=== PATIENT | female | born 1965 | race Caucasian/White ===

== ENCOUNTER → 2017-03-07 | Outpatient (CLI) | payer BC ==
[2017-03-07 12:24] LABS: CHOLESTEROL/HDL RATIO 2.7
== END | disposition home or self-care (01) ==
LOC: C.LABBFT 07:43
PROVIDERS: ATTEND Psychiatry & Neurology Psychiatry
DX: Z51.81 Encounter for therapeutic drug level monitoring (principal); Z79.899 Other long term (current) drug therapy

== ENCOUNTER → 2017-03-08 | Outpatient (CLI) | payer BC ==
[2017-03-08 12:49] LABS: ALT/SGPT 20 U/L (12-78); AST/SGOT 17 U/L (15-37); BLOOD UREA NITROGEN 11 mg/dl (7-18); BUN/CREATININE RATIO 13.9 (10-20); CALCIUM 8.8 mg/dl (8.5-10.1); CARBON DIOXIDE 28 mmol/L (21-32); CHLORIDE 107 mmol/L (98-107); CREATININE 0.77 mg/dl (0.60-1.20); GLUCOSE 83 mg/dl (70-99); POTASSIUM 4.2 mmol/L (3.5-5.1); SODIUM 139 mmol/L (136-145)
[2017-03-08 12:59] LABS: ALB/GLOB RATIO 1.1 (0.9-2); ALKALINE PHOSPHATASE 59 U/L (45-117)
== END | disposition home or self-care (01) ==
LOC: C.LAB1850 11:25
PROVIDERS: ATTEND Internal Medicine Endocrinology, Diabetes & Metabolism
DX: E03.9 Hypothyroidism, unspecified (principal); M79.1 Myalgia

== ENCOUNTER → 2017-06-16 | Outpatient (CLI) | payer BC | END | disposition home or self-care (01) | LOC: C.LABBFT 09:57 | PROVIDERS: ATTEND Internal Medicine Endocrinology, Diabetes & Metabolism | DX: E03.9 Hypothyroidism, unspecified (principal); E55.9 Vitamin D deficiency, unspecified; R20.2 Paresthesia of skin ==

== ENCOUNTER → 2017-08-23 | Outpatient (CLI) | payer BC | END | disposition home or self-care (01) | LOC: C.LABBFT 10:55 | PROVIDERS: ATTEND Internal Medicine Endocrinology, Diabetes & Metabolism | DX: E55.9 Vitamin D deficiency, unspecified (principal); E03.9 Hypothyroidism, unspecified ==

== ENCOUNTER → 2017-10-19 | Outpatient (CLI) | payer BC | END | disposition home or self-care (01) | LOC: C.LABBFT 09:26 | PROVIDERS: ATTEND Internal Medicine Endocrinology, Diabetes & Metabolism | DX: E03.9 Hypothyroidism, unspecified (principal) ==

== ENCOUNTER 2018-09-14 08:58 | Observation (INO) ==
--- NOTE | 2018-08-28 09:01 | PAT Medication Instructions ---
Medication Instructions Date of Service August 28, 2018 Home Medications L. acidophilus [Probiotic] 1 cap PO QDD calcium carbonate [Calcium 600] 1,200 mg PO DAILY cholecalciferol (vitamin D3) 2,000 unit PO QDL clonazepam 0.25 mg PO HS PRN desvenlafaxine succinate 100 mg PO QAM fluticasone [Flonase Allergy] 2 spray INTRANASAL QAM olwdshkggav-gosirupff-tin C-Mn 1 tab PO BIDM levothyroxine 75 mcg PO QAM liothyronine [Cytomel] 5 mcg PO DAILY liothyronine [Cytomel] 10 mcg PO QAM magnesium oxide 400 mg PO BIDM omega 2-xea-gdu-fish oil [Fish Oil] 2 cap PO BID trazodone 50 mg PO HS vortioxetine [Trintellix] 5 mg PO QAM zinc 25 mg PO QDD STOP taking 2 weeks before surgery skvdzkybzxx-qtfmjwafg-jqd C-Mn 1 tab PO BIDM omega 9-bsa-fmx-fish oil [Fish Oil] 2 cap PO BID DO NOT take the morning of surgery calcium carbonate [Calcium 600] 1,200 mg PO DAILY magnesium oxide 400 mg PO BIDM Take morning of surgery With a small sip of water, OTHERWISE NOTHING TO EAT OR DRINK AFTER MIDNIGHT: desvenlafaxine succinate 100 mg PO QAM fluticasone [Flonase Allergy] 2 spray INTRANASAL QAM levothyroxine 75 mcg PO QAM liothyronine [Cytomel] 10 mcg PO QAM vortioxetine [Trintellix] 5 mg PO QAM Take evening before surgery L. acidophilus [Probiotic] 1 cap PO QDD clonazepam 0.25 mg PO HS PRN (if needed) liothyronine [Cytomel] 5 mcg PO DAILY magnesium oxide 400 mg PO BIDM trazodone 50 mg PO HS zinc 25 mg PO QDD Other Notes If you have any questions please call us at [phone] or [phone] or [phone] or [phone]
--- NOTE | 2018-08-28 12:07 | Anesthesiology Consultation ---
Date of Service August 28, 2018 Assessment & Plan (1) Encounter for pre-operative examination: Check test a.m. day of surgery Chart Review Chart Review: Acceptable Risk for Surgery and Patient seen in Pre Admission Testing Teaching & Discussion Instructed NPO after midnight before surgery, except medications with 15 cc of water. Medication instructions provided according to the PAT guidelines. History Surgery Operation Date: 09/14/18 09:20 Proposed Procedures p Robotic Total Laparoscopic Hysterectomy - Cheryle Vickers MD Height/Weight Height: 56 ft Weight: 64.9 kg Allergies Allergy/AdvReac Type Severity Reaction Status Date / Time Penicillins Allergy Mild Hives Verified 08/21/18 12:03 codeine Allergy Hives Verified 08/21/18 12:03 guaifenesin Allergy Hives Verified 08/21/18 12:03 morphine Allergy Hives Verified 08/21/18 12:03 pseudoephedrine Allergy Hives Verified 08/21/18 12:03 Sulfa (Sulfonamide Allergy Hives Verified 08/21/18 12:03 Antibiotics) thimerosal Allergy ulceratiions Verified 08/21/18 12:03 in eye Medications Home Medications Medication Instructions Recorded Confirmed Last Taken L. acidophilus-L. rhamnosus 1 cap PO QDD 08/21/18 08/21/18 Unknown [Probiotic] calcium carbonate [Calcium 600] 1,200 mg PO DAILY 08/21/18 08/21/18 Unknown cholecalciferol (vitamin D3) 2,000 unit PO QDL 08/21/18 08/21/18 Unknown [Vitamin D3] clonazepam 0.25 mg PO HS PRN 08/21/18 08/21/18 Unknown desvenlafaxine succinate 100 mg PO QAM 08/21/18 08/21/18 Unknown fluticasone [Flonase Allergy 2 spray INTRANASAL QAM 08/21/18 08/21/18 Unknown Relief] dxrzmzfkbpo-tevejcwxq-foj C-Mn 1 tab PO BIDM 08/21/18 08/21/18 Unknown [Glucosamine Chondroitin MaxStr] levothyroxine 75 mcg PO QAM 08/21/18 08/21/18 Unknown liothyronine [Cytomel] 5 mcg PO DAILY 08/21/18 08/21/18 Unknown liothyronine [Cytomel] 10 mcg PO QAM 08/21/18 08/21/18 Unknown magnesium oxide 400 mg PO BIDM 08/21/18 08/21/18 Unknown omega 6-cnz-yqh-fish oil [Fish Oil] 2 cap PO BID 08/21/18 08/21/18 Unknown trazodone 50 mg PO HS 08/21/18 08/21/18 Unknown vortioxetine [Trintellix] 5 mg PO QAM 08/21/18 08/21/18 Unknown zinc 25 mg PO QDD 08/21/18 08/21/18 Unknown Past Medical History Medical History Abnormal uterine bleeding Anxiety Depression Fibromyalgia Hearing deficit left ear Hypothyroidism Post traumatic stress disorder Sciatica LLE Past Family History Family History Father Family history of diabetes mellitus Family/Other Family history of diabetes mellitus Past Surgical History Surgical History History of tonsillectomy and adenoidectomy Hx of appendectomy Hx of carpal tunnel repair right Hx of cholecystectomy 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 Physical Exam Vital Signs BP: 112/73 P: 71bpm SPO2: 96% RA T: 98.0 F R: 12 ENMT Mouth: + dental bridge (2 teeth upper L and lower R) and + dental restorations (few caps); no chipped teeth and no loose teeth Thyromental Distance: < 3.5 Finger Breadths (3) Mallampati Class: II Neck normal visual inspection; neck extension not limited Respiratory normal respiratory effort Auscultation: lungs clear to auscultation bilaterally Cardiovascular Rate/Rhythm: regular rate and regular rhythm Heart Sounds: no murmur Vessels: no carotid bruit Testing Electrocardiogram Date: 08/28/18 Sinus rhythm at 60 bpm with first-degree AV block. Laboratory Results 08/28/18 11:58 08/28/18 11:58 Blood Type A Positive 08/28/18 11:58 Antibody Screen NEGATIVE 08/28/18 11:58
[2018-08-28 13:28] LABS: Basophils # (auto) 0.02 K/uL (0-0.2); Basophils % (auto) 0.3 %; Eosinophils # (auto) 0.09 K/uL (0-0.5); Eosinophils % (auto) 1.3 %; Hematocrit (blood only) 41.4 % (37-47); Hemoglobin 13.6 g/dL (12.0-16.0); Immature Granulocytes # (auto) 0.02 K/uL (0.00-0.02); Immature Granulocytes % (auto) 0.3 %; Lymphocytes # (auto) 2.63 K/uL (1.2-3.4); Mean Corpuscular Hgb Conc 32.9 g/dL (32-36); Mean Corpuscular Volume 88.7 fL (80-100); Mean Platelet Volume 11.3 fL (7.4-10.4); Monocytes # (auto) 0.44 K/uL (0.11-0.59); Monocytes % (auto) 6.2 %; Neutrophils # (auto) 3.91 K/uL (1.4-6.5); Neutrophils % (auto) 54.9 %; Platelet Count 190 K/uL (130-400); RDW Coefficient of Variation 13.6 % (11.5-14.5); RDW Standard Deviation 43.8 fL (36.4-46.3); Red Blood Count 4.67 M/uL (4.2-5.4); White Blood Count 7.11 K/uL (4.8-10.8)
[2018-08-28 13:49] LABS: Calcium 8.8 mg/dl (8.5-10.1); Creatinine Clr Calc Pharmacy 97.4 ml/min; Est GFR (African American) 116.3; Est GFR (Non-African American) 100.3; Potassium 4.2 mmol/L (3.5-5.1)
[~2018-09-14 08:58] MED LIST: CEFAZOLIN 2000MG 2,000 MG/15 ML SYR IV SCH; LR 15ML/HR IV SCH; [UNRECOGNIZED DRUG - REMARK] SCH
[2018-09-14] MEDS ORDERED: SCOPOLAMINE 1.5 MG TDSY ONE (09:13)
--- NOTE | 2018-09-14 10:07 | History & Physical Bridge Note ---
Date of Service September 14, 2018 History & Physical Bridge Note I have examined the patient, reviewed the History & Physical and in the interval since the performance of the History & Physical I have noted the following changes of clinical significance: no changes noted
[2018-09-14 10:19] LABS: Pregnancy Test, Serum Negative (Negative)
[2018-09-14] MEDS ORDERED: SIMETHICONE 80 MG CHEW PO PRN (10:21)
[2018-09-14] MEDS ORDERED: ACETAMINOPHEN 325 MG TAB PO PRN (10:21)
[2018-09-14] MEDS ORDERED: MAGNESIUM HYDROXIDE SUSP 30 ML UDC PO PRN (10:21)
[2018-09-14] MEDS ORDERED: MEPERIDINE HCL 50 MG/ML CARP IV PRN ×2 (10:21)
[2018-09-14] MEDS ORDERED: OXYCODONE/ACETAMINOPHEN 5mg/325mg TAB PO PRN (10:21)
[2018-09-14] MEDS ORDERED: KETOROLAC 30 MG/ML VIAL IV PRN (10:21)
[2018-09-14] MEDS ORDERED: MIDAZOLAM HCL 1 MG/ML 2ML VIAL ONE (10:27)
[2018-09-14] MEDS ORDERED: LIDOCAINE HCL 2% 2 ML VIAL/AMP(20MG/ML) INFIL ONE (10:27)
[2018-09-14] MEDS ORDERED: PROPOFOL IV EMULSION 10 MG/ML 20 ML VIAL IV ONE (10:27)
[2018-09-14] MEDS ORDERED: DEXAMETHASONE SOD INJ 4 MG/ML VIAL ONE (10:27)
[2018-09-14] MEDS ORDERED: ONDANSETRON INJ 2 MG/ML 2 ML VIAL ONE ×2 (10:27→12:20)
[2018-09-14] MEDS ORDERED: fentaNYL citrate 100 MCG/2 ML VIAL ONE ×2 (10:27)
[2018-09-14] MEDS ORDERED: ROCURONIUM BROMIDE 10 MG/ML 5 ML VIAL ONE ×2 (10:27→12:20)
[2018-09-14] MEDS ORDERED: ePHEDrine sulfate 50 MG/ML AMP IV PRN (10:31)
[2018-09-14] MEDS ORDERED: ATROPINE SULFATE 0.1 MG/ML 10ML SYR IV PRN (10:31)
[2018-09-14] MEDS ORDERED: ACETAMINOPHEN 1000 MG/100 ML IV IV ONE (10:41)
[2018-09-14] MEDS ORDERED: HYDROmorphone INJ 2 MG/ML SYR/VIAL ONE (11:21)
[2018-09-14] MEDS ORDERED: NEOSTIGMINE METHYLSULFATE 5 MG/5 ML SYR ONE (12:20)
[2018-09-14] MEDS ORDERED: GLYCOPYRROLATE 0.2 MG/ML VIAL ONE (12:20)
[2018-09-14] MEDS ORDERED: METHYLENE BLUE 0.5% 10 ML VIAL ONE (12:20)
[2018-09-14] MEDS ORDERED: KETOROLAC 30 MG/ML VIAL ONE (12:20)
--- NOTE | 2018-09-14 12:38 | Operative Report ---
Post Operative Report Pre & Post Diagnosis Operation Date: 09/14/18 10:30 Pre-Op Diagnosis: Perimenopausal Menorrhagia Post-Op Diagnosis: Perimenopausal Menorrhagia Procedure Operation Date: 09/14/18 10:30 Actual Procedures p Robotic Assisted Total Laparoscopic Hysterectomy Bilateral Salpingectomy, Lysis of Adhesion - Cheryle Vickers MD Surgeon Cheryle Vickers MD Community Educator Octavia Estimated Blood Loss 20 Findings Consistent with Post-Op Diagnosis Significant abdominal adhesive disease Specimens Uterus, Fallopian Tubes, Cervix Anesthesia Type General Complications none Disposition Accompanied Patient To Recovery: Yes Disposition: Recovery Room Description of Procedure The patient was brought to the operating room and placed on the table in dorsal lithotomy position with yellofin stirrups, prepped and draped in standard sterile fashion, and a hard time out was taken prior to proceeding. The bladder was emptied via placement of lynn catheter. A [employer] uterine manipulator was placed in the usual manner. Attention was then turned to the abdomen where optical entry was made at the umbilicus without complication. The abdomen was insufflated and the patient was placed in steep Trendelenburg. Under direct visualization, right and left lower quadrant ports were placed without complication. Survey of the abdomen revealed normal liver edge and LUQ, but significant omental adhesions to midline and RLQ. Straight stick laparoscopy was used with cold sharp and blunt dissection to take down these adhesions carefully, restoring normal visibility. The robot was then docked and surgery proceeded with the surgeon at the console. The ureter was identified on each side and traced along its course into the pelvis. Each fallopian tube in turn was elevated, dissected off the mesosalpinx and left attached to the uterine cornu. Each utero-ovarian ligament was ligated and then divided. Each round ligament was ligated and then divided. The anterior leaflets of the broad ligament were dissected to create a bladder flap which was gently mobilized downward below the colpotomy cup ridge. Each uterine artery was skeletonized, ligated, and then divided. Circumferential colpotomy was then completed following the colpotomy cup guide. The cervix, uterus and bilateral tubes were then retrieved en bloc via the vagina. The vaginal cuff was then closed using V-Milana suture in the typical running non-locked fashion. The needle was retrieved through a trocar, and suction/irrigation was then used to remove any debris and ensure good hemostasis at all working sites. After administration of IV Methylene Blue dye, cystoscopy was then utilized to examine the bladder dome which was free of suture or injury. The ureteral orifices were observed until a good strong jet of blue stained urine was seen from each. The bladder was then drained. The robot was then undocked, and abdominal trocar sites were closed using a UR6 at the umbilical fascia and 4-0 monocryl at each of the skin incisions. A dermabond dressing was applied to each site. A final vaginal exam ensured no materials were present in the vagina and the cuff was intact. The patient was then transferred in stable condition to the recovery room. I attest to the content of the Intraoperative Record and any orders documented therein. Any exceptions are noted below.
[2018-09-14] MEDS: HYDROmorphone INJ 1 MG/ML SYRINGE IV PRN ×9 (13:00→21:40)
--- NOTE | 2018-09-14 13:17 | Anesthesiology Progress Note ---
Date of Service September 14, 2018 Anesthesia Post Procedure Vital Signs Vital Signs: Temp Pulse Pulse Resp BP Pulse Ox 09/14/18 13:10 80 14 114/76 97 09/14/18 13:00 90 17 119/78 98 09/14/18 12:50 92 H 12 123/67 97 09/14/18 12:47 36.9 C 96 H 14 121/79 99 09/14/18 09:23 36.6 C 77 16 123/77 98 Pain Intensity Medial Abdomen: Pain Intensity: 7 Notes Mental Status: alert / awake / arousable Patient Amnestic to Procedure: Yes Nausea / Vomiting: adequately controlled Pain: adequately controlled Airway Patency, RR, SpO2: stable & adequate BP & HR: stable & adequate Hydration State: stable & adequate Anesthetic Complications: no major complications apparent and Pt Satisfied with anesthetic care
[2018-09-14] MEDS: ONDANSETRON INJ 2 MG/ML 2 ML VIAL IV PRN ×2 (14:45→19:53)
[2018-09-14 15:20] LABS: Hematocrit (blood only) 38.7 % (37-47); Hemoglobin 13.1 g/dL (12.0-16.0)
[2018-09-14] MEDS ORDERED: clonazePAM 0.5 MG TAB PO STA (17:39)
[2018-09-14] MEDS: PROMETHAZINE HCL 25 MG in SODIUM CHLORIDE 0.9% 50 ML IV PRN (17:54)
[2018-09-14] MEDS: LACTATED RINGER'S 1,000 ML IV SCH ×2 (17:58→19:41)
--- NOTE | 2018-09-14 18:05 | Gynecologic Progress Note ---
Date of Service September 14, 2018 Assessment & Plan (1) Encounter for postoperative care: Patient is POD#0 from Robotic TLH/Salpingectomy/Cystoscopy including significant lysis of abdominal adhesions. She has a postop course complicated by nausea, abdominal pain, and what appears to be anxiety as well. Vitals are currently normal and her post op Hgb was reassuring. Plan: Decrease diet to clears as patient feels able, and do not force solids until appetite is there. Changed pain medication orders to dilaudid 1-2mg IV Q2h prn which is stocked on this unit and more familiar to nursing staff here. Will give first dose now, as well as patient's home dose of klonopin right now. At 9pm, to allow some time between several sedating meds, can then give patient's home dose of trazodone. Antinausea meds available prn. Patient to stay overnight for observation and will send additional labs including WBC and CMP now, with home meds ordered for AM since she will be here. If abdominal pain worsens from here, given significant work around the bowel, would have low threshold to obtain flat plate for ileus vs perforation. Plan reviewed with GLEN Hobbs who is in agreement and knows she can contact me at any time via [employer] regarding Ms. Aguilar. Dr. Dudley, medical front desk coordinator for my practice, will also be brought up to date. Subjective Patient visited on post surgery floor. She is currently in tears, complaining specifically of nausea, and of abdominal pain. GLEN Hobbs arrived in room as well shortly after my arrival. She confirms that patient has struggled with nausea, and therefore she was given IV antiemetic, but pain medicine was not recently given on the theory it would worsen her nausea - and could ultimately cause emesis, which would not of course improve the pain. MAR reviewed with Faby at pt bedside and I see the last dose of any narcotic was 1:55pm in PACU, and patient has had no further narcotic now at 5:30pm. She did receive toradol but it is not relieving her pain. The patient says she did tolerate a cracker PO and has not vomited at all. However, once RN leaves the room, patient cries harder and admits she has been afraid to admit she is still nauseated or to avoid eating, as she believes if she c/o nausea the pain meds will be withheld even longer. She feels she has been encouraged to eat solid foods even though she would prefer not to eat anything at all with her current belly pain and nausea. The patient did ambulate to BR and was able to void, but felt quite lightheaded. She did not pass out. She has not had percocet yet. Empathy offered for what has surely been a fearful and painful afternoon. This brings the patient to admit she feels very anxious and that she is struggling not to panic. I gather from the RN that Estefani was acting agitated in PACU and expressing a fear of the patient in the next bed over. I note that she usually takes klonopin at home and tramadol at bedtime. She was asked if she would be interested in an anxiolytic to help her relax while recovery proceeds and she is eager for that. I also note that this patient is on an unusual floor for our robotic hysterectomy patients, as the 4N rooms were full. RN notes that the demerol Ms. Aguilar was ordered is not stocked here and has to be sent to this floor one dose at at time, and that she (the RN) is more comfortable with dilaudid which they *do* stock here. Physical Exam Vital Signs (Past 24 Hours): Last Vital Signs Temp 36.7 C 09/14/18 14:20 Pulse 80 09/14/18 16:19 Resp 17 09/14/18 16:19 BP 120/78 09/14/18 16:19 Pulse Ox 95 09/14/18 16:19 Constitutional: + ill appearing and + in distress Crying, moving very little in bed, speaking at low volume just above a mumble. Respiratory: normal respiratory effort and able to speak in complete s entences; no respiratory distress Cardiovascular: Rate/Rhythm: regular rate Gastrointestinal (Abdomen): Inspection/Auscultation: abdomen normal to inspection, + abdominal surgical scar and + abdominal surgical incision; abdomen not distended Percussion/Palpation: abdomen soft; abdomen nontender, no guarding, not tympanic to percussion and no fluid wave Skin: no rashes, warm and dry Psychiatric: Orientation: alert and oriented x 3 Eye Contact: good eye contact Affect: + anxious affect and + tearful affect Genitourinary: Mckayla pad without blood Results & Data Laboratory Results Laboratory Results - last 24 hr 09/14/18 09/14/18 09:26 15:06 Hgb 13.1 Hct 38.7 HCG, Qual Negative
[2018-09-14 18:41] LABS: Basophils # (auto) 0.01 K/uL (0-0.2); Basophils % (auto) 0.1 %; Hematocrit (blood only) 38.4 % (37-47); Hemoglobin 13.1 g/dL (12.0-16.0); Immature Granulocytes # (auto) 0.02 K/uL (0.00-0.02); Immature Granulocytes % (auto) 0.2 %; Lymphocytes # (auto) 0.92 K/uL (1.2-3.4); Lymphocytes % (auto) 7.4 %; Mean Corpuscular Hgb Conc 34.1 g/dL (32-36); Mean Corpuscular Volume 87.7 fL (80-100); Monocytes # (auto) 0.38 K/uL (0.11-0.59); Neutrophils # (auto) 11.18 K/uL (1.4-6.5); Neutrophils % (auto) 89.3 %; Platelet Count 176 K/uL (130-400); RDW Coefficient of Variation 13.4 % (11.5-14.5); RDW Standard Deviation 42.7 fL (36.4-46.3); Red Blood Count 4.38 M/uL (4.2-5.4); White Blood Count 12.51 K/uL (4.8-10.8)
[2018-09-14 18:56] LABS: Albumin Level 3.2 gm/dl (3.4-5.0); BUN Creatinine Ratio 16.4 (10-20); Calcium 8.2 mg/dl (8.5-10.1); Creatinine Clr Calc Pharmacy 71.6 ml/min; Est GFR (African American) 89.4; Est GFR (Non-African American) 77.1; Potassium 3.8 mmol/L (3.5-5.1)
[2018-09-14 18:59] LABS: Albumin Globulin Ratio 0.9 (0.9-2); Bilirubin,Total 0.4 mg/dl (0.2-1); Globulin 3.5 gm/dl (2.5-4.0); Total Protein 6.7 gm/dl (6.4-8.2)
[2018-09-14] MEDS ORDERED: TRAZODONE HCL 50 MG TAB PO SCH (21:00)
[2018-09-14] MEDS: DOCUSATE SODIUM 100 MG CAP PO SCH (21:40)
[2018-09-15] MEDS: HYDROmorphone INJ 1 MG/ML SYRINGE IV PRN (00:18)
[2018-09-15] MEDS: ONDANSETRON INJ 2 MG/ML 2 ML VIAL IV PRN (01:52)
[2018-09-15] MEDS: LACTATED RINGER'S 1,000 ML IV SCH ×2 (01:52→10:29)
[2018-09-15] MEDS: PROMETHAZINE HCL 25 MG in SODIUM CHLORIDE 0.9% 50 ML IV PRN ×2 (03:06→10:28)
[2018-09-15] MEDS: OXYCODONE/ACETAMINOPHEN 5mg/325mg TAB PO PRN ×4 (03:06→14:53)
[2018-09-15] MEDS ORDERED: LEVOTHYROXINE SODIUM 75 MCG TABLET PO SCH (06:30)
[2018-09-15] MEDS ORDERED: LORazepam 0.5 MG TAB PO PRN (08:52)
--- NOTE | 2018-09-15 08:52 | Gynecologic Progress Note ---
Date of Service September 15, 2018 Assessment & Plan (1) Encounter for postoperative care: Patient is POD#1 from TLH/Salpingectomy/Cysto/DAISY. 1) Ongoing pain that is possibly exacerbated by anxiety for which she takes several home medications. These will be given this AM as they are due; home meds being used as they are mostly non-formulary. Will also offer ativan prn. Some RUQ pain that is likely laparoscopic gas related. Abdominal discomfort likely post surgical with dissection of omental adhesions making it more severe that with average hyster. Bowel sounds normal, passing flatus, and at this point my suspicion of bowel injury remains low. 2) Mild LFT elevations noted on CMP yesterday. Could be due to anesthesia or acute events, or possibly pre-existing; will recheck at noon today before discharge to make sure not continuing to elevate. Could also follow after discharge if they have not normalized. 3) Nausea will continue to be managed with phenergan which patient states works better than zofran. Can offer Rx for home as well. 4) Discharge planning: Patient states being in hospital creates a lot of anxiety as she has h/o C-diff obtained in hospital setting, but she is anxious about knowing when it's safe to leave. Advised she should make active effort to ambulate halls today, void without assistance, use PO pain medicine, and try to tolerate solid food, so that I can be sure she is stable for discharge home. Goal is to have patient out of hospital by afternoon if she meets these milestones. Subjective Patient chart reviewed over night. Visited patient in room with at 8:15am. She is lying in bed semi-chung's. C/O some residual nausea, and pain that is now located in RUQ specifically. She reports she has been able to void, to sleep much of the night, and to ambulate to . She states she has not tried to drink anything but did try crackers this morning with success. She has passed gas several times. She has not vomited at all since surgery. Physical Exam Vital Signs (Past 24 Hours): Last Vital Signs Temp 36.7 C 09/15/18 07:18 Pulse 73 09/15/18 07:18 Resp 16 09/15/18 07:18 BP 103/67 09/15/18 07:18 Pulse Ox 97 09/15/18 07:18 Physical Exam: Her voice in the beginning of our visit is soft and mumbly. Her movements are initially limited with occasional wincing during speech. As conversation progresses, however, I note that she is able to speak with more volume and fluidity. Further the wincing stops, and she begins to move more normally in bed, reaching for things and adjusting her covers without difficulty. Respiratory: normal respiratory effort, lungs clear to auscultation Cardiovascular: RRR, no murmur, no edema Gastrointestinal (Abdomen): normal bowel sounds, soft, nontender, no hepatosplenomegaly Inspection/Auscultation: normal bowel sounds and + abdominal surgical incision (C/D/I x4 sites.); abdomen not distended Skin: no rashes, warm and dry Psychiatric: Orientation: alert and oriented x 3 Eye Contact: good eye contact By the end of my visit, patient beginning to show some sense of humor, smiles when I ask if she is looking forward to the coffee that just arrived on her breakfast tray and states "I've been waiting since yesterday - that's a part of my morning routine and I'm really ready for it." Results & Data Laboratory Results Laboratory Results - last 24 hr 09/14/18 09/14/18 09/14/18 09:26 15:06 18:26 WBC 12.51 H RBC 4.38 Hgb 13.1 13.1 Hct 38.7 38.4 MCV 87.7 MCH 29.9 MCHC 34.1 RDW Std Deviation 42.7 RDW Coeff of Lorri 13.4 Plt Count 176 MPV 10.0 Immature Gran % (Auto) 0.2 Neut % (Auto) 89.3 Lymph % (Auto) 7.4 Pershing % (Auto) 3.0 Eos % (Auto) 0.0 Baso % (Auto) 0.1 Immature Gran # (Auto) 0.02 Neut # (Auto) 11.18 H Lymph # (Auto) 0.92 L Pershing # (Auto) 0.38 Eos # (Auto) 0.00 Baso # (Auto) 0.01 Sodium Potassium Chloride Carbon Dioxide Anion Gap BUN Creatinine Est Cr Clr Drug Dosing Est GFR ( Amer) Est GFR (Non-Af Amer) BUN/Creatinine Ratio Glucose Calcium Total Bilirubin AST ALT Alkaline Phosphatase Total Protein Albumin Globulin Albumin/Globulin Ratio HCG, Qual Negative 09/14/18 18:26 WBC RBC Hgb Hct MCV MCH MCHC RDW Std Deviation RDW Coeff of Lorri Plt Count MPV Immature Gran % (Auto) Neut % (Auto) Lymph % (Auto) Pershing % (Auto) Eos % (Auto) Baso % (Auto) Immature Gran # (Auto) Neut # (Auto) Lymph # (Auto) Pershing # (Auto) Eos # (Auto) Baso # (Auto) Sodium 137 Potassium 3.8 Chloride 107 Carbon Dioxide 23 Anion Gap 7.0 BUN 14 Creatinine 0.87 Est Cr Clr Drug Dosing 71.6 Est GFR ( Amer) 89.4 Est GFR (Non-Af Amer) 77.1 BUN/Creatinine Ratio 16.4 Glucose 174 H Calcium 8.2 L Total Bilirubin 0.4 AST 120 H ALT 116 H Alkaline Phosphatase 57 Total Protein 6.7 Albumin 3.2 L Globulin 3.5 Albumin/Globulin Ratio 0.9 HCG, Qual
[2018-09-15] MEDS ORDERED: LIOTHYRONINE SODIUM 5 MCG TAB PO SCH ×2 (09:00→14:00)
[2018-09-15] MEDS: DOCUSATE SODIUM 100 MG CAP PO SCH (09:23)
[2018-09-15] MEDS: IBUPROFEN 600 MG TAB PO PRN ×2 (09:23→13:40)
[2018-09-15] MEDS ORDERED: VORTIOXETINE HYDROBROMIDE 5 MG PO SCH (10:00)
[2018-09-15] MEDS ORDERED: DESVENLAFAXINE SUCCINATE 100 MG PO SCH (10:00)
[2018-09-15 12:31] LABS: Bilirubin Direct 0.2 mg/dl (0-0.2); Bilirubin,Total 0.5 mg/dl (0.2-1); Total Protein 5.9 gm/dl (6.4-8.2)
--- NOTE | 2018-09-20 08:44 | Discharge Summary ---
Date of Service September 20, 2018 Discharge Data Procedures Performed Operation Date: 09/14/18 10:30 Actual Procedures p Robotic Assisted Total Laparoscopic Hysterectomy Bilateral Salpingectomy, Lysis of Adhesion - Cheryle Vickers MD Hospital Course (1) Encounter for postoperative care: Patient underwent uncomplicated TLH/Salpingectomy/cystoscopy. She had a postop course complicated by nausea and insufficient pain management, which was eventually improved with alterations in her pain regimen and antiemetic medication. A transient increase in LFT's was noted but improved prior to discharge. Patient was discharged in good condition on POD#1 with plan for follow up in office on 2 and 6 week postop.
== END 2018-09-15 15:05 | disposition home or self-care (01) ==
LOC: 3W 08:58 → ASU 08:58

== ENCOUNTER 2018-10-12 10:59 | Inpatient (IN) ==
[2018-10-12] MEDS ORDERED: PROMETHAZINE 12.5 MG/50.5 ML BAG IV STA (12:20)
[2018-10-12] MEDS ORDERED: fentaNYL citrate 100 MCG/2 ML VIAL IV STA (12:20)
[2018-10-12] MEDS ORDERED: SODIUM CHLORIDE 0.9% 1000ML 1,000 ML IV SCH (12:30)
[2018-10-12 12:47] LABS: Basophils # (auto) 0.02 K/uL (0-0.2); Basophils % (auto) 0.2 %; Eosinophils # (auto) 0.22 K/uL (0-0.5); Eosinophils % (auto) 2.4 %; Hematocrit (blood only) 40.7 % (37-47); Immature Granulocytes # (auto) 0.02 K/uL (0.00-0.02); Immature Granulocytes % (auto) 0.2 %; Lymphocytes # (auto) 3.11 K/uL (1.2-3.4); Mean Corpuscular Hgb Conc 34.4 g/dL (32-36); Mean Corpuscular Volume 86.4 fL (80-100); Mean Platelet Volume 9.8 fL (7.4-10.4); Monocytes # (auto) 0.57 K/uL (0.11-0.59); Monocytes % (auto) 6.2 %; Neutrophils # (auto) 5.22 K/uL (1.4-6.5); Platelet Count 179 K/uL (130-400); RDW Coefficient of Variation 13.4 % (11.5-14.5); RDW Standard Deviation 42.6 fL (36.4-46.3); Red Blood Count 4.71 M/uL (4.2-5.4); White Blood Count 9.16 K/uL (4.8-10.8)
[2018-10-12 12:52] LABS: Appearance Urine Clear (Clear); Bilirubin Urine Negative (Negative); Blood Urine Negative (Negative); Color Urine Yellow; Glucose Urine UA Negative (Negative); Ketones Urine Negative (Negative); Leukocyte Esterase Urine Negative (Negative); Nitrite Urine Negative (Negative); Protein Urine Negative (Negative); Specific Gravity Urine 1.013 (1.000-1.030); Urobilinogen Urine Negative (Negative)
--- NOTE | 2018-10-12 12:53 | Emergency Department Note ---
History of Present Illness General Chief complaint: Abdominal Pain Stated complaint: LOWER ABD PAIN,CHEST PAIN, SENT BY DR Hansen Seen by Provider: 10/12/18 11:50 History of Present Illness Maximum Pain Intensity: 6 Patient is a 53-year-old female who is 4 weeks status post laparoscopic robotic assisted supracervical hysterectomy who returns to the emergency department for ongoing left-sided abdominal pain, nausea, chest pressure and dizziness times roughly 4 weeks. Patient underwent surgery performed by Dr. Vickers at the end of August. She states that since then she has had symptoms. She was seen and evaluated here thoroughly on 10/06, with an acute abdominal series, abdominal CT, EKG and labs. There is nothing acute on her ED work-up, and she was prescribed Nexium. She had follow-up with her primary care provider Dr. Pickens on 10/08. Zofran was prescribed. Stool studies were obtained and were resulted yesterday and were negative. The patient had follow-up with Dr. Pickens today on 10/12 and was referred back to the emergency department for her ongoing symptoms. The patient reports that she has been eating and drinking, but after a certain point of intake, she gets pressure in her chest and has to stop eating. She notes a lot of belching and gas and regurgitation. She has not been vomiting. She has been taking the Nexium. Zofran has been ineffective. She reports primarily midsternal chest pressure. She denies any shortness of breath. No cough, hemoptysis or sputum production. She has not run any fevers. She continues to note left-sided abdominal pain, upper quadrant under her ribs and down to the left lower quadrant. She has been taking MiraLAX to stave off constipation in case that is related. She is having bowel movements daily. Pain is independent of her bowel movements. She has had follow-up with her surgeon, Dr. Vickers twice. She is still having some scant bloody discharge, no foul-smelling discharge. She continues to feel dizzy, both at rest and with activity. She is using Tylenol sparingly for her discomfort. Dr. Pickens referred her to the emergency department, expressing concerns for both the chest and abdominal symptoms. Home Medications Home Medications Medication Instructions Recorded Confirmed Type Probiotic 1 cap PO QDD 08/21/18 10/12/18 History Trintellix 5 mg PO QAM 08/21/18 10/12/18 History cholecalciferol (vitamin D3) 1,000 units PO DAILY 08/21/18 10/12/18 History [Vitamin D3] clonazepam 0.25 mg PO DIRECTED PRN 08/21/18 10/12/18 History desvenlafaxine succinate 100 mg PO QAM 08/21/18 10/12/18 History fluticasone propionate [Flonase 2 spray INTRANASAL QAM 08/21/18 10/12/18 History Allergy Relief] levothyroxine 75 mcg PO QAM 08/21/18 10/12/18 History liothyronine [Cytomel] 5 mcg PO BID 08/21/18 10/12/18 History acetaminophen [Tylenol Extra 1,000 mg PO Q6H PRN 09/14/18 10/12/18 History Strength] ibuprofen [Motrin IB] 200 mg PO BID PRN 09/25/18 10/12/18 History promethazine [Phenergan] 25 mg NV Q6H PRN MDD 2 09/25/18 10/12/18 History esomeprazole magnesium [Nexium] 20 mg PO DAILY 10/12/18 10/12/18 History ondansetron 4 mg PO UD PRN 10/12/18 10/12/18 History polyethylene glycol 3350 [Miralax] 17 g PO DAILY 10/12/18 10/12/18 History trazodone 50 mg PO HS 10/12/18 10/12/18 History Allergies Allergy/AdvReac Type Severity Reaction Status Date / Time Penicillins Allergy Mild Hives Verified 10/12/18 11:20 codeine Allergy Hives Verified 10/12/18 11:20 guaifenesin Allergy Hives Verified 10/12/18 11:20 morphine Allergy Hives Verified 10/12/18 11:20 pseudoephedrine Allergy Hives Verified 10/12/18 11:20 Sulfa (Sulfonamide Allergy Hives Verified 10/12/18 11:20 Antibiotics) thimerosal Allergy ulceratiions Verified 10/12/18 11:20 in eye Past Med/Surg History Medical History GERD (gastroesophageal reflux disease) (Resolved) Fibromyalgia (Chronic) Anxiety (Chronic) Depression (Chronic) Post traumatic stress disorder (Chronic) Hearing deficit (Chronic) left ear Hypothyroidism (Chronic) Sciatica (Chronic) LLE Abnormal uterine bleeding (Resolved) Surgical History History of hysterectomy (Resolved) History of tonsillectomy and adenoidectomy (Resolved) Nausea and vomiting after administration of anesthetic agent (Chronic) Hx of appendectomy (Resolved) Hx of cholecystectomy (Resolved) Hx of carpal tunnel repair (Resolved) right 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19, [employer] related Family History Father Family history of diabetes mellitus Family/Other Family history of diabetes mellitus Social History Preferred Language: Czech Communication Ability: Effective Slunk Skinner Required: No Beliefs That Will Affect Care: None Current Living Situation: Spouse Other Information That Helps Us Care for You: No Feels Safe at Home: Yes Safety Concerns: Feels Safe At This Time Smoking Status: Never smoker Do You Dip or Chew Tobacco: No Second Hand Exposure: No Tobacco Cessation Education Requested by Patient: No Hx Alcohol Use: No Hx Substance Use: No Review of Systems A total of 10 systems reviewed and were otherwise negative Physical Exam Vital Signs Vital Signs - 24 hr 10/12/18 11:01 10/12/18 11:49 10/12/18 12:40 Temperature 36.4 C L Temperature Source Oral Sepsis Recent Fever Within 48 Hours No Sepsis Action Taken by Nursing No Action Required Pulse Rate - Lying 73 Pulse Rate - Sitting 74 Pulse Rate 78 Pulse Rate [Left Finger] 66 Pulse Rhythm [Left Finger] Pulse Strength [Left Finger] Respiratory Rate 18 16 Respiratory Effort / Characteristics Non-Labored Respiratory Depth Normal Respiratory Pattern Regular Blood Pressure - Lying 123/83 Blood Pressure - Sitting 129/79 Blood Pressure 117/79 Blood Pressure [Right Arm] 139/88 Blood Pressure Mean 91 Blood Pressure Mean [Right Arm] 105 Blood Pressure Position Sitting Blood Pressure Position [Right Arm] Pulse Oximetry 99 99 Oxygen Delivery Method Room Air Room Air 10/12/18 13:00 10/12/18 14:00 10/12/18 15:44 Temperature Temperature Source Sepsis Recent Fever Within 48 Hours Sepsis Action Taken by Nursing Pulse Rate - Lying Pulse Rate - Sitting Pulse Rate Pulse Rate [Left Finger] 668 H 73 82 Pulse Rhythm [Left Finger] Regular Pulse Strength [Left Finger] Respiratory Rate 23 15 20 Respiratory Effort / Characteristics Non-Labored Non-Labored Non-Labored Respiratory Depth Normal Normal Normal Respiratory Pattern Regular Regular Regular Blood Pressure - Lying Blood Pressure - Sitting Blood Pressure Blood Pressure [Right Arm] 141/90 H 122/79 101/70 Blood Pressure Mean Blood Pressure Mean [Right Arm] 107 93 80 Blood Pressure Position Blood Pressure Position [Right Arm] Pulse Oximetry 98 99 98 Oxygen Delivery Method Room Air Room Air Room Air 10/12/18 16:32 10/12/18 17:14 Temperature 37.4 C Temperature Source Oral Sepsis Recent Fever Within 48 Hours Sepsis Action Taken by Nursing Pulse Rate - Lying Pulse Rate - Sitting Pulse Rate 73 Pulse Rate [Left Finger] 75 Pulse Rhythm [Left Finger] Regular Pulse Strength [Left Finger] Normal Respiratory Rate 20 18 Respiratory Effort / Characteristics Non-Labored Respiratory Depth Normal Respiratory Pattern Regular Blood Pressure - Lying Blood Pressure - Sitting Blood Pressure 118/80 Blood Pressure [Right Arm] 111/74 Blood Pressure Mean Blood Pressure Mean [Right Arm] 86 Blood Pressure Position Blood Pressure Position [Right Arm] Lying Pulse Oximetry 97 98 Oxygen Delivery Method Room Air Room Air CONSTITUTIONAL: Patient is an ill although nontoxic appearing 53-year-old female who is awake and alert and laying supine on the gurney in mild distress due to her stated complaints. Vital signs are stable and she is afebrile. EYES: Pupils equal, round, reactive to light and accommodation. EOMs intact without nystagmus. Sclera are anicteric. ENT: Tympanic membranes intact, with normal landmarks. External canals are c lear. Oral and nasopharynx are clear. Mucous membranes are dry, no lesions, tongue and gums appear normal. CARDIOVASCULAR: Regular rate and rhythm, with normal S1 and S2, no murmur or gallop or rub is heard. No JVD. Peripheral pulses easy to palpable. RESPIRATORY: Breath sounds equal and clear to auscultation without wheezes, rales, or rhonchi heard. Full and equal chest expansion without accessory muscle use or retractions. Patient has reproducible discomfort to palpation over the sternum and the costochondral region bilaterally, left worse than right. GI: Bowel sounds are present. Multiple well-healed surgical scars are noted without signs of infection. Abdomen is soft, nondistended, tender to percussion and palpation in the left upper and left lower quadrants, with voluntary guarding in the left lower quadrant. No guarding, rebound or rigidity. MUSCULOSKELETAL: Full range of motion of extremities x 4 with good strength. No cyanosis, edema, joint tenderness or swelling. No deformity. Calves are soft and nontender bilaterally. No edema. No palpable cords. INTEGUMENTARY: No lesions or rash, normal skin turgor. NEUROLOGICAL: Alert, oriented, and cooperative. Cranial nerves, sensation and strength grossly intact. Pupils round, equal, and react to light, EOMs are full. LYMPH: No lymphadenopathy. Course Patient was seen and assessed as above. She presents to the emergency department for multiple symptoms that she has had ongoing for the last 4 weeks since her hysterectomy. IV lock was initiated. She was hydrated with normal saline solution. She was medicated with Phenergan 12.5 mg IV for nausea and fentanyl 50 mcg IV for pain. Laboratory studies were collected including CBC with differential, CMP, lipase, troponin and urinalysis. EKG was performed and was as noted below. The patient was observed on the manager monitoring. Orthostatic vitals were ordered, but were fully completed. Given her persistent symptoms, chest CT to rule out PE, and abdominal and pelvic CT with IV contrast to explore the abdominal pain were ordered. Laboratory studies noted a normal white count at 9100. No left shift or bandemia. H&H is 14 and 40. Coags are within normal limits. Bilateral lites are without significant abnormality. Sodium 139, potassium 4.1, chloride 108, carbon accent 25, BUN 9 and creatinine 0.69. Liver functions are within normal limits. Lipase is normal. Troponin is negative x1. Urine microscopy is completely clear without signs of infection. Abdominal and pelvic CT noted postsurgical changes and chronic changes without evidence for acute pathology. Chest CT was positive for bilateral pulmonary emboli, 2 on the left and one small filling defect on the right. All laboratory and diagnostic imaging studies were reviewed with attending physician Dr. Jaramillo, who agreed with the ED work-up. Given the chest CT findings, consultation was placed with the [facility] Hospitalist Service for further care and management. Patient was discussed with Dr. Plunkett. Hypercoag panel was drawn, then heparin was initiated. I did also speak with the patient's surgeon, Dr. Vickers, to notify her of the chest CT findings. She was in agreement with any type of anticoagulation as felt necessary per the admitting service. All laboratory diagnostic imaging studies were discussed with the patient and her spouse. She was made aware that she would be brought into the hospital for further care and management. They expressed understanding of this. Administered Medications Acetaminophen (Tylenol) 1,000 mg PO Q6H PRN PRN Reason: Pain Stop: 11/11/18 17:13 Last Admin: 10/12/18 19:06 Dose: 1,000 mg Documented by: [id number] Ioversol (Optiray 320 125ml) 94 ml IV ONCE PRN PRN Reason: Interaction Checking Stop: 10/16/18 13:39 Last Admin: 10/12/18 13:41 Dose: 94 ml Documented by: [id number] Ketorolac Tromethamine (Toradol) 30 mg IV Q6H PRN PRN Reason: Pain Stop: 10/17/18 17:13 Last Admin: 10/12/18 19:07 Dose: 30 mg Documented by: [id number] Lactobacillus Acidophilus (Floranex) 1 tab PO QDD [facility] Stop: 11/11/18 17:13 Last Admin: 10/12/18 18:25 Dose: Not Given Documented by: [id number] Warfarin Sodium (Coumadin) 10 mg PO DAILY@1600 [facility] Stop: 11/11/18 17:13 Last Admin: 10/12/18 18:24 Dose: 10 mg Documented by: [id number] Discontinued Medications Fentanyl Citrate (Fentanyl Citrate) 50 mcg IV NOW STA Stop: 10/12/18 12:21 Last Admin: 10/12/18 12:51 Dose: 50 mcg Documented by: [id number] Heparin Sodium (Porcine) (Heparin Sodium (Porcine)) Confirm Administered Dose 5,000 units .ROUTE .STK-MED ONE Stop: 10/12/18 14:53 Last Admin: 10/12/18 15:40 Dose: 5,000 units Documented by: [id number] Cosigned by: [id number] Heparin Sodium/Dextrose () 1 ea IV NOW STA; Protocol Stop: 10/12/18 14:35 Last Admin: 10/12/18 15:40 Dose: 1 ea Documented by: [id number] Heparin Sodium/Dextrose (Heparin Sodium/Dextrose) Confirm Administered Dose 25,000 units IV .STK-MED ONE Stop: 10/12/18 14:53 Last Admin: 10/12/18 15:40 Dose: 1,100 units Documented by: [id number] Cosigned by: [id number] Promethazine HCl (Phenergan) 12.5 mg in 50.5 mls @ 202 mls/hr IV NOW STA Stop: 10/12/18 12:34 Last Infusion: 10/12/18 13:23 Dose: 0 mls/hr Documented by: [id number] Admin: 10/12/18 13:06 Dose: 202 mls/hr Documented by: [id number] Sodium Chloride (Nss 1000ml) 1,000 mls @ 999 mls/hr IV .[id number] BRENDA Stop: 10/12/18 13:30 Last Infusion: 10/12/18 13:23 Dose: 0 mls/hr Documented by: [id number] Admin: 10/12/18 12:51 Dose: 999 mls/hr Documented by: [id number] Sodium Chloride (Nss 1000ml) 1,000 mls @ 250 mls/hr IV .Q4H BRENDA Stop: 11/11/18 12:29 Last Admin: 10/12/18 18:50 Dose: Not Given Documented by: [id number] Infusion: 10/12/18 18:24 Dose: 0 mls/hr Documented by: [id number] Admin: 10/12/18 13:23 Dose: 250 mls/hr Documented by: [id number] Sodium Chloride (1/2 Nss) 1,000 mls @ 80 mls/hr IV .[id number] BRENDA Stop: 11/11/18 17:13 Last Infusion: 10/12/18 19:25 Dose: 0 mls/hr Documented by: [id number] Admin: 10/12/18 18:24 Dose: 80 mls/hr Documented by: [id number] Medical Decision Making Differential Diagnosis Differential diagnosis includes acute myocardial infarction, acute coronary syndrome, myocarditis, pericarditis, pulmonary embolism, pneumonia, anemia , GERD, gastritis, esophagitis, PUD, bowel obstruction, perforation, abscess, musculoskeletal, anxiety, costochondritis, among others. Medical Records Attestation: I reviewed the patient's medical records. Home Medications Current Medication List: was personally reviewed by me Laboratory Data Attestation: I reviewed the patient's lab results. Result diagrams: 10/12/18 12:28 10/12/18 12:28 Lab Results 10/12/18 10/12/18 10/12/18 Range/Units 12:28 12:28 12:39 WBC 9.16 (4.8-10.8) K/uL RBC 4.71 (4.2-5.4) M/uL Hgb 14.0 (12.0-16.0) g/dL Hct 40.7 (37-47) % MCV 86.4 (80-100) fL MCH 29.7 (25-34) pg MCHC 34.4 (32-36) g/dL RDW Std Deviation 42.6 (36.4-46.3) fL RDW Coeff of Lorri 13.4 (11.5-14.5) % Plt Count 179 (130-400) K/uL MPV 9.8 (7.4-10.4) fL Immature Gran % (Auto) 0.2 % Neut % (Auto) 57.0 % Lymph % (Auto) 34.0 % [place] % (Auto) 6.2 % Eos % (Auto) 2.4 % Baso % (Auto) 0.2 % Immature Gran # (Auto) 0.02 (0.00-0.02) K/uL Neut # (Auto) 5.22 (1.4-6.5) K/uL Lymph # (Auto) 3.11 (1.2-3.4) K/uL [place] # (Auto) 0.57 (0.11-0.59) K/uL Eos # (Auto) 0.22 (0-0.5) K/uL Baso # (Auto) 0.02 (0-0.2) K/uL PT (9.0-12.0) Seconds INR (0.9-1.1) APTT (21.0-31.0) Seconds PTT Ratio Sodium 139 (136-145) mmol/L Potassium 4.1 (3.5-5.1) mmol/L Chloride 108 H (98-107) mmol/L Carbon Dioxide 25 (21-32) mmol/L Anion Gap 7.0 (3-11) BUN 9 (7-18) mg/dl Creatinine 0.69 (0.6-1.2) mg/dl Est Cr Clr Drug Dosing 90.3 ml/min Est GFR ( Amer) 116.8 Est GFR (Non-Af Amer) 100.8 BUN/Creatinine Ratio 12.4 (10-20) Glucose 83 (70-99) mg/dl Calcium 9.3 (8.5-10.1) mg/dl Total Bilirubin 0.4 (0.2-1) mg/dl AST 21 (15-37) U/L ALT 31 (12-78) U/L Alkaline Phosphatase 60 (45-117) U/L Troponin I < 0.015 (0-0.045) ng/ml Total Protein 7.3 (6.4-8.2) gm/dl Albumin 3.8 (3.4-5.0) gm/dl Globulin 3.5 (2.5-4.0) gm/dl Albumin/Globulin Ratio 1.1 (0.9-2) Lipase 147 (73-393) U/L Urine Color Yellow Urine Appearance Clear (Clear) Urine pH 8.0 H (4.5-7.5) Ur Specific [place] 1.013 (1.000-1.030) Urine Protein Negative (Negative) Urine Glucose (UA) Negative (Negative) Urine Ketones Negative (Negative) Urine Blood Negative (Negative) Urine Nitrite Negative (Negative) Urine Bilirubin Negative (Negative) Urine Urobilinogen Negative (Negative) Ur Leukocyte Esterase Negative (Negative) 10/12/18 Range/Units 14:40 WBC (4.8-10.8) K/uL RBC (4.2-5.4) M/uL Hgb (12.0-16.0) g/dL Hct (37-47) % MCV (80-100) fL MCH (25-34) pg MCHC (32-36) g/dL RDW Std Deviation (36.4-46.3) fL RDW Coeff of Lorri (11.5-14.5) % Plt Count (130-400) K/uL MPV (7.4-10.4) fL Immature Gran % (Auto) % Neut % (Auto) % Lymph % (Auto) % [place] % (Auto) % Eos % (Auto) % Baso % (Auto) % Immature Gran # (Auto) (0.00-0.02) K/uL Neut # (Auto) (1.4-6.5) K/uL Lymph # (Auto) (1.2-3.4) K/uL [place] # (Auto) (0.11-0.59) K/uL Eos # (Auto) (0-0.5) K/uL Baso # (Auto) (0-0.2) K/uL PT 10.7 (9.0-12.0) Seconds INR 1.0 (0.9-1.1) APTT 24.2 (21.0-31.0) Seconds PTT Ratio 0.9 Sodium (136-145) mmol/L Potassium (3.5-5.1) mmol/L Chloride (98-107) mmol/L Carbon Dioxide (21-32) mmol/L Anion Gap (3-11) BUN (7-18) mg/dl Creatinine (0.6-1.2) mg/dl Est Cr Clr Drug Dosing ml/min Est GFR ( Amer) Est GFR (Non-Af Amer) BUN/Creatinine Ratio (10-20) Glucose (70-99) mg/dl Calcium (8.5-10.1) mg/dl Total Bilirubin (0.2-1) mg/dl AST (15-37) U/L ALT (12-78) U/L Alkaline Phosphatase (45-117) U/L Troponin I (0-0.045) ng/ml Total Protein (6.4-8.2) gm/dl Albumin (3.4-5.0) gm/dl Globulin (2.5-4.0) gm/dl Albumin/Globulin Ratio (0.9-2) Lipase (73-393) U/L Urine Color Urine Appearance (Clear) Urine pH (4.5-7.5) Ur Specific [place] (1.000-1.030) Urine Protein (Negative) Urine Glucose (UA) (Negative) Urine Ketones (Negative) Urine Blood (Negative) Urine Nitrite (Negative) Urine Bilirubin (Negative) Urine Urobilinogen (Negative) Ur Leukocyte Esterase (Negative) Imaging Data Attestation: I personally reviewed and interpreted this imaging study as follows: Radiologist's Impression: CT angio chest PE protocol CT DOSE: 536.90 mGy.cm HISTORY: Dyspnea. Chest pain. CHEST PAIN, INDIGESTION, DIZZINESS TECHNIQUE: Multiaxial CT images of the chest were performed following the intravenous administration of contrast to evaluate the pulmonary arteries. Maximal intensity projection images were also obtained. A dose lowering technique was utilized adhering to the principles of ALARA. COMPARISON STUDY: None. FINDINGS: Study is positive for pulmonary emboli involving the left lower and left upper pulmonary arterial vasculature. There is a small filling defect involving the right lower lobe pulmonary arterial vasculature. Lungs are considered grossly clear. No significant mediastinal or hilar adenopathy. No evidence pneumothorax. IMPRESSION: 1. Study is positive for bilateral acute pulmonary emboli. 2. No evidence for pulmonary arterial hypertension or right heart strain on the current study CT abd pelvis IV con only CLINICAL HISTORY: 53 years-old Female presenting with LEFT SIDED ABD PAIN X 4 WEEKS, S/P HYSTERECTOMY. TECHNIQUE: Multidetector CT of the abdomen and pelvis was performed after the administration of intravenous contrast. IV contrast: 94 mL of Optiray 320. One or more dose lowering techniques were used consistent with the principles of ALARA (as low as reasonably achievable), including automatic exposure control, mA or kV adjustment to individual patient size, and/or use of iterative reconstruction. COMPARISON: 10/06/2018. CT DOSE (mGy.cm): The estimated cumulative dose is 536.90. FINDINGS: Needle Loom Setter topogram: Cholecystectomy clips noted. Lung bases: Normal heart size. No pericardial or pleural effusion. Minimal dependent changes likely atelectasis. Liver: Normal morphology. No liver lesion. Patent hepatic vasculature. Biliary: Mild biliary ductal prominence likely a reservoir effect in the post cholecystectomy state. Gallbladder surgically absent. Pancreas: Normal. Spleen: Stable hypodense lesion in the spleen with subtle peripheral nodular enhancement suggestive of a hemangioma or is likely a lymphangioma. Adrenal glands: Normal. Kidneys and ureters: Well-defined subcentimeter hypodense lesion in the right kidney likely simple cyst. No nephrolithiasis allowing for the excretion of contrast. No hydronephrosis. Ureters nondistended. Bladder: Normal. Pelvic organs: Uterus surgically absent. Dominant follicle in the left ovary. Right ovary also normal. Bowel: Limited diverticulosis of the proximal sigmoid colon without associated wall thickening or inflammatory change. The appendix is not visualized. No bowel obstruction. Peritoneal cavity: No free fluid or intraperitoneal gas. Lymph nodes: No enlarged lymph nodes in the abdomen or pelvis. Vasculature: Aorta and IVC patent and normal in caliber. Abdominal wall: Normal. Musculoskeletal: Bone island noted in the left 12th rib. Osseous structures oth erwise normal. IMPRESSION: 1. Post surgical changes of hysterectomy. No evidence of complication. No acute intra-abdominal pathology. 2. Chronic findings as above. ECG Data Attestation: I personally reviewed and interpreted this ECG as follows: Indication: chest pain Rate (beats per minute): 69 Rhythm: normal sinus Findings: no acute ischemic change and no ectopy Comparison ECG Date: from (10/06/2018) Change: no significant change Blood Pressure Blood Pressure Findings: Elevated blood pressure Blood Pressure Disposition: further management by hospitalist MDM Narrative See ED Course. Impression & Plan Bilateral pulmonary embolism Discharge Plan Visit Data *Final* Discharge Date/Time: 10/12/18 16:32 Chief Complaint: Abdominal Pain Stated Complaint: LOWER ABD PAIN,CHEST PAIN, SENT BY DR ED Provider: Fede Jaramillo ED Midlevel Provider: Devin Sharma Discharge Problem: Bilateral pulmonary embolism Patient Disposition: Admitted As Inpatient Discharge Instructions Interventions: ED Discharge Assessment Last Done: 10/12/18 16:32
[2018-10-12 13:04] LABS: Alanine Aminotransferase 31 U/L (12-78); Albumin Level 3.8 gm/dl (3.4-5.0); Aspartate Aminotransferase 21 U/L (15-37); BUN Creatinine Ratio 12.4 (10-20); Blood Urea Nitrogen 9 mg/dl (7-18); Calcium 9.3 mg/dl (8.5-10.1); Carbon Dioxide 25 mmol/L (21-32); Chloride 108 mmol/L (98-107); Creatinine Clr Calc Pharmacy 90.3 ml/min; Est GFR (African American) 116.8; Est GFR (Non-African American) 100.8; Glucose 83 mg/dl (70-99); Potassium 4.1 mmol/L (3.5-5.1); Sodium 139 mmol/L (136-145)
[2018-10-12 13:09] LABS: Albumin Globulin Ratio 1.1 (0.9-2); Alkaline Phosphatase 60 U/L (45-117); Bilirubin,Total 0.4 mg/dl (0.2-1); Globulin 3.5 gm/dl (2.5-4.0); Total Protein 7.3 gm/dl (6.4-8.2); Troponin I < 0.015 ng/ml (0-0.045)
[2018-10-12] MEDS: SODIUM CHLORIDE 0.9% 1000ML 1,000 ML IV SCH ×3 (13:23→20:12)
[2018-10-12] MEDS ORDERED: OPTIRAY 320 125ml IV PRN (13:40)
--- NOTE | 2018-10-12 13:51 | CT Scan Report ---
CT angio chest PE protocol CT DOSE: 536.90 mGy.cm HISTORY: Dyspnea. Chest pain. CHEST PAIN, INDIGESTION, DIZZINESS TECHNIQUE: Multiaxial CT images of the chest were performed following the intravenous administration of contrast to evaluate the pulmonary arteries. Maximal intensity projection images were also obtaine d. A dose lowering technique was utilized adhering to the principles of ALARA. COMPARISON STUDY: None. FINDINGS: Study is positive for pulmonary emboli involving the left lower and left upper pulmonary ar terial vasculature. There is a small filling defect involving the right lower lobe pulmonary arterial vasculature. Lungs are considered grossly clear. No significant mediastinal or hilar adenopathy. No evidence pneumothorax. IMPRESSION: 1. Study is positive for bilateral acute pulmonary emboli. 2. No evidence for pulmonary arterial hypertension or right heart strain on the current study The above report was generated using voice recognition software. It may contain grammatical, syntax or spelling errors. Electronically signed by: Reinaldo Aragon M.D. 10/12/2018 1:50 PM
--- NOTE | 2018-10-12 13:56 | CT Scan Report ---
CT abd pelvis IV con only CLINICAL HISTORY: 53 years-old Female presenting with LEFT SIDED ABD PAIN X 4 WEEKS, S/P HYSTERECTOMY . TECHNIQUE: Multidetector CT of the abdomen and pelvis was performed after the administration of intra venous contrast. IV contrast: 94 mL of Optiray 320. One or more dose lowering techniques were used co nsistent with the principles of ALARA (as low as reasonably achievable), including automatic exposure control, mA or kV adjustment to individual patient size, and/or use of iterative reconstruction. COMPARISON: 10/06/2018. CT DOSE (mGy.cm): The estimated cumulative dose is 536.90. FINDINGS: Commercial Diver topogram: Cholecystectomy clips noted. Lung bases: Normal heart size. No pericardial or pleural effusion. Minimal dependent changes likely a telectasis. Liver: Normal morphology. No liver lesion. Patent hepatic vasculature. Biliary: Mild biliary ductal prominence likely a reservoir effect in the post cholecystectomy state. Gallbladder surgically absent. Pancreas: Normal. Spleen: Stable hypodense lesion in the spleen with subtle peripheral nodular enhancement suggestive o f a hemangioma or is likely a lymphangioma. Adrenal glands: Normal. Kidneys and ureters: Well-defined subcentimeter hypodense lesion in the right kidney likely simple cy st. No nephrolithiasis allowing for the excretion of contrast. No hydronephrosis. Ureters nondistende d. Bladder: Normal. Pelvic organs: Uterus surgically absent. Dominant follicle in the left ovary. Right ovary also normal . Bowel: Limited diverticulosis of the proximal sigmoid colon without associated wall thickening or inf lammatory change. The appendix is not visualized. No bowel obstruction. Peritoneal cavity: No free fluid or intraperitoneal gas. Lymph nodes: No enlarged lymph nodes in the abdomen or pelvis. Vasculature: Aorta and IVC patent and normal in caliber. Abdominal wall: Normal. Musculoskeletal: Bone island noted in the left 12th rib. Osseous structures otherwise normal. IMPRESSION: 1. Post surgical changes of hysterectomy. No evidence of complication. No acute intra-abdominal path ology. 2. Chronic findings as above. Electronically signed by: Irineo Moise M.D. 10/12/2018 1:54 PM
[2018-10-12] MEDS ORDERED: HEPARIN SOD 5,000 UNIT/0.5 ML VIAL ONE (14:52)
[2018-10-12] MEDS ORDERED: HEPARIN 25000 UNIT/500 ML D5W IV ONE (14:52)
[2018-10-12 15:23] LABS: Partial Thromboplastin Ratio 0.9; Partial Thromboplastin Time 24.2 Seconds (21.0-31.0); Prothrombin Time 10.7 Seconds (9.0-12.0)
--- NOTE | 2018-10-12 15:50 | History & Physical Report ---
Date of Service October 12, 2018 Assessment & Plan (1) Bilateral pulmonary embolism: Likely the cause of chest pain, lightheadedness, fatigue Noted on CTA Started on heparin, will continue Hypercoag panel pending It is uncertain if there is FH of clotting issues as noted above Will start coumadin given possibility that this is a genetic issue If later it appears no genetic issue and this was a post-op complication, pt could like transition to eliquis (2) Abdominal pain: Uncertain etiology CTAP neg Recent lap procedure as above Gyne c/s pending CBC WNL UA neg PRP WNL (3) Anxiety: continue home meds (4) Depression: continue home meds (5) Fibromyalgia: continue home meds (6) Post traumatic stress disorder: continue home meds (7) Hypothyroidism: continue home meds (8) DVT prophylaxis: Heparin for DVT proph History of Present Illness Primary Care Provider: Stephanie Pickens, DO 53 y/o F with multiple complaints. Pt is 4 weeks post-op from a Robotic Assisted Total Laparoscopic Hysterectomy Bilateral Salpingectomy with DAISY. She has not felt well since that time. She has had ongoing issues with abd pain and nausea. She has been weak and fatigues easily. She was having chest pains and saw her PCP. It was thought that it was possibly GERD, so she was started on nexium without any improvement. There was concern that her Trintellix was causing nausea, so that was changed to Pristiq recently, but no improvement. Over the last few days her chest pain has gotten worse. She started to get lightheaded at times. She was able to walk on the treadmill very slowly yesterday for about 30 minutes, but felt unwell after. No SOB. She last saw her OB 2 weeks ago. She states it was thought that her sx were related to her surgery and would improve with time. She feels that she has gotten worse. She was given miralax to help with her GI issues, but also no help. She has never felt like this in the past. She states she had been getting R calf pain recently as well. Pt has no personal hx of clotting. She was on OCP for several years when she was younger and no issues. She is uncertain if her parents had hx of clotting. She states that her father had some sort of issue with his LE arteries, which is described as c/w PAD. She thought he may have had clotting with this. She states her mother was on coumadin, but she does not know why. Pt denies fever, v/c/d, LE swelling. Allergies Allergy/AdvReac Type Severity Reaction Status Date / Time Penicillins Allergy Mild Hives Verified 10/12/18 11:20 codeine Allergy Hives Verified 10/12/18 11:20 guaifenesin Allergy Hives Verified 10/12/18 11:20 morphine Allergy Hives Verified 10/12/18 11:20 pseudoephedrine Allergy Hives Verified 10/12/18 11:20 Sulfa (Sulfonamide Allergy Hives Verified 10/12/18 11:20 Antibiotics) thimerosal Allergy ulceratiions Verified 10/12/18 11:20 in eye Home Medications Home Medications Medication Instructions Recorded Confirmed Type Probiotic 1 cap PO QDD 08/21/18 10/12/18 History Trintellix 5 mg PO QAM 08/21/18 10/12/18 History cholecalciferol (vitamin D3) 1,000 units PO DAILY 08/21/18 10/12/18 History [Vitamin D3] clonazepam 0.25 mg PO DIRECTED PRN 08/21/18 10/12/18 History desvenlafaxine succinate 100 mg PO QAM 08/21/18 10/12/18 History fluticasone propionate [Flonase 2 spray INTRANASAL QAM 08/21/18 10/12/18 History Allergy Relief] levothyroxine 75 mcg PO QAM 08/21/18 10/12/18 History liothyronine [Cytomel] 5 mcg PO BID 08/21/18 10/12/18 History acetaminophen [Tylenol Extra 1,000 mg PO Q6H PRN 09/14/18 10/12/18 History Strength] ibuprofen [Motrin IB] 200 mg PO BID PRN 09/25/18 10/12/18 History promethazine [Phenergan] 25 mg SC Q6H PRN MDD 2 09/25/18 10/12/18 History esomeprazole magnesium [Nexium] 20 mg PO DAILY 10/12/18 10/12/18 History ondansetron 4 mg PO UD PRN 10/12/18 10/12/18 History polyethylene glycol 3350 [Miralax] 17 g PO DAILY 10/12/18 10/12/18 History Past Med/Surg History Medical History GERD (gastroesophageal reflux disease) (Resolved) Fibromyalgia (Chronic) Anxiety (Chronic) Depression (Chronic) Post traumatic stress disorder (Chronic) Hearing deficit (Chronic) left ear Hypothyroidism (Chronic) Sciatica (Chronic) LLE Abnormal uterine bleeding (Resolved) Surgical History History of hysterectomy (Resolved) History of tonsillectomy and adenoidectomy (Resolved) Nausea and vomiting after administration of anesthetic agent (Chronic) Hx of appendectomy (Resolved) Hx of cholecystectomy (Resolved) Hx of carpal tunnel repair (Resolved) right 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19, 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 Family History Father Family history of diabetes mellitus Family/Other Family history of diabetes mellitus Social History Preferred Language: Moldovan Communication Ability: Effective Beliefs That Will Affect Care: None Current Living Situation: Spouse Feels Safe at Home: Yes Smoking Status: Never smoker Hx Alcohol Use: No Hx Substance Use: No Review of Systems Review of Systems: Pertinent positives and negatives reviewed in HPI--all others negative Physical Exam Constitutional: WD/WN, vitals as above Eyes: normal visual le by confrontation and + anicteric sclerae Neck: normal visual inspection and trachea midline Respiratory: normal respiratory effort, lungs clear to auscultation Cardiovascular: Rate/Rhythm: regular rate and regular rhythm Gastrointestinal (Abdomen): Inspection/Auscultation: abdomen not distended Percussion/Palpation: abdomen soft; abdomen nontender Musculoskeletal: Head/Neck/Chest: normocephalic and head atraumatic negative for edema, peripheral pulses intact Skin: no rashes, warm and dry Neurologic: awake; not confused Speech / Cognition: normal speech Psychiatric: Orientation: alert and oriented x 3 Affect: + flat affect Results & Data Vital Signs (Past 12 Hours) Vital Signs Temp Pulse Pulse Resp BP BP Pulse Ox 10/12/18 15:44 82 20 101/70 98 10/12/18 14:00 73 15 122/79 99 10/12/18 13:00 668 H 23 141/90 H 98 10/12/18 11:49 66 16 139/88 99 10/12/18 11:01 36.4 C L 78 18 117/79 99 Diagnostic Findings CTAP: neg for acute CTA: b/l PE ECG Rhythm: normal sinus
[2018-10-12] MEDS ORDERED: MAGNESIUM HYDROXIDE SUSP 30 ML UDC PO PRN (17:14)
[2018-10-12] MEDS ORDERED: SODIUM CHLORIDE 0.45 % 1,000 ML IV SCH (17:14)
--- NOTE | 2018-10-12 18:23 | OB/GYN Consultation ---
Date of Consultation October 12, 2018 Assessment & Plan (1) History of hysterectomy: Patient has recent diagnosis of pulmonary embolus obviously anticoagulation per the medical team. I do not see any surgical reason that should not be done as she is 4 weeks out I did discuss with her vaginal bleeding significantly increases to let us know. Vaginal bleeding 4 weeks from hysterectomy can be normal I discussed with her. We will follow along the patient with the medical team I advised the patient I will let her primary surgeon know that she is in hospital with this problem History of Present Illness Attending Physician: Cheryle Plunkett DO Patient is 4 weeks postoperative from total laparoscopic hysterectomy with my partner Dr. Vickers The patient has been diagnosed today with bilateral pulmonary embolus and DIRECTOR SOCIAL consultation is requested Patient states for 9 days she has had a history of chest pain initially she thought this could be acid reflux however has not improved and she was diagnosed today with imaging and is currently on anticoagulation. Patient states she still has the pain With respect to her surgery she had some issues with abdominal and gas pain although this was not as bad and was somewhat improving. Patient is passing flatus patient also is having bowel movements she is having some ongoing vaginal bleeding it is slight and a pantiliner is enough to contain it. She has not had intercourse recently the patient stated that she thought she had had her cervix left in place however operative note is pretty clear that the cervix was removed. Patient's ovaries were conserved at the time of surgery and aside from the chest discomfort and gastrointestinal complaints which have been since the day of surgery she states there are no other concerns Allergies Allergy/AdvReac Type Severity Reaction Status Date / Time Penicillins Allergy Mild Hives Verified 10/12/18 11:20 codeine Allergy Hives Verified 10/12/18 11:20 guaifenesin Allergy Hives Verified 10/12/18 11:20 morphine Allergy Hives Verified 10/12/18 11:20 pseudoephedrine Allergy Hives Verified 10/12/18 11:20 Sulfa (Sulfonamide Allergy Hives Verified 10/12/18 11:20 Antibiotics) thimerosal Allergy ulceratiions Verified 10/12/18 11:20 in eye Home Medications Home Medications Medication Instructions Recorded Confirmed Type Probiotic 1 cap PO QDD 08/21/18 10/12/18 History Trintellix 5 mg PO QAM 08/21/18 10/12/18 History cholecalciferol (vitamin D3) 1,000 units PO DAILY 08/21/18 10/12/18 History [Vitamin D3] clonazepam 0.25 mg PO DIRECTED PRN 08/21/18 10/12/18 History desvenlafaxine succinate 100 mg PO QAM 08/21/18 10/12/18 History fluticasone propionate [Flonase 2 spray INTRANASAL QAM 08/21/18 10/12/18 History Allergy Relief] levothyroxine 75 mcg PO QAM 08/21/18 10/12/18 History liothyronine [Cytomel] 5 mcg PO BID 08/21/18 10/12/18 History acetaminophen [Tylenol Extra 1,000 mg PO Q6H PRN 09/14/18 10/12/18 History Strength] ibuprofen [Motrin IB] 200 mg PO BID PRN 09/25/18 10/12/18 History promethazine [Phenergan] 25 mg [place] Q6H PRN MDD 2 09/25/18 10/12/18 History esomeprazole magnesium [Nexium] 20 mg PO DAILY 10/12/18 10/12/18 History ondansetron 4 mg PO UD PRN 10/12/18 10/12/18 History polyethylene glycol 3350 [Miralax] 17 g PO DAILY 10/12/18 10/12/18 History Patient History Medical History GERD (gastroesophageal reflux disease) (Resolved) Fibromyalgia (Chronic) Anxiety (Chronic) Depression (Chronic) Post traumatic stress disorder (Chronic) Hearing deficit (Chronic) left ear Hypothyroidism (Chronic) Sciatica (Chronic) LLE Abnormal uterine bleeding (Resolved) Surgical History History of hysterectomy (Resolved) History of tonsillectomy and adenoidectomy (Resolved) Nausea and vomiting after administration of anesthetic agent (Chronic) Hx of appendectomy (Resolved) Hx of cholecystectomy (Resolved) Hx of carpal tunnel repair (Resolved) right 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19, 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 Family History Father Family history of diabetes mellitus Family/Other Family history of diabetes mellitus Social History Preferred Language: Honduran Communication Ability: Effective Medical Field Representative Required: No Beliefs That Will Affect Care: None Current Living Situation: Spouse Other Information That Helps Us Care for You: No Feels Safe at Home: Yes Safety Concerns: Feels Safe At This Time Smoking Status: Never smoker Do You Dip or Chew Tobacco: No Second Hand Exposure: No Tobacco Cessation Education Requested by Patient: No Hx Alcohol Use: No Hx Substance Use: No Physical Exam Constitutional: WD/WN, vitals as above Results & Data Vital Signs (Past 12 Hours) Vital Signs Temp Pulse Pulse Resp BP BP Pulse Ox 10/12/18 17:14 99.3 F 75 18 111/74 98 10/12/18 16:32 73 20 118/80 97 10/12/18 15:44 82 20 101/70 98 10/12/18 14:00 73 15 122/79 99 10/12/18 13:00 668 H 23 141/90 H 98 10/12/18 11:49 66 16 139/88 99 10/12/18 11:01 97.5 F L 78 18 117/79 99
[2018-10-12] MEDS: WARFARIN SOD 10 MG TAB PO SCH (18:24)
[2018-10-12] MEDS: LACTOBACILLUS ACIDOPHILUS (FLORANEX) TAB PO SCH (18:25)
[2018-10-12] MEDS: Heparin Adult STANDARD Wt-Based Dextrose 5% 25,000 units/500 mL IV SCH (19:00)
[2018-10-12] MEDS ORDERED: Nursing to Pharmacy Communication ONE (19:06)
[2018-10-12] MEDS: ACETAMINOPHEN 500 MG TAB PO PRN (19:06)
[2018-10-12] MEDS: KETOROLAC 30 MG/ML VIAL IV PRN (19:07)
[2018-10-12] MEDS: clonazePAM 0.5 MG TAB PO PRN (20:06)
[2018-10-12] MEDS: IBUPROFEN 200 MG TAB PO PRN (20:09)
[2018-10-12] MEDS: TRAZODONE HCL 50 MG TAB PO SCH (20:11)
[2018-10-12 22:17] LABS: Partial Thromboplastin Ratio 4.7
[2018-10-12 22:34] LABS: Partial Thromboplastin Time 127.7 Seconds (21.0-31.0)
[2018-10-12] MEDS ORDERED: Heparin IV Standard *NO* Bolus IV ONE (22:37)
[2018-10-13] MEDS: ONDANSETRON 4 MG OD TAB PO PRN ×2 (02:04→07:35)
[2018-10-13] MEDS: KETOROLAC 30 MG/ML VIAL IV PRN ×4 (02:04→20:12)
[2018-10-13] MEDS: LEVOTHYROXINE SODIUM 75 MCG TABLET PO SCH (06:09)
[2018-10-13 06:51] LABS: INR 1.2 (0.9-1.1); Prothrombin Time 11.7 Seconds (9.0-12.0)
[2018-10-13 07:01] LABS: Partial Thromboplastin Ratio 2.8
[2018-10-13 07:09] LABS: Partial Thromboplastin Time 77.2 Seconds (21.0-31.0)
[2018-10-13] MEDS: LIOTHYRONINE SODIUM 5 MCG TAB PO SCH ×2 (07:37→15:27)
[2018-10-13] MEDS: FLUTICASONE PROPIONATE NA SPR 16 GM BTL SCH (07:37)
[2018-10-13] MEDS: CHOLECALCIFEROL 1,000 UNITS TAB PO SCH (07:37)
[2018-10-13] MEDS: DESVENLAFAXINE SUCCINATE PO SCH (07:37)
[2018-10-13] MEDS: SODIUM CHLORIDE 0.9% 1000ML 1,000 ML IV SCH ×2 (07:41→20:12)
[2018-10-13] MEDS: POLYETHYLENE (MIRALAX) 17 GM PACK PO SCH (08:21)
[2018-10-13] MEDS ORDERED: DESVENLAFAXINE SUCCINATE 100 MG PO SCH (09:00)
[2018-10-13] MEDS: PROMETHAZINE HCL 6.25 MG in SODIUM CHLORIDE 0.9% 50 ML IV PRN (10:06)
--- NOTE | 2018-10-13 10:30 | Hospitalist Progress Note ---
Date of Service October 13, 2018 Assessment & Plan (1) Bilateral pulmonary embolism: Likely the cause of chest pain, lightheadedness, fatigue Noted on CTA Started on heparin, will continue Hypercoag panel pending It is uncertain if there is FH of clotting issues as noted above Previous provider started coumadin given possibility that this is a genetic issue. Currently awaiting workup but doubt genetic issue, as mother had warfarin decades ago, before the use of NOAC's May consider transition to eliquis once genetic issue is ruled out. Will continue coumadin 10 mg FOR second day in a row (2) Abdominal pain: Uncertain etiology CTAP neg Recent lap procedure as above Gyne c/s pending CBC WNL UA neg PRP WNL Appears to be stable. (3) Anxiety: continue home meds (4) Depression: continue home meds (5) Fibromyalgia: continue home meds (6) Post traumatic stress disorder: continue home meds (7) Hypothyroidism: continue home meds (8) DVT prophylaxis: Heparin for DVT proph Spent 35 minutes in management of patient. Subjective Patient had multiple complaints. She continues to feel nauseous, and is having a non productive cough She also feels lightheaded. Review of Systems Review of Systems: All systems reviewed & are unremarkable except as noted in HPI & below Physical Exam Physical Exam: Constitutional: WD/WN, vitals as above Eyes: normal visual le by confrontation and + anicteric sclerae Neck: normal visual inspection and trachea midline Respiratory: normal respiratory effort, lungs clear to auscultation Cardiovascular: Rate/Rhythm: regular rate and regular rhythm Gastrointestinal (Abdomen): Inspection/Auscultation: abdomen not distended Percussion/Palpation: abdomen soft; abdomen nontender Musculoskeletal: Head/Neck/Chest: normocephalic and head atraumatic negative f or edema, peripheral pulses intact Skin: no rashes, warm and dry Neurologic: awake; not confused Speech / Cognition: normal speech Psychiatric: Orientation: alert and oriented x 3 Affect: + flat affect Results & Data Vital Signs (Past 12 Hours) Vital Signs Temp Pulse Pulse Resp BP Pulse Ox 10/13/18 07:04 36.6 C 67 16 104/67 97 10/13/18 03:05 36.6 C 70 16 91/55 L 98 10/12/18 23:09 68 10/12/18 22:54 36.7 C 75 16 93/54 L 95
[2018-10-13] MEDS: ACETAMINOPHEN 500 MG TAB PO PRN ×2 (10:37→19:23)
[2018-10-13] MEDS ORDERED: BISACODYL 10 MG SUPP PR STA ×2 (12:36→14:58)
[2018-10-13 13:46] LABS: Partial Thromboplastin Time 54.1 Seconds (21.0-31.0)
[2018-10-13] MEDS: ONDANSETRON INJ 2 MG/ML 2 ML VIAL IV PRN (15:27)
[2018-10-13] MEDS: WARFARIN SOD 10 MG TAB PO SCH (15:29)
[2018-10-13] MEDS: LACTOBACILLUS ACIDOPHILUS (FLORANEX) TAB PO SCH (16:40)
[2018-10-13] MEDS ORDERED: MECLIZINE HCL 25 MG TAB PO STA (17:22)
[2018-10-13] MEDS: SIMETHICONE 80 MG CHEW PO PRN (19:24)
[2018-10-13] MEDS: clonazePAM 0.5 MG TAB PO PRN (20:12)
[2018-10-13] MEDS: Heparin Adult STANDARD Wt-Based Dextrose 5% 25,000 units/500 mL IV SCH (20:13)
[2018-10-13] MEDS: TRAZODONE HCL 50 MG TAB PO SCH (20:14)
[2018-10-13] MEDS: IBUPROFEN 200 MG TAB PO PRN (21:03)
[2018-10-14] MEDS: KETOROLAC 30 MG/ML VIAL IV PRN ×2 (05:45→11:42)
[2018-10-14] MEDS: LEVOTHYROXINE SODIUM 75 MCG TABLET PO SCH (05:46)
[2018-10-14 06:40] LABS: INR 1.9 (0.9-1.1); Partial Thromboplastin Ratio 2.3; Prothrombin Time 18.8 Seconds (9.0-12.0)
[2018-10-14] MEDS: ONDANSETRON 4 MG OD TAB PO PRN ×2 (06:41→12:49)
[2018-10-14] MEDS: MECLIZINE 12.5 MG TAB PO PRN ×2 (06:41→14:49)
[2018-10-14] MEDS: ACETAMINOPHEN 325 MG TAB PO PRN (07:58)
[2018-10-14] MEDS: FLUTICASONE PROPIONATE NA SPR 16 GM BTL SCH (07:59)
[2018-10-14] MEDS: POLYETHYLENE (MIRALAX) 17 GM PACK PO SCH (07:59)
[2018-10-14] MEDS: DESVENLAFAXINE SUCCINATE PO SCH (08:01)
[2018-10-14] MEDS: LIOTHYRONINE SODIUM 5 MCG TAB PO SCH ×2 (08:02→14:53)
[2018-10-14] MEDS: CHOLECALCIFEROL 1,000 UNITS TAB PO SCH (08:02)
[2018-10-14] MEDS: SIMETHICONE 80 MG CHEW PO PRN (08:02)
[2018-10-14] MEDS: SODIUM CHLORIDE 0.9% 1000ML 1,000 ML IV SCH ×2 (08:04→21:00)
[2018-10-14] MEDS: TRAMADOL HCL 50 MG TABLET PO SCH ×2 (14:47→20:12)
[2018-10-14] MEDS ORDERED: OXYCODONE HCL IR 5 MG TAB (IMMEDIATE RELEASE) PO STA (15:46)
[2018-10-14] MEDS: WARFARIN SOD 5 MG TAB PO SCH (16:10)
[2018-10-14] MEDS: LACTOBACILLUS ACIDOPHILUS (FLORANEX) TAB PO SCH (16:11)
[2018-10-14] MEDS: TRAZODONE HCL 50 MG TAB PO SCH (20:12)
[2018-10-14] MEDS: clonazePAM 0.5 MG TAB PO PRN (20:13)
--- NOTE | 2018-10-14 21:32 | Hospitalist Progress Note ---
Date of Service October 14, 2018 Assessment & Plan (1) Bilateral pulmonary embolism: Patient presents with bilateral P/E which likely is cause of her symptoms. However she also has fibromyalgia hich compliates the presentation. She also is currently on coumadin and awaiting INR to be therapuetic. Her EKG, tele and testing have been negative as well as her vital signs have nikki normal. No sign of right heart strain. Will place patient on oxycodone and hold NSAIDs due to warfarin. Noted on CTA Started on heparin, will continue Hypercoag panel pending It is uncertain if there is FH of clotting issues as noted above Previous provider started coumadin given possibility that this is a genetic issue. Currently awaiting workup but doubt genetic issue, as mother had warfarin decades ago, before the use of NOAC's May consider transition to eliquis once genetic issue is ruled out. Will continue coumadin 5 mg after 2 days of 10 mg of coumadin. (2) Abdominal pain: Uncertain etiology CTAP neg Recent lap procedure as above Gyne c/s pending CBC WNL UA neg PRP WNL Appears to be stable. (3) Anxiety: continue home meds (4) Depression: continue home meds (5) Fibromyalgia: continue home meds (6) Post traumatic stress disorder: continue home meds (7) Hypothyroidism: continue home meds (8) DVT prophylaxis: Heparin for DVT proph Spent 45 minutes in management of patient. Subjective This is a 53 yo female whos has history of fibromyalgia, anxiety and depression. Patient states she has been in pain for past 2-3 hours. She reports toradol, tyleol controls her pain. Her pain is pressure like and midsternal. Ocurs at rest and last for hours. ain is worse with deep breathing but is not positional. She reports no change lying down or sitting up. Patient also reports having some dizziness when she ambulates. Nurse states patient is anxious throughout the day. Patient does not want benzos. Review of Systems Review of Systems: All systems reviewed & are unremarkable except as noted in HPI & below Physical Exam Physical Exam: Constitutional: WD/WN, vitals as above Eyes: normal visual le by confrontation and + anicteric sclerae Neck: normal visual inspection and trachea midline Respiratory: normal respiratory effort, lungs clear to auscultation Cardiovascular: Rate/Rhythm: regular rate and regular rhythm Gastrointestinal (Abdomen): Inspection/Auscultation: abdomen not distended Percussion/Palpation: abdomen soft; abdomen nontender Musculoskeletal: Head/Neck/Chest: normocephalic and head atraumatic negative for edema, peripheral pulses intact Skin: no rashes, warm and dry Neurologic: awake; not confused Speech / Cognition: normal speech Psychiatric: Orientation: alert and oriented x 3 Affect: + flat affect Results & Data Vital Signs (Past 12 Hours) Vital Signs Temp Pulse Pulse Resp BP BP Pulse Ox 10/14/18 19:56 36.7 C 70 16 112/72 96 10/14/18 15:54 61 10/14/18 15:30 36.9 C 63 18 137/82 98 10/14/18 10:52 36.5 C 59 L 16 112/74 97
[2018-10-15] MEDS: TRAMADOL HCL 50 MG TABLET PO SCH ×4 (02:10→20:12)
[2018-10-15] MEDS: Heparin Adult STANDARD Wt-Based Dextrose 5% 25,000 units/500 mL IV SCH (05:30)
[2018-10-15] MEDS: LEVOTHYROXINE SODIUM 75 MCG TABLET PO SCH (05:31)
[2018-10-15] MEDS: ACETAMINOPHEN 500 MG TAB PO PRN ×3 (07:36→21:12)
[2018-10-15] MEDS: ONDANSETRON INJ 2 MG/ML 2 ML VIAL IV PRN ×3 (07:36→21:13)
[2018-10-15] MEDS: FLUTICASONE PROPIONATE NA SPR 16 GM BTL SCH (08:01)
[2018-10-15] MEDS: POLYETHYLENE (MIRALAX) 17 GM PACK PO SCH (08:01)
[2018-10-15] MEDS: DESVENLAFAXINE SUCCINATE PO SCH (08:02)
[2018-10-15] MEDS: CHOLECALCIFEROL 1,000 UNITS TAB PO SCH (08:02)
[2018-10-15 08:21] LABS: INR 2.9 (0.9-1.1); Partial Thromboplastin Ratio 2.6; Prothrombin Time 27.3 Seconds (9.0-12.0)
[2018-10-15 08:24] LABS: Partial Thromboplastin Time 71.3 Seconds (21.0-31.0)
[2018-10-15] MEDS ORDERED: Nursing to Pharmacy Communication ONE (08:25)
[2018-10-15] MEDS: LIOTHYRONINE SODIUM 5 MCG TAB PO SCH ×2 (09:23→15:29)
[2018-10-15] MEDS: SODIUM CHLORIDE 0.9% 1000ML 1,000 ML IV SCH ×2 (09:32→21:09)
[2018-10-15] MEDS: PROMETHAZINE HCL 6.25 MG in SODIUM CHLORIDE 0.9% 50 ML IV PRN (09:51)
--- NOTE | 2018-10-15 10:45 | CT Scan Report ---
CT OF THE HEAD WITHOUT CONTRAST CLINICAL HISTORY: 01/26 headache, on heparin gtt COMPARISON STUDY: No previous studies for comparison. CT DOSE: 537.48 mGy.cm TECHNIQUE: Helical axial images of the head were obtained without IV contrast. Automated exposure con trol was utilized for the study. A dose lowering technique was utilized adhering to the principles o f ALARA. FINDINGS: No acute intracranial hemorrhage, midline shift or mass effect is present. Ventricular syst em is normal. The basilar cisterns are patent. There are no extra-axial collections. Hopkins-white diffe rentiation is maintained. There are no findings to suggest acute dural sinus thrombosis or acute terr itorial infarct. There are no significant calvarial abnormalities. Visualized portions of the sinuses and mastoid air cells are clear. IMPRESSION: No acute intracranial findings. Electronically signed by: Rogelio Adams M.D. 10/15/2018 10:44 AM
[2018-10-15] MEDS ORDERED: OXYCODONE HCL IR 5 MG TAB (IMMEDIATE RELEASE) PO STA (11:04)
--- NOTE | 2018-10-15 13:20 | Hospitalist Progress Note ---
Date of Service October 15, 2018 Assessment & Plan (1) Bilateral pulmonary embolism: Patient presents with postprocedural/postoperative bilateral pulmonary emboli, possibly a complication of care She also is currently on coumadin, INR was 2.9 today - will need to bridge through tomorrow with heparin if still therapeutic in the morning Noted on CTA, no sign of right heart strain. Continue tramadol for pain Started on heparin, will continue Hypercoag panel pending It is uncertain if there is FH of clotting issues as noted above Previous provider started coumadin given possibility that this is a genetic issue. Hypercoag panel pending May consider transition to eliquis once genetic issue is ruled out. (2) Abdominal pain: Uncertain etiology CTAP neg Recent lap procedure as above Gyne consulted - no further work up at this time CBC WNL UA neg PRP WNL (3) Anxiety: continue home meds (4) Depression: continue home meds (5) Fibromyalgia: continue home meds (6) Post traumatic stress disorder: continue home meds (7) Hypothyroidism: continue home meds (8) Headache: CT head negative, no focal findings on exam Unclear etiology Given oxycodone 5 mg po x1 with relief (9) DVT prophylaxis: Heparin gtt Subjective Ms. Aguilar is having an 8/10 frontal headache this morning with nausea. She is not usually headache prone. No visual changes. She denies further chest boogie Review of Systems Review of Systems: All systems reviewed & are unremarkable except as noted in HPI & below Physical Exam Physical Exam: General: no distress Eyes: normal inspection, PERLL Respiratory: chest non tender, clear to auscultation, normal breath sounds, no respiratory distress, no accessory muscle use Cardiac: regular rate and rhythm, no rub or gallop, no murmur, no edema, no jvd GI/: active bowel sounds, no abd pain or tenderness, soft, non distended Extremities: normal range of motion, normal strength, non tender Neuro/Psych: alert and oriented x 3, normal mood and affect, CN II-XI intact Skin: normal color, dry Results & Data Vital Signs (Past 12 Hours) Vital Signs Temp Pulse Pulse Resp BP Pulse Ox 10/15/18 11:17 36.8 C 66 18 113/74 97 10/15/18 07:40 64 10/15/18 07:19 37.1 C 63 20 108/76 99 10/15/18 03:30 36.6 C 61 16 96/60 L 98
[2018-10-15 14:35] LABS: Partial Thromboplastin Ratio 2.4
[2018-10-15 14:43] LABS: Partial Thromboplastin Time 65.6 Seconds (21.0-31.0)
[2018-10-15] MEDS: WARFARIN SOD 5 MG TAB PO SCH (15:29)
[2018-10-15] MEDS: LACTOBACILLUS ACIDOPHILUS (FLORANEX) TAB PO SCH (15:30)
[2018-10-15] MEDS: TRAZODONE HCL 50 MG TAB PO SCH (20:13)
[2018-10-15] MEDS: clonazePAM 0.5 MG TAB PO PRN (20:13)
--- OUTSIDE RECORDS SUMMARY | 2018-10-15 22:10 | External Medical Summary | Continuity of Care Document ---
:1965 Author Name Belem Nails, Provider Address Unavailable Unavailable , Care Team Providers Name Role Phone Isaura ALICEA, Cheryle Unavailable [email or web address] Kristofer Nails, Manjula Unavailable [email or web address] Tete Robledo, Brandon Unavailable [email or web address] Sneha Nails, Arin [place] Unavailable [email or web address] CHEYENNE HARO Unavailable Unavailable Unavailable Unavailable Unavailable Problems Myalgia (729.1) (M79.10) Paresthesia (782.0) (R20.2) Fibromyalgia (729.1) (M79.7) Vitamin D deficiency (268.9) (E55.9) Hypothyroidism (244.9) (E03.9) High risk medication use (V58.69) (Z79.899) Anxiety (300.00) (F41.9) Otosclerosis (387.9) (H80.90) Encounter for routine gynecological exam ination with Papanicolaou smear of cervix (V72.31) (Z01.419) Chronic interstitial cystitis (595.1) (N30.10) Allergic rhinitis (477.9) (J30.9) H/O food allergy (V15.05) (Z91.018) H/O allergy to penicillin (V14.0) (Z88.0) Perimenopausal menorrhagia (627.0) (N92.4) Conductive hearing loss of left ear with unrestricted hearing of right ear (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 Refills: 0 clonazePAM 0.5 MG Oral Tablet; take 0.5 tablet at noon, 1 tablet at bedtime, and 1 tablet as needed Start: 12-Jan-2017 Refills: 0 traZODone HCl - 50 MG Oral Tablet; TAKE TABLET 1/4 tablet a t bedtime Refills: 0 Desvenlafaxine ER 100 MG Oral Tablet Ext ended Release 24 Hour; Take 1 tablet daily Refills: 0 Calcium TABS; TAKE 1 TABLET Daily 750mg Refills: 0 Magnesium TABS; TAKE 400 MG Daily Refills: 0 Fish Oil CAPS; TAKE 2000 MG Daily Refills: 0 Glucosamine Chondroitin Complx TABS Refills: 0 Fluticasone Propionate 50 MCG/ACT Nasal Suspension; instill 2 sprays into each nostril once daily DEANNE Delarosa Start: 10-Jul-2018 Quantity: 16 Refills: 3 Levothyroxine Sodium 75 MCG Oral Tablet; TAKE 1 TABLET Daily Take in morning with water 30 minutes before eating. Jaqui Miner Start: Quantity: 90 Refills: 3 Trintellix 5 MG Oral Tablet; TAKE 1 TABLET IN THE AM Refills: 0 Vitamin D 1000 UNIT Oral Tablet; TAKE 1 TABLET DAILY. Start: 23-Oct-2017 Refills: 0 Phenadoz 25 MG Rectal Suppository; INSER T 1 SUPPOSITORY RECTALLY EVERY 12 HOURS NEEDED FOR NAUSEA AND VOMITING. Jaqui Hoover Start: 26-Sep-2018 Quantity: 20 Refills: 0 Liothyronine Sodium 5 MCG Oral Tablet; T CARLINE TABLET 2 TABLETS IN AM 1/2 TABLET PM Jaqui Miner Start: 23-Oct-2017 Quantity: 150 Refills: 3 Probiotic Oral Capsule; USE DIRECTED. Start: 08-Mar-2017 Refills: 0 Procedures C Diff Complete - 2YR OR GRTR Date: 26-Sep-2018 History of appendectomy Status: Complete d History of cholecystectomy Status: Compl eted History of carpal tunnel surgery Status: Completed History of Laparoscopy With Total Hysterectomy Status: Completed Immunizations Immunizations not documented Family History Mother Family history of alcoholism (V17.0) (Z81.1) Status: Active Family history of drug abuse (V61.41) (Z63.72) Status: Activ e Family history of Anxiety (300.00) (F41.9) Status: Active Family history of cerebrovascular accident (CVA) (V17.1) (Z8 2.3) Status: Active Father Family history of alcoholism (V17.0) (Z81.1) Status: Active Family history of drug abuse (V61.41) (Z63.72) Status: Activ e Family history of cardiac disorder (V17.49) (Z82.49) Status: Active Family history of diabetes mellitus (V18.0) (Z83.3) Status: Active Family history of hyperlipidemia (V18.19) (Z83.438) Status: Active Family history of hypertension (V17.49) (Z82.49) Status: Act skinny Grandmother Family history of Other specified forms of hearing loss (389 .8) Status: Active (H91.8X9) FHx: cancer (V16.9) (Z80.9) Status: Active Unknown Family Member No family history of bleeding disorder Status: Active C omments: Family History (V49.89) (Z78.9) Social History - Smoking Status Never smoker Plan of Treatment Planned Encounters Appointment; Brandon Allen Au.D.|[facility] Start: 04-Dec-2018 8:00 Request Planned Observations Planned Goals not documented Results CBC No Diff Laboratory: [facility] Laboratory [address] [facility] [address] tel: 26-Sep-2018 14:07 WBC 7.16 K/uL Range: 4.8-10.8 K/u L RBC 4.44 {M/uL} Range: 4.2-5.4 M/uL HEMOGLOBIN 12.8 g/dL Range: 12.0-16.0 g /dL HEMATOCRIT 38.8 % Range: 37-47 % MCV 87.4 fL Range: 80-100 fL MCH 28.8 pg Range: 25-34 pg MEAN CORPUSCULAR HGB CONC 33.0 g/dL Rang e: 32-36 g/dL RED CELL DISTRIBUTION WIDTH SD 42.6 fL R razia: 36.4-46.3 fL RED CELL DISTRIBUTION WIDTH CV 13.2 % Ra nge: 11.5-14.5 % PLATELET COUNT 264 K/uL Range: 130-400 K/uL MEAN PLATELET VOLUME 10.4 fL Range: 7.4 -10.4 fL Cdiff Toxin B Gene (2yr Laboratory: [facility] Laboratory [address] Comments: Source of or >) Allyson [place] [address] Specime n: Stool tel: 27-Sep-2018 8:28 Cdiff Toxin B Gene (2yr or >) Negative R razia: Neg Cdiff Gene Vital Signs 02-Oct-2018 11:26 Systolic 122 mm[Hg] Diastolic 70 mm[Hg] Weight 136.1 lb Height 65.5 in BSA Calculated 1.69 m2 BMI Calculated 22.3 kg/m2 Temperature 98 f 26-Sep-2018 13:38 Systolic 112 mm[Hg] Diastolic 72 mm[Hg] Weight 141 lb Height 65.5 in BSA Calculated 1.71 m2 BMI Calculated 23.11 kg/m2 Temperature 97.9 f Encounters Appointment; Cheryle Vickers M.D. 02-Oct-2018 11:30 Encounter Diagnosis: Problem not documented Appointment; Arin Hoover M.D. 26-Sep-2018 13:45 Encounter Diagnosis: Problem not documented Appointment; Cheryle Vickers M.D. 14-Sep-2018 10:30 Encounter Diagnosis: Problem not documented Appointment; Brandon Allen Au.D.|[facility] 03-Sep-2018 8:00 Encounter Diagnosis: Problem not documented Appointment; Cheryle Vickers M.D. 28-Aug-2018 10:45 Encounter Diagnosis: Problem not documented Appointment; Cheryle Vickers M.D. 02-Aug-2018 10:00 Encounter Diagnosis: Problem not documented Appointment; OBGYN SC1, Ultrasound 27-Jul-2018 11:15 Encounter Diagnosis: Problem not documented Appointment; Nataliya Puente M.D. 17-Jul-2018 8:40 Encounter Diagnosis: Problem not documented Appointment; Cheryle Vickers M.D. 11-Jul-2018 11:30 Encounter Diagnosis: Problem not documented Appointment; Cheryle Delarosa PA-C 30-May-2018 8:20 Encounter Diagnosis: Problem not documented Appointment; Brandon Allen Au.D.|[facility] 30-May-2018 8:00 Encounter Diagnosis: Problem not documented Appointment; Brandon Allen Au.D.|[facility] 09-May-2018 8:00 Encounter Diagnosis: Problem not documented Appointment; Brandon Allen Au.D.|[facility] 26-Apr-2018 7:40 Encounter Diagnosis: Problem not documented Appointment; Manjula Miner M.D. 23-Apr-2018 9:10 Encounter Diagnosis: Problem not documented Appointment; Cheryle Delarosa PA-C 10-Apr-2018 9:00 Encounter Diagnosis: Problem not documented Appointment; Brandon Allen Au.D.|[facility] 03-Apr-2018 7:40 Encounter Diagnosis: Problem not documented Appointment; Cheryle Delarosa PA-C 13-Mar-2018 9:20 Encounter Diagnosis: Problem not documented Appointment; Brandon Allen Au.D.|[facility] 13-Mar-2018 9:00 Encounter Diagnosis: Problem not documented Appointment; Manjula Miner M.D. 23-Oct-2017 9:10 Encounter Diagnosis: Problem not documented Appointment; Manjula Miner M.D. 21-Jun-2017 13:10 Encounter Diagnosis: Problem not documented Appointment; Manjula Miner M.D. 08-May-2017 14:30 Encounter Diagnosis: Problem not documented Appointment; Manjula Miner M.D. 08-Mar-2017 10:30 Encounter Diagnosis: Problem not documented Appointment; Brandon Allen Au.D.|[facility] 04-Dec-2018 8:00 Encounter Diagnosis: Problem not documented"
[2018-10-16] MEDS: TRAMADOL HCL 50 MG TABLET PO SCH ×3 (03:29→13:55)
[2018-10-16] MEDS: LEVOTHYROXINE SODIUM 75 MCG TABLET PO SCH (06:08)
[2018-10-16 07:02] LABS: Hematocrit (blood only) 33.8 % (37-47); Hemoglobin 11.4 g/dL (12.0-16.0); Mean Corpuscular Hgb Conc 33.7 g/dL (32-36); Mean Platelet Volume 9.9 fL (7.4-10.4); Platelet Count 145 K/uL (130-400); RDW Coefficient of Variation 13.5 % (11.5-14.5); RDW Standard Deviation 42.9 fL (36.4-46.3); Red Blood Count 3.93 M/uL (4.2-5.4); White Blood Count 5.62 K/uL (4.8-10.8)
[2018-10-16 07:21] LABS: INR 3.1 (0.9-1.1); Partial Thromboplastin Ratio 2.6; Prothrombin Time 29.5 Seconds (9.0-12.0)
[2018-10-16 07:24] LABS: Partial Thromboplastin Time 69.5 Seconds (21.0-31.0)
[2018-10-16 07:32] LABS: BUN Creatinine Ratio 13.4 (10-20); Creatinine Clr Calc Pharmacy 98.9 ml/min; Est GFR (African American) 120.4; Est GFR (Non-African American) 103.9; Potassium 3.8 mmol/L (3.5-5.1)
[2018-10-16] MEDS: ACETAMINOPHEN 325 MG TAB PO PRN (07:45)
[2018-10-16] MEDS: LIOTHYRONINE SODIUM 5 MCG TAB PO SCH ×2 (07:46→15:22)
[2018-10-16] MEDS: CHOLECALCIFEROL 1,000 UNITS TAB PO SCH (07:46)
[2018-10-16] MEDS: FLUTICASONE PROPIONATE NA SPR 16 GM BTL SCH (07:46)
[2018-10-16] MEDS: DESVENLAFAXINE SUCCINATE PO SCH (07:46)
[2018-10-16] MEDS: ONDANSETRON 4 MG OD TAB PO PRN (07:52)
[2018-10-16] MEDS ORDERED: KETOROLAC TROMETHAMINE 15 MG/ML VIAL IV ONE (10:52)
[2018-10-16 14:42] LABS: Partial Thromboplastin Time 55.2 Seconds (21.0-31.0)
--- NOTE | 2018-10-16 15:09 | Ultrasound Report ---
US pelvic limited HISTORY: 53 years-old Female assess for fluid collection/bleed acute pelvic pain with recent hystere ctomy. COMPARISON: CT abdomen and pelvis 10/12/2018 TECHNIQUE: Limited pelvic ultrasound was obtained assessing for free fluid. FINDINGS/IMPRESSION: No free fluid or hemoperitoneum identified. The above report was generated using voice recognition software. It may contain grammatical, syntax o r spelling errors. Electronically signed by: Damien Rosas M.D. 10/16/2018 3:08 PM
[2018-10-16] MEDS: ONDANSETRON INJ 2 MG/ML 2 ML VIAL IV PRN (15:25)
[2018-10-16] MEDS ORDERED: WARFARIN SOD 3 MG TAB PO SCH (16:00)
[2018-10-16] MEDS: LACTOBACILLUS ACIDOPHILUS (FLORANEX) TAB PO SCH (16:12)
--- NOTE | 2018-10-16 16:21 | Discharge Summary ---
Date of Service October 16, 2018 Admission HPI Per Admitting Provider 53 y/o F with multiple complaints. Pt is 4 weeks post-op from a Robotic Assisted Total Laparoscopic Hysterectomy Bilateral Salpingectomy with DAISY. She has not felt well since that time. She has had ongoing issues with abd pain and nausea. She has been weak and fatigues easily. She was having chest pains and saw her PCP. It was thought that it was possibly GERD, so she was started on nexium without any improvement. There was concern that her Trintellix was causing nausea, so that was changed to Pristiq recently, but no improvement. Over the last few days her chest pain has gotten worse. She started to get lightheaded at times. She was able to walk on the treadmill very slowly yesterday for about 30 minutes, but felt unwell after. No SOB. She last saw her OB 2 weeks ago. She states it was thought that her sx were related to her surgery and would improve with time. She feels that she has gotten worse. She was given miralax to help with her GI issues, but also no help. She has never felt like this in the past. She states she had been getting R calf pain recently as well. Pt has no personal hx of clotting. She was on OCP for several years when she was younger and no issues. She is uncertain if her parents had hx of clotting. She states that her father had some sort of issue with his LE arteries, which is described as c/w PAD. She thought he may have had clotting with this. She states her mother was on coumadin, but she does not know why. Pt denies fever, v/c/d, LE swelling. Principal Diagnosis Pulmonary embolism Discharge Exam Constitutional WD/WN, vitals as above Respiratory normal respiratory effort, lungs clear to auscultation Cardiovascular RRR, no murmur, no edema Gastrointestinal (Abdomen) normal bowel sounds, soft, nontender, no hepatosplenomegaly Musculoskeletal no cyanosis or clubbing, extremities motor strength 5/5 Skin no rashes, warm and dry Neurologic moves all extremities and awake Psychiatric A+Ox3, euthymic affect Discharge Data Allergies Allergy/AdvReac Type Severity Reaction Status Date / Time Penicillins Allergy Mild Hives Verified 10/12/18 11:20 codeine Allergy Hives Verified 10/12/18 11:20 guaifenesin Allergy Hives Verified 10/12/18 11:20 morphine Allergy Hives Verified 10/12/18 11:20 pseudoephedrine Allergy Hives Verified 10/12/18 11:20 Sulfa (Sulfonamide Allergy Hives Verified 10/12/18 11:20 Antibiotics) thimerosal Allergy ulceratiions Verified 10/12/18 11:20 in eye Consultations 10/12/18 14:34 ED Decision to Admit Stat 10/12/18 17:14 Consult Case Management - Discharge Planning Routine Consult Gynecology Stat Ordered Studies 10/12/18 12:21 CT abd pelvis IV con only Stat CT angio chest PE protocol Stat 10/15/18 09:50 CT head/brain wo con Stat 10/16/18 10:50 US pelvic limited Routine Hospital Course (1) Bilateral pulmonary embolism: Patient presents with postprocedural/postoperative bilateral pulmonary emboli, possibly a complication of care She also is currently on Coumadin, INR was 3.1 today - heparin has been discontinued as today is day five of bridging with two consecutive days of therapeutic INRs. Will decrease Coumadin to 3 mg daily from 5 to avoid becoming supratherapeutic and have her check it tomorrow and then she will see the Coumadin clinic on Noted on CTA, no sign of right heart strain. Hypercoag panel pending Started Coumadin given possibility that this is a genetic issue as patient's father had history of blood clots and her mother was on Coumadin for unknown reasons, however given surgery within the past month this is likely post op complication. Hypercoag panel pending May consider transition to Eliquis once genetic issue is ruled out. Patient continues to complain of substernal chest pain that has been unremitting since before her admission. Pain is not positional, it is worse with inspiration. Troponins were negative on 10/06 and 10/12. Discussed continuing 1g Tylenol q8h with a short course of continued tramadol. Checked pdmp, she did have two short hydrocodone - acetaminophen scripts (3 and 5 days) filled since her surgery on 09/15 for oxycodone but nothing filled in the last two weeks. Patient has baseline dizziness at times. Orthostatic blood pressure was negative. (2) Abdominal pain: Uncertain etiology CTAP neg Recent lap procedure as above Gyne consulted - no further work up at this time CBC with drop in Hgb from 14 to 11 - patient is still having vaginal bleeding but she reports it is not heavy. Abdominal US without fluid collection or signs of bleeding. Likely dilutional, she is positive 2.5 liters for this admission. Will have her repeat h&h in 2 days UA neg PRP WNL (3) Anxiety: continue clonazepam (4) Depression: continue home meds (5) Fibromyalgia: continue desvenlafaxine (6) Post traumatic stress disorder: continue home meds (7) Hypothyroidism: continue levothyroxine adn liothyronine (8) Headache: CT head negative, no focal findings on exam Likely tension headache Given toradol x 1 dose with improvement in symptoms this afternoon (9) DVT prophylaxis: Heparin gtt Total Time Total Time Spent Total Time Spent (In Minutes): greater than 30 minutes Discharge Plan Discharge Items Patient Disposition: Home - Self-Care Reason For Visit: PE Discharge Diagnosis: Pulmonary embolism Discharge Goals: Improve disease control Activity: Resume your previous activity Non-emergency contact: Primary Care Provider Call non-emergency contact if: you have any medication questions, your symptoms worsen, your pain is not controlled, your pain is worsening, your pain is unusual for you and you have a fever Follow-up/Referrals: [facility] [Provider Group] - 10/18/18 10:45 am (Please, follow up at [facility] (Coumadin Clinic) on October 18 at 11:00 am (arrive 10:45 am). *The clinic is located in the rear of this [facility]. Park behind the hospital in [address]. Enter via [facility]. If you need to change this appointment, call Central Scheduling at [phone].) Stephanie Pickens DO [Primary Care Provider] - 10/22/18 9:00 am (Please, follow up with Dr. Stephanie Pickens on MondayOctober 22 at 9:00 am. *If you need to change this appointment, call the office at [phone].) Diet: Regular Other Ambulatory Orders: Hemoglobin and Hematocrit (Routine) Timeframe: 2 Days Location: Determined by Patient Ordered By: Silvana Martinez Prothrombin Time INR (Routine) Timeframe: 1 Day Location: Determined by Patient Ordered By: Silvana Petty Provider Instructions: You will be sent home with and anticoagulant called warfarin. You should call your doctor right away if you fall or hit your head, if you see blood in your stool or black tarry stools, if you develop little red spots on your skin (petechiae), or if you develop excessive bruising. You may bleed more easily. Be careful and avoid injury. Use a soft toothbrush and an electric razor. Do not to take any jnxk-zvj-mulatym pain medicine except Tylenol (including aspirin, ibuprofen, Motrin, Aleve, Advil, naproxen, diclofenac sodium, oral Voltaren, also avoid fish oil as all these medications increase your incidence of bleeding) You can take Tylenol as needed for pain but not more than 3000 mg per day as a total dose (that is the maximum of 6 tablet, 500 mg each, divided throughout the day), if you take more than the total of 3000 mg of Tylenol throughout the day you may damage your liver. Call your doctor right away if you have an increase in pain or sob or return to the emergency department. Please have your INR drawn tomorrow. I will call you if a change to your Coumadin is necessary Prescriptions: New tramadol [Ultram] 50 mg tablet 50 mg PO Q4H PRN (Reason: pain) Qty: 20 RF: 0 warfarin [Coumadin] 3 mg Tablet 3 mg PO DAILY@1600 Qty: 3 RF: 0 Continued promethazine [Phenergan] 25 mg suppository 25 mg ND Q6H MDD 2 PRN (Reason: Nausea) RF: 0 clonazepam 0.5 mg Tablet 0.25 mg PO DIRECTED PRN (Reason: Anxiety/Sleep) RF: 0 liothyronine [Cytomel] 5 mcg Tablet 5 mcg PO BID RF: 0 levothyroxine 75 mcg Tablet 75 mcg PO QAM RF: 0 fluticasone propionate [Flonase Allergy Relief] 50 mcg/actuation [place],Suspension 2 spray INTRANASAL QAM RF: 0 cholecalciferol (vitamin D3) [Vitamin D3] 1,000 unit Tablet 1,000 units PO DAILY RF: 0 desvenlafaxine succinate 100 mg Tablet Extended Release 24 Hr 100 mg PO QAM RF: 0 Trintellix 5 mg Tablet 5 mg PO QAM RF: 0 Probiotic 15 billion cell Capsule 1 cap PO QDD RF: 0 acetaminophen [Tylenol Extra Strength] 500 mg Tablet 1,000 mg PO Q6H PRN (Reason: Pain) RF: 0 polyethylene glycol 3350 [Miralax] 17 gram Powder In Packet 17 g PO DAILY RF: 0 ondansetron 4 mg tablet,disintegrating 4 mg PO UD PRN (Reason: Nausea) RF: 0 esomeprazole magnesium [Nexium] 20 mg Capsule,Delayed Release(Dr/Ec) 20 mg PO DAILY RF: 0 trazodone 50 mg PO HS RF: 0 Discontinued ibuprofen [Motrin IB] 200 mg Tablet 200 mg PO BID PRN (Reason: Pain) RF: 0 Stand-Alone Forms: Call Back Authorization, [facility]/Other Patient Handouts: Tramadol Hydrochloride Oral tablet, Embolism Pulmonary, Coumadin Discharge Orders: Discharge Order (Routine); Ordered 10/16/18 Ordered By: Silvana Martinez Admission Data Admit Date/Time: 10/12/18 15:48 Attending Provider: Kristofer Lockett Admit Provider: Cheryle Plunkett Primary Care Provider: Stephanie Pickens Other Providers: Cheryle Plunkett ; Chreyle Vickers ; Silvana Martinez Service: Telemetry Other Interventions: Discharge Summary Assessment (RN) Last Done: 10/16/18 17:19
[2018-10-16] MEDS ORDERED: TRAMADOL HCL 50 MG TABLET PO PRN (20:30)
[2018-11-02 13:29] LABS: Anti Cardiolipin Ab IgG <14 GPL (< = 14); Anti Cardiolipin Ab IgM <12 MPL (< = 12); Anti-Thrombin III Activity 101 % activity (80-120); B2 Glycoprotein IgA <9 SAU (<=20); B2 Glycoprotein IgG <9 SGU (<=20); B2 Glycoprotein IgM <9 SMU (<=20); Protein S Functional(Activity) 75 % (60-140)
== END 2018-10-16 18:29 | disposition home or self-care (01) | DRG 205 ==
LOC: ED 10:59 → SUATTDRO 15:48 → 2S 15:48

== ENCOUNTER 2021-05-11 15:52 | Inpatient (IN) ==
[2021-05-11] MEDS ORDERED: ONDANSETRON INJ 2 MG/ML 2 ML VIAL IV STA ×2 (16:19→20:24)
[2021-05-11 18:38] LABS: Appearance Urine Clear (Clear); Bacteria Urine Automated Negative (Negative); Bilirubin Urine Negative (Negative); Blood Urine 1+ (Negative); Cast Urine Automated 0 /lpf (0-5); Color Urine Yellow; Glucose Urine UA Negative (Negative); Ketones Urine Negative (Negative); Leukocyte Esterase Urine Negative (Negative); Nitrite Urine Negative (Negative); Protein Urine Negative (Negative); RBC Urine Automated 0-4 /hpf (0-4); Specific Gravity Urine 1.017 (1.000-1.030); Urobilinogen Urine Negative (Negative)
[2021-05-11 18:38] LABS: Basophils # (auto) 0.03 K/uL (0-0.2); Basophils % (auto) 0.2 %; Eosinophils # (auto) 0.07 K/uL (0-0.5); Eosinophils % (auto) 0.5 %; Hemoglobin 14.1 g/dL (12.0-16.0); Immature Granulocytes # (auto) 0.03 K/uL (0.00-0.02); Immature Granulocytes % (auto) 0.2 %; Lymphocytes # (auto) 3.53 K/uL (1.2-3.4); Lymphocytes % (auto) 25.6 %; Mean Corpuscular Hemoglobin 29.3 pg (25-34); Mean Corpuscular Hgb Conc 33.6 g/dL (32-36); Mean Corpuscular Volume 87.1 fL (80-100); Mean Platelet Volume 10.4 fL (7.4-10.4); Monocytes # (auto) 0.97 K/uL (0.11-0.59); Neutrophils # (auto) 9.16 K/uL (1.4-6.5); Neutrophils % (auto) 66.5 %; Platelet Count 340 K/uL (130-400); RDW Coefficient of Variation 13.4 % (11.5-14.5); RDW Standard Deviation 43.1 fL (36.4-46.3); Red Blood Count 4.82 M/uL (4.2-5.4); White Blood Count 13.79 K/uL (4.8-10.8)
[2021-05-11 18:41] LABS: Albumin Level 3.4 gm/dl (3.4-5.0); BUN Creatinine Ratio 22.3 (10-20); Calcium 9.7 mg/dl (8.5-10.1); Creatinine Clr Calc Pharmacy 95.9 ml/min; Est GFR (African American) 116.9 ml/min; Est GFR (Non-African American) 100.9 ml/min; Potassium 4.8 mmol/L (3.5-5.1)
[2021-05-11 18:43] LABS: Albumin Globulin Ratio 0.8 (0.9-2); Bilirubin,Total 0.4 mg/dl (0.2-1); Globulin 4.2 gm/dl (2.5-4.0); Total Protein 7.6 gm/dl (6.4-8.2)
[2021-05-11] MEDS ORDERED: fentaNYL citrate 100 MCG/2 ML VIAL IV STA ×2 (20:24→22:23)
--- NOTE | 2021-05-11 20:26 | Emergency Department Note ---
History of Present Illness General Chief complaint: Abdominal Pain Stated complaint: ABDOMINAL PAIN Time Seen by Provider: 05/11/21 20:17 Source: patient History of Present Illness Provider complaint: Left lower quadrant pain Onset (ago): week(s) Location: abdomen Pain Consistency: + intermittent Maximum Pain Intensity: 8 Quality: + sharp and + other (Cramping) Relieved By: + none Associated symptoms: no chest pain, no cough, no fever/chills, no nausea/vomiting or no shortness of breath This is a 55-year-old female who was recently diagnosed with diverticulitis presenting with worsening abdominal pain. She states the pain never went away. She was diagnosed with diverticulitis on the third of this month and placed on Cipro and Flagyl. She finished the antibiotics on the . She states that her pain got worse on the and she came back to the emergency department. She had another CT of the abdomen pelvis which showed improvement of her diverticulitis and she was discharged home. She has been seen by her GI doctor who recommended she stay on a liquid and bland diet. She did have a bowel movement yesterday which was loose and watery in the stool was pale. She states last night her pain got worse and feels sharp. It is located in the left lower quadrant. No modifying factors. No associated fever or vomiting. She denies any cough or cold symptoms, chest pain, shortness of breath or urinary symptoms. She does state that she had a prior history of diverticulitis about 5 years ago and was treated with Cipro Flagyl but subsequently developed C. difficile colitis. She was told by her GI doctor and that should she be placed on another course of antibiotic she should probably be placed on vancomycin as well. Home Medications Medication Instructions Recorded Confirmed Type desvenlafaxine succinate 100 mg 100 mg PO QAM 08/21/18 05/11/21 History tablet,extended release 24 hr inhalational spacing device #1 ea 03/14/19 05/01/21 Rx (Aerochamber MV) nebulizer accessories #1 ea 03/14/19 05/01/21 Rx nebulizer and compressor #1 ea 03/14/19 05/01/21 Rx albuterol sulfate 90 mcg/actuation 2 puffs INHALATION Q6H PRN #18 gm 09/20/19 05/11/21 Rx aerosol inhaler clonazepam 0.5 mg tablet 0.25 mg PO HS 07/07/20 05/11/21 History [id number]-1-gwr-epa-fish oil-vit D3 300 1 cap PO DAILY #30 cap 10/07/20 05/11/21 Rx mg-1,000 mg-1,000 unit capsule (Fish Oil-Vit D3) lactobacillus combination no.4 3 3,000 mmu cells PO HS 11/09/20 05/11/21 History billion cell capsule (Probiotic) levothyroxine 50 mcg tablet 50 mcg PO Q OTHER DAY tab 03/23/21 05/11/21 History levothyroxine 75 mcg tablet 75 mcg PO Q OTHER DAY #45 tab 03/23/21 05/11/21 Rx fluvoxamine 25 mg tablet 25 mg PO QAM 04/07/21 05/11/21 History liothyronine 5 mcg tablet (Cytomel) 5 mcg PO BID 90 Days #180 tab 04/13/21 05/11/21 Rx cholecalciferol (vitamin D3) 125 125 mcg PO HS 04/21/21 05/11/21 History mcg (5,000 unit) tablet (Vitamin D3) fexofenadine 180 mg tablet 180 mg PO QAM 04/21/21 05/11/21 History fluticasone propionate 50 2 spray INTRANASAL BID 04/21/21 05/11/21 History mcg/actuation nasal spray,suspension tramadol 50 mg tablet 50 mg PO BID PRN #6 tab 04/21/21 05/11/21 Rx sennosides 8.6 mg-docusate sodium 1 - 2 tab-cap PO BID PRN #60 tab 05/01/21 Rx 50 mg tablet (Senokot-S) acetaminophen 325 mg tablet 650 mg PO QID 05/11/21 05/11/21 History (Tylenol) doxycycline hyclate 100 mg capsule 100 mg PO QID 05/11/21 05/11/21 History ondansetron HCl 4 mg tablet 4 mg PO Q4H 05/11/21 05/11/21 History Allergies Allergy/AdvReac Type Severity Reaction Status Date / Time codeine Allergy Intermediate Hives Verified 05/11/21 20:34 guaifenesin Allergy Intermediate Hives Verified 05/11/21 20:34 morphine Allergy Intermediate Hives Verified 05/11/21 20:34 pseudoephedrine Allergy Intermediate Hives Verified 05/11/21 20:34 Sulfa (Sulfonamide Allergy Intermediate Hives Verified 05/11/21 20:34 Antibiotics) thimerosal Allergy Intermediate ulcerations Verified 05/11/21 20:34 in eye Penicillins Allergy Mild Hives Verified 05/11/21 20:34 pentosan polysulfate sodium Allergy Unknown Verified 05/11/21 20:34 [From [facility]] Past Med/Surg History Medical History Abnormal uterine bleeding Anxiety Bilateral pulmonary embolism 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 with unrestricted hearing of right ear Constipation Depression Fibromyalgia GERD (gastroesophageal reflux disease) Hypothyroidism On anticoagulant therapy on eliquis Post traumatic stress disorder Pulmonary embolism diagnosed 10/12/18 after hysterectomy currently on eliquis Sciatica LLE Surgical History History of esophagogastroduodenoscopy (EGD) History of hysterectomy History of tonsillectomy and adenoidectomy Hx of appendectomy Hx of carpal tunnel repair right Hx of cholecystectomy 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19, [employer] related Nausea and vomiting after administration of anesthetic agent Family History Father Family history of diabetes mellitus Family hx colonic polyps Family/Other Family history of diabetes mellitus 1st cousin Mother Family hx colonic polyps Other No family history of adverse response to anesthesia Social History Smoking Status: Never smoker Second Hand Exposure: No; Hx Alcohol Use: No Hx Substance Use: No Preferred Language: Czech Communication Ability: Effective [employer] Platemaker Required: No Beliefs That Will Affect Care: None Current Living Situation: Spouse Current Living Situation Comment: Lives with and 2 adult kids Feels Safe at Home: Yes Assistive Devices: None Review of Systems See HPI for pertinent positives & negatives. and A total of 10 systems reviewed and were otherwise negative Physical Exam Vital Signs Vital Signs - 24 hr 05/11/21 16:13 05/11/21 20:45 05/11/21 21:02 Temperature 37.1 C Temperature Source Temporal Artery Scan Pulse Rate 99 H Pulse Rate from SpO2 Sensor 84 87 Respiratory Rate 17 15 15 Blood Pressure 119/86 135/77 Blood Pressure Mean 97 96 Pulse Oximetry 97 96 97 Oxygen Delivery Method Room Air Room Air Room Air Sepsis Recent Fever Within 48 Hours No Sepsis New/Unexplained Change in Mental Status N/A Sepsis Action Taken by Nursing No Action Required Constitutional: Vital signs reviewed. Eyes: Pupils are equal round reactive to light. Conjunctiva are noninjected. ENT: Pharynx is clear without erythema or exudate. Mucous membranes are slightly dry. Neck supple without meningeal signs. Respiratory: Clear to auscultation bilaterally. Breath sounds are equal bilaterally. Cardiovascular: Regular rate and rhythm. No rubs or gallops. GI: Soft, nondistended with tenderness in the left lower quadrant and left middle abdomen. She has no rebound tenderness. Bowel sounds are present. Musculoskeletal: No peripheral edema. No lower extremity tenderness. Integumentary: No cyanosis. or jaundice. Neurological: The patient is awake and alert. No focal deficits. Psychiatric: Slightly anxious. Course Administered Medications Sodium Chloride (Nss 1000ml) 1,000 mls @ 150 mls/hr IV .Q6H40M BRENDA Stop: 06/10/21 20:29 Last Admin: 05/11/21 20:37 Dose: 150 mls/hr Documented by: [id number] Discontinued Medications Fentanyl Citrate (Fentanyl Citrate 100 Mcg/2 Ml Vial) 50 mcg IV NOW STA Stop: 05/11/21 20:25 Last Admin: 05/11/21 20:38 Dose: 50 mcg Documented by: [id number] Ioversol (Optiray 320 100ml) 95 ml IV ONCE ONE Stop: 05/11/21 20:58 Last Admin: 05/11/21 20:57 Dose: 95 ml Documented by: [id number] Ondansetron HCl (Ondansetron Inj 2 Mg/Ml 2 Ml Vial) 4 mg IV NOW STA Stop: 05/11/21 16:20 Last Admin: 05/11/21 18:10 Dose: 4 mg Documented by: [id number] Ondansetron HCl (Ondansetron Inj 2 Mg/Ml 2 Ml Vial) 4 mg IV NOW STA Stop: 05/11/21 20:25 Last Admin: 05/11/21 20:38 Dose: 4 mg Documented by: [id number] Ondansetron HCl (Ondansetron Inj 2 Mg/Ml 2 Ml Vial) Confirm Administered Dose 4 mg .ROUTE .STK-MED ONE Stop: 05/11/21 20:34 Last Admin: 05/11/21 21:08 Dose: Not Given Documented by: [id number] Medical Decision Making Differential Diagnosis Diverticulitis, abscess, perforation, peritonitis, phlegmon Medical Records Attestation: I reviewed the patient's medical records. I did perform a limited focused review of portions of the patient's old chart on the electronic medical record. The patient was seen here on March 21 for abdominal pain and diagnosed with diverticulitis on CT scan. She was discharged on Cipro and Flagyl. She was seen here again on the for worsening pain and had another CT scan with IV contrast which showed improvement of her diverticulitis. Home Medications Current Medication List: was personally reviewed by me Laboratory Data Attestation: I reviewed the patient's lab results. Result diagrams: 05/11/21 18:10 05/11/21 18:10 Lab Results 05/11/21 05/11/21 05/11/21 Range/Units 18:00 18:10 18:10 WBC 13.79 H (4.8-10.8) K/uL RBC 4.82 (4.2-5.4) M/uL Hgb 14.1 (12.0-16.0) g/dL Hct 42.0 (37-47) % MCV 87.1 (80-100) fL MCH 29.3 (25-34) pg MCHC 33.6 (32-36) g/dL RDW Std Deviation 43.1 (36.4-46.3) fL RDW Coeff of Lorri 13.4 (11.5-14.5) % Plt Count 340 (130-400) K/uL MPV 10.4 (7.4-10.4) fL Immature Gran % (Auto) 0.2 % Neut % (Auto) 66.5 % Lymph % (Auto) 25.6 % [place] % (Auto) 7.0 % Eos % (Auto) 0.5 % Baso % (Auto) 0.2 % Neut # (Auto) 9.16 H (1.4-6.5) K/uL Lymph # (Auto) 3.53 H (1.2-3.4) K/uL [place] # (Auto) 0.97 H (0.11-0.59) K/uL Eos # (Auto) 0.07 (0-0.5) K/uL Baso # (Auto) 0.03 (0-0.2) K/uL Immature Gran # (Auto) 0.03 H (0.00-0.02) K/uL Sodium 134 L (136-145) mmol/L Potassium 4.8 (3.5-5.1) mmol/L Chloride 103 (98-107) mmol/L Carbon Dioxide 27 (21-32) mmol/L Anion Gap 4.0 (3-11) BUN 15 (7-18) mg/dl Creatinine 0.66 (0.6-1.2) mg/dl Est Cr Clr Drug Dosing 95.9 ml/min Est GFR ( Amer) 116.9 ml/min Est GFR (Non-Af Amer) 100.9 ml/min BUN/Creatinine Ratio 22.3 H (10-20) Glucose 93 (70-99) mg/dl Calcium 9.7 (8.5-10.1) mg/dl Total Bilirubin 0.4 (0.2-1) mg/dl AST 22 (15-37) U/L ALT 31 (12-78) U/L Alkaline Phosphatase 84 (45-117) U/L Total Protein 7.6 (6.4-8.2) gm/dl Albumin 3.4 (3.4-5.0) gm/dl Globulin 4.2 H (2.5-4.0) gm/dl Albumin/Globulin Ratio 0.8 L (0.9-2) Lipase 144 (73-393) U/L Urine Color Yellow Urine Appearance Clear (Clear) Urine pH 5.0 (4.5-7.5) Ur Specific [place] 1.017 (1.000-1.030) Urine Protein Negative (Negative) Urine Glucose (UA) Negative (Negative) Urine Ketones Negative (Negative) Urine Blood 1+ H (Negative) Urine Nitrite Negative (Negative) Urine Bilirubin Negative (Negative) Urine Urobilinogen Negative (Negative) Ur Leukocyte Esterase Negative (Negative) Urine WBC (Auto) 1-5 (0-5) /hpf Urine RBC (Auto) 0-4 (0-4) /hpf U Hyaline Cast (Auto) 0 (0-5) /lpf U Epithel Cells (Auto) 10-20 H (0-5) /lpf Urine Bacteria (Auto) Negative (Negative) Imaging Data Radiologist's Impression: Abdomen/Pelvis CT 05/11/21 20:[address] WITH IV CONTRAST CT DOSE: 305.45 mGy.cm HISTORY: Acute left lower quadrant abdominal pain worsening LLQ pain eval for perf/abscess TECHNIQUE: Multiaxial CT images of the abdomen and pelvis were performed following the IV administration of 95 cc of Optiray, A dose lowering technique was utilized adhering to the principles of ALARA. COMPARISON STUDY: CT abdomen and pelvis 05/01/2021 FINDINGS: The imaged inferior cardiac chambers are unremarkable. Clear lung bases. Unchanged 1.4 cm hypodense focus of the spleen, favored to be benign. Unremarkable pancreas and adrenal glands. Cholecystectomy. Mild biliary ductal dilation is likely secondary to reservoir effect. Patent portal vein. No hydronephrosis. Symmetric enhancement of the kidneys. Subcentimeter hypodense focus of the inferior pole right kidney, likely represents a cyst however is too small to characterize. Unremarkable urinary bladder. Hysterectomy. 1.2 cm periph erally enhancing cystic structure of the left adnexum is unchanged. Aorta and IVC are unremarkable. No adenopathy. No bowel obstruction. Colonic diverticulosis. Acute diverticulitis of the descending sigmoid junction associated wall thickening and pericolonic inflammation has progressively worsened from prior. Punctate foci of extraluminal air noted on image 301 of series 3 compatible with microperforation. No abscess or fistula identified. Fecal and fluid-filled distention of the cecum. Reported appendectomy. Unremarkable soft tissues. No acute fracture. Degenerative changes of the spine, pelvis and hips. IMPRESSION: 1. Progressively worsened acute diverticulitis of the descending sigmoid junction with mild microperforation, new from 05/01/2021. No abscess. 2. No bowel obstruction. 3. Cholecystectomy. 4. Additional findings as above. ACT 112: Negative or not required by law. The above report was generated using voice recognition software. It may contain grammatical, syntax or spelling errors. Electronically signed by: Fan Rosas M.D. 05/11/2021 9:07 PM [facility] Narrative I did evaluate the patient as noted above. The patient is presenting with worsening pain starting last night despite full treatment for diverticulitis. She has significant tenderness on the left lower quadrant. IV access was established. I did treat the patient with normal saline, fentanyl and Zofran IV. I did order a urine analysis. There is no evidence of UTI. I did order and review the patient's blood work as noted in the electronic medical record. Her white count is elevated at 13.7. Electrolytes show a sodium of 134 but are otherwise unremarkable. BUN and creatinine are 15 and 0.66. LFTs and lipase are unremarkable. After discussion with the patient I did recommend we add a CT of the abdomen pelvis given her elevated white count and worsening pain. She was agreeable. I did order a CT of the abdomen and pelvis. I did review the images myself as well as the radiology report as described above. She has worsening diverticulitis of the descending colon and sigmoid colon with microperforation. No abscess or buck perforation is noted. I did discuss the test results with the patient. I did discuss the case with general surgery. I did discuss the case with the hospitalist and piano case maker. After discussion with the hospitalist I did treat the patient with 1 g of ertapenem. The patient states that her penicillin allergy is only hives. She has never had anaphylaxis to this. She is aware that there is some type of cross-reactivity and will let us know if she has any symptoms while being infused with the antibiotic. She was also given vancomycin 125 mg p.o. as her GI doctor recommended this to prevent recurrent C. difficile infection. Impression & Plan Diverticulitis of colon with perforation Discharge Plan Visit Data Chief Complaint: Abdominal Pain Stated Complaint: ABDOMINAL PAIN ED Provider: Kristofer Payne Discharge Problem: Diverticulitis of colon with perforation Patient Disposition: Being Evaluated by Hospitalist Forms Stand Alone Forms: My [facility] Prescriptions Prescriptions: No Action albuterol sulfate 90 mcg/actuation HFA aerosol inhaler 2 puffs inhalation Q6H PRN (Reason: shortness of breath or wheezing) Qty: 18 RF: 3 levothyroxine 50 mcg tablet 50 mcg PO Q OTHER DAY RF: 0 levothyroxine 75 mcg tablet 75 mcg PO Q OTHER DAY Qty: 45 RF: 1 liothyronine [Cytomel] 5 mcg tablet 5 mcg PO BID 90 Days Qty: 180 RF: 3 fluvoxamine 25 mg tablet 25 mg PO QAM RF: 0 yx-4-vvs-epa-fish oil-vit D3 [Fish Oil-Vit D3] 300-1,000-1,000 mg-mg-unit capsule 1 cap PO DAILY Qty: 30 RF: 0 Probiotic 3 billion cell capsule 3,000 mmu cells PO HS RF: 0 (DME) Aerochamber MV spacer See Dose Instructions .ROUTE .MEDSUPPLY Qty: 1 RF: 0 (DME) nebulizer and compressor device See Dose Instructions [id number] .MEDSUPPLY Qty: 1 RF: 0 (DME) nebulizer accessories kit See Dose Instructions .ROUTE .MEDSUPPLY Qty: 1 RF: 0 desvenlafaxine succinate 100 mg Tablet Extended Release 24 Hr 100 mg PO QAM RF: 0 clonazepam 0.5 mg tablet 0.25 mg PO HS RF: 0 fexofenadine 180 mg Tablet 180 mg PO QAM RF: 0 cholecalciferol (vitamin D3) [Vitamin D3] 125 mcg (5,000 unit) Tablet 125 mcg PO HS RF: 0 fluticasone propionate 50 mcg/actuation spray,suspension 2 spray intranasal BID RF: 0 tramadol 50 mg tablet 50 mg PO BID PRN (Reason: pain) Qty: 6 RF: 0 sennosides-docusate sodium [Senokot-S] 8.6-50 mg tablet 1 - 2 tab-cap PO BID PRN (Reason: constipation) Qty: 60 RF: 2 acetaminophen [Tylenol] 325 mg Tablet 650 mg PO QID RF: 0 doxycycline hyclate 100 mg capsule 100 mg PO QID RF: 0 ondansetron HCl 4 mg tablet 4 mg PO Q4H RF: 0 Referrals Referrals: Dominique Carrillo DO [Primary Care Provider] -
[2021-05-11] MEDS ORDERED: ONDANSETRON INJ 2 MG/ML 2 ML VIAL ONE (20:33)
[2021-05-11] MEDS: SODIUM CHLORIDE 0.9% 1000ML 1,000 ML IV SCH (20:37)
[2021-05-11] MEDS ORDERED: OPTIRAY 320 100ml IV ONE (20:57)
--- NOTE | 2021-05-11 21:09 | CT Scan Report ---
ABDOMEN AND PELVIS CT WITH IV CONTRAST CT DOSE: 305.45 mGy.cm HISTORY: Acute left lower quadrant abdominal pain worsening LLQ pain eval for perf/abscess TECHNIQUE: Multiaxial CT images of the abdomen and pelvis were performed following the IV administrat ion of 95 cc of Optiray, A dose lowering technique was utilized adhering to the principles of ALARA. COMPARISON STUDY: CT abdomen and pelvis 05/01/2021 FINDINGS: The imaged inferior cardiac chambers are unremarkable. Clear lung bases. Unchanged 1.4 cm h ypodense focus of the spleen, favored to be benign. Unremarkable pancreas and adrenal glands. Cholecy stectomy. Mild biliary ductal dilation is likely secondary to reservoir effect. Patent portal vein. N o hydronephrosis. Symmetric enhancement of the kidneys. Subcentimeter hypodense focus of the inferior pole right kidney, likely represents a cyst however is too small to characterize. Unremarkable urina ry bladder. Hysterectomy. 1.2 cm peripherally enhancing cystic structure of the left adnexum is uncha nged. Aorta and IVC are unremarkable. No adenopathy. No bowel obstruction. Colonic diverticulosis. Acute diverticulitis of the descending sigmoid junction associated wall thickening and pericolonic inflammation has progressively worsened from prior. Punct ate foci of extraluminal air noted on image 301 of series 3 compatible with microperforation. No absc ess or fistula identified. Fecal and fluid-filled distention of the cecum. Reported appendectomy. Unr emarkable soft tissues. No acute fracture. Degenerative changes of the spine, pelvis and hips. IMPRESSION: 1. Progressively worsened acute diverticulitis of the descending sigmoid junction with mild microperf oration, new from 05/01/2021. No abscess. 2. No bowel obstruction. 3. Cholecystectomy. 4. Additional findings as above. ACT 112: Negative or not required by law. The above report was generated using voice recognition software. It may contain grammatical, syntax o r spelling errors. Electronically signed by: Fan Rosas M.D. 05/11/2021 9:07 PM
[2021-05-11] MEDS ORDERED: ERTAPENEM SODIUM 10 ML IV STA (21:28)
[2021-05-11] MEDS ORDERED: VANCOMYCIN HCL 125 MG/2.5ML SOLN PO STA (21:28)
--- NOTE | 2021-05-11 22:04 | Surgery Consultation ---
Date of Consultation May 11, 2021 Assessment & Plan (1) Diverticulitis: I discussed this patient with the treating emergency room physician. He is planning on having the hospitalist admit the patient. We recommend proceeding as follows: Provide analgesics Provide antiemetics Implement intravenous antibiotics. As the patient has completed a course of oral Cipro and Flagyl and has allergies to penicillin he is planning on initiating intravenous ertapenem. Recommend bowel rest with n.p.o. status. (Patient may have an occasional ice chip) Hydration measures without intravenous fluids should be implemented I had a very lengthy discussion with the patient and her who is present at bedside. I discussed with them the above treatment plan. I did inform them that we would prefer to employ nonoperative interventions as any operation at this time would likely require Mago procedure involving a temporary colostomy. I did discuss with them that if the patient does not clinically improve an emergent or semiemergent operation may be required. Follow serial labs Repeat imaging can be considered in the event that the patient clinically deteriorates or does not show signs of clinical improvement Remainder of plan as directed by the hospitalist service We will continue following with the patient is hospitalized Supervising Physician Co-Signing Physician Notes Pnt discussed with SERAFIN Garcia, labs and imaging reviewed, agree with above. 55 y/o female with diverticulitis with contained microperforation, vs stable, wbc slightly elevated. Recommend admit to medicine, iv abx, npo, ivfs. No surgical intervention at thit time. surgyer will follow. History of Present Illness Reason for Consultation: Diverticulitis with microperforation History of Present Illness This is a 55-year-old female who presents to [facility] secondary abdominal pain. The patient's current clinical presentation began around April 21 when she was seen in the emergency department for left lower quadrant abdominal pain. At that time the patient was noted to have an elevated white blood cell count of 12.7. Patient did have a CT scan of the abdomen and pelvis at that time that showed evidence of acute diverticulitis involving the distal descending colon as well as the proximal sigmoid colon. Patient was able to be discharged home with Cipro and Flagyl which she completed. It is noteworthy the mention that the patient reports that at the time of discharge she was eating solid foods and did not really have any bowel rest implemented. Patient was seen again in the emergency department on May 01 of this year secondary to diarrhea. At that time the patient's white blood cell count was noted to be normal at 7.7. She did have a repeat CT scan at that time which showed the patient did have improvement of the diverticulitis identified at her initial emergency department visit. The patient was noted to have evidence of fecal stasis on the study. Following that visit the patient said that she was seen by [facility] gastroenterology and patient was instructed to consume a bland diet. At the recommendation of patient's primary care physician she did have a referral placed to colorectal surgery with her [facility] and this appointment was for early May of this year. She said she was initially doing well but over the past 12 to 24 hours she developed worsening left lower quadrant abdominal pain with associated nausea and vomiting. She denies any fevers, shakes, or chills. She notes that the pain is worse with any movement and really did not have any other provocative factors. She said the pain does not radiate. She denies any palliative factors other than pain medicines that were administered in the emergency department. Patient denies any melanotic stools or bright red blood per rectum. Patient does report prior history of diverticulitis approximately 5 years ago. The patient says that she did not require hospitalization and was treated successfully in a conservative manner as an outpatient. She says she did take antibiotics but did develop C. difficile. She also notes that she did have a colonoscopy in 2019 and to the best of her knowledge this only demonstrated diverticular disease. Patient does report having had prior abdominal surgeries. She has had a laparoscopic cholecystectomy, an open appendectomy, and a robotic hysterectomy. It is noteworthy mention that the patient reports following her hysterectomy she did develop pulmonary emboli. She said that she was taking anticoagulants following that surgery but no longer requires anticoagulation. In the emergency department the patient did have labs and imaging which I independently reviewed. CT scan of the abdomen and pelvis utilizing IV contrast showed the patient had acute diverticulitis that appeared progressively worse when compared to prior CT scans. Her diverticulitis involve the descending sigmoid colon. A microperforation was noted, however no abscess was noted. Labs include a CBC her white blood cell count was 13.7. Hemoglobin, hematocrit, and platelet count were all within normal range. Chemistry profile showed her sodium was 134. Potassium, BUN, and creatinine were all within normal range. There is no significant elevation noted of LFTs. Lipase was noted to be normal. Urinalysis was not indicative of infection. A Covid test has been performed and is noted to be pending. At the time of my interview the patient was resting comfortably in bed. She was in no distress. Allergies Allergy/AdvReac Type Severity Reaction Status Date / Time codeine Allergy Intermediate Hives Verified 05/11/21 20:34 guaifenesin Allergy Intermediate Hives Verified 05/11/21 20:34 morphine Allergy Intermediate Hives Verified 05/11/21 20:34 pseudoephedrine Allergy Intermediate Hives Verified 05/11/21 20:34 Sulfa (Sulfonamide Allergy Intermediate Hives Verified 05/11/21 20:34 Antibiotics) thimerosal Allergy Intermediate ulcerations Verified 05/11/21 20:34 in eye Penicillins Allergy Mild Hives Verified 05/11/21 20:34 pentosan polysulfate sodium Allergy Unknown Verified 05/11/21 20:34 [From [facility]] Home Medications Medication Instructions Recorded Confirmed Type desvenlafaxine succinate 100 mg 100 mg PO QAM 08/21/18 05/11/21 History tablet,extended release 24 hr inhalational spacing device #1 ea 03/14/19 05/01/21 Rx (Aerochamber MV) nebulizer accessories #1 ea 03/14/19 05/01/21 Rx nebulizer and compressor #1 ea 03/14/19 05/01/21 Rx albuterol sulfate 90 mcg/actuation 2 puffs INHALATION Q6H PRN #18 gm 09/20/19 05/11/21 Rx aerosol inhaler clonazepam 0.5 mg tablet 0.25 mg PO HS 07/07/20 05/11/21 History ak-9-[id number]-epa-fish oil-vit D3 300 1 cap PO DAILY #30 cap 10/07/20 05/11/21 Rx mg-1,000 mg-1,000 unit capsule (Fish Oil-Vit D3) lactobacillus combination no.4 3 3,000 mmu cells PO HS 11/09/20 05/11/21 History billion cell capsule (Probiotic) levothyroxine 50 mcg tablet 50 mcg PO Q OTHER DAY tab 03/23/21 05/11/21 History levothyroxine 75 mcg tablet 75 mcg PO Q OTHER DAY #45 tab 03/23/21 05/11/21 Rx fluvoxamine 25 mg tablet 25 mg PO QAM 04/07/21 05/11/21 History liothyronine 5 mcg tablet (Cytomel) 5 mcg PO BID 90 Days #180 tab 04/13/21 05/11/21 Rx cholecalciferol (vitamin D3) 125 125 mcg PO HS 04/21/21 05/11/21 History mcg (5,000 unit) tablet (Vitamin D3) fexofenadine 180 mg tablet 180 mg PO QAM 04/21/21 05/11/21 History fluticasone propionate 50 2 spray INTRANASAL BID 04/21/21 05/11/21 History mcg/actuation nasal spray,suspension tramadol 50 mg tablet 50 mg PO BID PRN #6 tab 04/21/21 05/11/21 Rx sennosides 8.6 mg-docusate sodium 1 - 2 tab-cap PO BID PRN #60 tab 05/01/21 05/11/21 Rx 50 mg tablet (Senokot-S) acetaminophen 325 mg tablet 650 mg PO QID 05/11/21 05/11/21 History (Tylenol) doxycycline hyclate 100 mg capsule 100 mg PO QID 05/11/21 05/11/21 History ondansetron HCl 4 mg tablet 4 mg PO Q4H 05/11/21 05/11/21 History Patient History Medical History Abnormal uterine bleeding Anxiety Bilateral pulmonary embolism 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 with unrestricted hearing of right ear Constipation Depression Fibromyalgia GERD (gastroesophageal reflux disease) Hypothyroidism On anticoagulant therapy on eliquis Post traumatic stress disorder Pulmonary embolism diagnosed 10/12/18 after hysterectomy currently on eliquis Sciatica LLE Surgical History History of esophagogastroduodenoscopy (EGD) History of hysterectomy History of tonsillectomy and adenoidectomy Hx of appendectomy Hx of carpal tunnel repair right Hx of cholecystectomy 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19, [employer] related Nausea and vomiting after administration of anesthetic agent Family History Father Family history of diabetes mellitus Family hx colonic polyps Family/Other Family history of diabetes mellitus 1st cousin Mother Family hx colonic polyps Other No family history of adverse response to anesthesia Social History Smoking Status: Never smoker Second Hand Exposure: No; Hx Alcohol Use: No Hx Substance Use: No Preferred Language: Welsh Communication Ability: Effective Liquid Sugar Fortifier Required: No Beliefs That Will Affect Care: None Current Living Situation: Spouse Current Living Situation Comment: Lives with and 2 adult kids Feels Safe at Home: Yes Assistive Devices: None Review of Systems Constitutional: no fever and no chills Eyes: + corrective lenses Ear, Nose, Mouth, Throat: no ear pain Respiratory: no cough and no dyspnea Cardiovascular: no chest pain Gastrointestinal: + abdominal pain and + nausea; no vomiting and no diarrhea/loose stools Genitourinary: no dysuria Musculoskeletal: no back pain Integumentary: no rash Neurologic: no localized weakness Physical Exam 2 Constitutional: well developed and well nourished; no acute distress Eyes: no conjunctival abnormality ENMT: Ears: no hearing impairment Mouth: no oropharynx abnormality Neck: trachea midline Respiratory: normal respiratory effort, lungs clear to auscultation Cardiovascular: Rate/Rhythm: regular rate and regular rhythm Gastrointestinal (Abdomen): Patient's abdomen is soft and nondistended. Bowel sounds are present. There is no tympany to percussion. Marked tenderness in the right lower quadrant was noted with deep and light palpation. Rebound tenderness was noted. Musculoskeletal: No calf tenderness Skin: no rashes Neurologic: moves all extremities Psychiatric: A+Ox3, euthymic affect Results & Data ([facility]) Vital Signs (Past 12 Hours) Vital Signs Temp Pulse Resp BP Pulse Ox 05/11/21 21:02 15 135/77 97 05/11/21 20:45 15 96 05/11/21 16:13 37.1 C 99 H 17 119/86 97 PG Care Time/CCT Total # of Minutes Spent Total Time Spent with Patient: Total time spent is greater than 50% in coordination of care (as documented) at patient's floor/unit and/or counseling patient: Coding Level of Care Code 16092 Inpt Consult Level 5 Diagnoses Diverticulitis K57.92
[2021-05-11 22:19] LABS: Magnesium 2.1 mg/dl (1.8-2.4)
[2021-05-11] MEDS ORDERED: HYDROmorphone INJ 0.5 MG/0.5 ML SYR IV STA (23:53)
--- NOTE | 2021-05-12 01:58 | History & Physical Report ---
Date of Service May 12, 2021 Assessment & Plan (1) Diverticulitis of large intestine with complication: Plan: Recurrent disease Failed outpatient treatment No sepsis for now postop pulmonary embolism status post anticoagulation fibromyalgia, anxiety/mood disorder/PTSD, at baseline hypothyroidism, euthyroid as of recent TSH GMF Ertapenem Analgesia Surgery consult Re: Complicated diverticulitis strict n.p.o. given microperforation Resume oral levothyroxine once patient allowed to take pills DVT prophylaxis per Lovenox subcu Full code. Text document was generated using Spout voice recognition software. It may contain grammatical or spelling errors. Kindly contact undersigned for clarification of any documentation item in question. History of Present Illness Chief Complaint: Worsening abdominal pain/diverticulitis Primary Care Provider: Dominique Carrillo DO History obtained from patient and records. Medical history significant for recurrent diverticulitis, postop pulmonary embolism status post anticoagulation, fibromyalgia, anxiety/mood disorder/PTSD, hypothyroidism, otosclerosis as per records Last confinement 2018 for pulmonary embolism post robotic hysterectomy. Patient discharged and subsequently completed anticoagulation. 2 weeks ago, patient noted achy left lower abdominal discomfort reminiscent of diverticulitis pain. No fever, no chills. Patient evaluated at the ER. Imaging showed diverticulitis. Patient discharged home on Cipro Flagyl course. Patient returned to ER a few days later because of diarrhea. Repeat CAT scan showed improved diverticulitis. Outpatient colorectal surgery referral contemplated by PCP for recurrent diverticulitis. 2 days ago, patient noted worsening discomfort with nausea vomiting. No fever, no chills. Transient hematochezia. Patient given Ertapenem at the ER for complicated diverticulitis. 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 Allergies Allergy/AdvReac Type Severity Reaction Status Date / Time codeine Allergy Intermediate Hives Verified 05/11/21 20:34 guaifenesin Allergy Intermediate Hives Verified 05/11/21 20:34 morphine Allergy Intermediate Hives Verified 05/11/21 20:34 pseudoephedrine Allergy Intermediate Hives Verified 05/11/21 20:34 Sulfa (Sulfonamide Allergy Intermediate Hives Verified 05/11/21 20:34 Antibiotics) thimerosal Allergy Intermediate ulcerations Verified 05/11/21 20:34 in eye Penicillins Allergy Mild Hives Verified 05/11/21 20:34 pentosan polysulfate sodium Allergy Unknown Verified 05/11/21 20:34 [From [facility]] Home Medications Medication Instructions Recorded Confirmed Type desvenlafaxine succinate 100 mg 100 mg PO QAM 08/21/18 05/11/21 History tablet,extended release 24 hr inhalational spacing device #1 ea 03/14/19 05/01/21 Rx (Aerochamber MV) nebulizer accessories #1 ea 03/14/19 05/01/21 Rx nebulizer and compressor #1 ea 03/14/19 05/01/21 Rx albuterol sulfate 90 mcg/actuation 2 puffs INHALATION Q6H PRN #18 gm 09/20/19 05/11/21 Rx aerosol inhaler clonazepam 0.5 mg tablet 0.25 mg PO HS 07/07/20 05/11/21 History mz-2-nhv-epa-fish oil-vit D3 300 1 cap PO DAILY #30 cap 10/07/20 05/11/21 Rx mg-1,000 mg-1,000 unit capsule (Fish Oil-Vit D3) lactobacillus combination no.4 3 3,000 mmu cells PO HS 11/09/20 05/11/21 History billion cell capsule (Probiotic) levothyroxine 50 mcg tablet 50 mcg PO Q OTHER DAY tab 03/23/21 05/11/21 History levothyroxine 75 mcg tablet 75 mcg PO Q OTHER DAY #45 tab 03/23/21 05/11/21 Rx fluvoxamine 25 mg tablet 25 mg PO QAM 04/07/21 05/11/21 History liothyronine 5 mcg tablet (Cytomel) 5 mcg PO BID 90 Days #180 tab 04/13/21 05/11/21 Rx cholecalciferol (vitamin D3) 125 125 mcg PO HS 04/21/21 05/11/21 History mcg (5,000 unit) tablet (Vitamin D3) fluticasone propionate 50 2 spray INTRANASAL BID 04/21/21 05/11/21 History mcg/actuation nasal spray,suspension tramadol 50 mg tablet 50 mg PO BID PRN #6 tab 04/21/21 05/11/21 Rx sennosides 8.6 mg-docusate sodium 1 - 2 tab-cap PO BID PRN #60 tab 05/01/21 05/11/21 Rx 50 mg tablet (Senokot-S) acetaminophen 325 mg tablet 650 mg PO QID 05/11/21 05/11/21 History (Tylenol) doxycycline hyclate 100 mg capsule 100 mg PO QID 05/11/21 05/11/21 History ondansetron HCl 4 mg tablet 4 mg PO Q4H 05/11/21 05/11/21 History Past Med/Surg History Medical History Abnormal uterine bleeding Anxiety Bilateral pulmonary embolism 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 with unrestricted hearing of right ear Constipation Depression Fibromyalgia GERD (gastroesophageal reflux disease) Hypothyroidism On anticoagulant therapy on eliquis Post traumatic stress disorder Pulmonary embolism diagnosed 10/12/18 after hysterectomy currently on eliquis Sciatica LLE Surgical History History of esophagogastroduodenoscopy (EGD) History of hysterectomy History of tonsillectomy and adenoidectomy Hx of appendectomy Hx of carpal tunnel repair right Hx of cholecystectomy 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19, 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 Nausea and vomiting after administration of anesthetic agent Family History Father Family history of diabetes mellitus Family hx colonic polyps Family/Other Family history of diabetes mellitus 1st cousin Mother Family hx colonic polyps Other No family history of adverse response to anesthesia Social History Smoking Status: Never smoker Second Hand Exposure: No; Hx Alcohol Use: No Hx Substance Use: No Preferred Language: Guamanian Communication Ability: Effective Chiller Hand Required: No Beliefs That Will Affect Care: None Current Living Situation: Spouse and Family Current Living Situation Comment: Lives with and 2 adult kids Feels Safe at Home: Yes Assistive Devices: None Review of Systems Review of Systems: As per HPI, all 10 systems reviewed, all other ROS negative Physical Exam Physical Exam: GENERAL: Slightly uncomfortable, no respiratory distress SKIN: Normal color, warm HEENT: Bespectacled, [place] palpebral conjunctivae, no ptosis, dry buccal mucosa NECK : Supple, no tenderness CHEST : CTA, no tenderness HEART : RRR, no obvious murmurs ABDOMEN: Some distention, hypogastric tenderness EXTREMITIES : No LE swelling/tenderness, no other conspicuous deformities noted NEUROLOGIC : Coherent, no facial asymmetry, no other gross focality Results & Data Results & Data ([facility]) Vital Signs (Past 12 Hours) Vital Signs Temp Pulse Resp BP Pulse Ox 05/11/21 22:00 86 16 129/79 97 05/11/21 21:30 86 13 144/94 H 98 05/11/21 21:02 15 135/77 97 05/11/21 20:45 15 96 05/11/21 16:13 37.1 C 99 H 17 119/86 97 Laboratory Results Laboratory Results WBC 13.79 K/uL (4.8-10.8) H 05/11/21 18:10 RBC 4.82 M/uL (4.2-5.4) 05/11/21 18:10 Hgb 14.1 g/dL (12.0-16.0) 05/11/21 18:10 Hct 42.0 % (37-47) 05/11/21 18:10 MCV 87.1 fL (80-100) 05/11/21 18:10 MCH 29.3 pg (25-34) 05/11/21 18:10 MCHC 33.6 g/dL (32-36) 05/11/21 18:10 RDW Std Deviation 43.1 fL (36.4-46.3) 05/11/21 18:10 RDW Coeff of Lorri 13.4 % (11.5-14.5) 05/11/21 18:10 Plt Count 340 K/uL (130-400) 05/11/21 18:10 MPV 10.4 fL (7.4-10.4) 05/11/21 18:10 Immature Gran % (Auto) 0.2 % 05/11/21 18:10 Neut % (Auto) 66.5 % 05/11/21 18:10 Lymph % (Auto) 25.6 % 05/11/21 18:10 [place] % (Auto) 7.0 % 05/11/21 18:10 Eos % (Auto) 0.5 % 05/11/21 18:10 Baso % (Auto) 0.2 % 05/11/21 18:10 Neut # (Auto) 9.16 K/uL (1.4-6.5) H 05/11/21 18:10 Lymph # (Auto) 3.53 K/uL (1.2-3.4) H 05/11/21 18:10 [place] # (Auto) 0.97 K/uL (0.11-0.59) H 05/11/21 18:10 Eos # (Auto) 0.07 K/uL (0-0.5) 05/11/21 18:10 Baso # (Auto) 0.03 K/uL (0-0.2) 05/11/21 18:10 Immature Gran # (Auto) 0.03 K/uL (0.00-0.02) H 05/11/21 18:10 Sodium 134 mmol/L (136-145) L 05/11/21 18:10 Potassium 4.8 mmol/L (3.5-5.1) 05/11/21 18:10 Chloride 103 mmol/L (98-107) 05/11/21 18:10 Carbon Dioxide 27 mmol/L (21-32) 05/11/21 18:10 Anion Gap 4.0 (3-11) 05/11/21 18:10 BUN 15 mg/dl (7-18) 05/11/21 18:10 Creatinine 0.66 mg/dl (0.6-1.2) 05/11/21 18:10 Est Cr Clr Drug Dosing 95.9 ml/min 05/11/21 18:10 Est GFR ( Amer) 116.9 ml/min 05/11/21 18:10 Est GFR (Non-Af Amer) 100.9 ml/min 05/11/21 18:10 BUN/Creatinine Ratio 22.3 (10-20) H 05/11/21 18:10 Glucose 93 mg/dl (70-99) 05/11/21 18:10 Calcium 9.7 mg/dl (8.5-10.1) 05/11/21 18:10 Magnesium 2.1 mg/dl (1.8-2.4) 05/11/21 18:10 Total Bilirubin 0.4 mg/dl (0.2-1) 05/11/21 18:10 AST 22 U/L (15-37) 05/11/21 18:10 ALT 31 U/L (12-78) 05/11/21 18:10 Alkaline Phosphatase 84 U/L (45-117) 05/11/21 18:10 Total Protein 7.6 gm/dl (6.4-8.2) 05/11/21 18:10 Albumin 3.4 gm/dl (3.4-5.0) 05/11/21 18:10 Globulin 4.2 gm/dl (2.5-4.0) H 05/11/21 18:10 Albumin/Globulin Ratio 0.8 (0.9-2) L 05/11/21 18:10 Lipase 144 U/L (73-393) 05/11/21 18:10 Urine Color Yellow 05/11/21 18:00 Urine Appearance Clear (Clear) 05/11/21 18:00 Urine pH 5.0 (4.5-7.5) 05/11/21 18:00 Ur Specific [place] 1.017 (1.000-1.030) 05/11/21 18:00 Urine Protein Negative (Negative) 05/11/21 18:00 Urine Glucose (UA) Negative (Negative) 05/11/21 18:00 Urine Ketones Negative (Negative) 05/11/21 18:00 Urine Blood 1+ (Negative) H 05/11/21 18:00 Urine Nitrite Negative (Negative) 05/11/21 18:00 Urine Bilirubin Negative (Negative) 05/11/21 18:00 Urine Urobilinogen Negative (Negative) 05/11/21 18:00 Ur Leukocyte Esterase Negative (Negative) 05/11/21 18:00 Urine WBC (Auto) 1-5 /hpf (0-5) 05/11/21 18:00 Urine RBC (Auto) 0-4 /hpf (0-4) 05/11/21 18:00 U Hyaline Cast (Auto) 0 /lpf (0-5) 05/11/21 18:00 U Epithel Cells (Auto) 10-20 /lpf (0-5) H 05/11/21 18:00 Urine Bacteria (Auto) Negative (Negative) 05/11/21 18:00 SARS-CoV-2, RNA, NAAT NEGATIVE (NEGATIVE) 05/11/21 Unknown Impressions Abdomen/Pelvis CT 05/11/21 20:[address] WITH IV CONTRAST CT DOSE: 305.45 mGy.cm HISTORY: Acute left lower quadrant abdominal pain worsening LLQ pain eval for perf/abscess TECHNIQUE: Multiaxial CT images of the abdomen and pelvis were performed following the IV administration of 95 cc of Optiray, A dose lowering technique was utilized adhering to the principles of ALARA. COMPARISON STUDY: CT abdomen and pelvis 05/01/2021 FINDINGS: The imaged inferior cardiac chambers are unremarkable. Clear lung bases. Unchanged 1.4 cm hypodense focus of the spleen, favored to be benign. Unremarkable pancreas and adrenal glands. Cholecystectomy. Mild biliary ductal dilation is likely secondary to reservoir effect. Patent portal vein. No hydronephrosis. Symmetric enhancement of the kidneys. Subcentimeter hypodense focus of the inferior pole right kidney, likely represents a cyst however is too small to characterize. Unremarkable urinary bladder. Hysterectomy. 1.2 cm peripherally enhancing cystic structure of the left adnexum is unchanged. Aorta and IVC are unremarkable. No adenopathy. No bowel obstruction. Colonic diverticulosis. Acute diverticulitis of the descending sigmoid junction associated wall thickening and pericolonic inflammation has progressively worsened from prior. Punctate foci of extraluminal air noted on image 301 of series 3 compatible with microperforation. No abscess or fistula identified. Fecal and fluid-filled distention of the cecum. Reported appendectomy. Unremarkable soft tissues. No acute fracture. Degenerative changes of the spine, pelvis and hips. IMPRESSION: 1. Progressively worsened acute diverticulitis of the descending sigmoid junction with mild microperforation, new from 05/01/2021. No abscess. 2. No bowel obstruction. 3. Cholecystectomy. 4. Additional findings as above. ACT 112: Negative or not required by law. The above report was generated using voice recognition software. It may contain grammatical, syntax or spelling errors. Electronically signed by: Fan Rosas M.D. 05/11/2021 9:07 PM
[2021-05-12] MEDS ORDERED: KETOROLAC TROMETHAMINE 15 MG/ML VIAL IV ONE (03:19)
[2021-05-12] MEDS ORDERED: LORazepam 0.5 MG/1 ML VIAL IV PRN (04:37)
[2021-05-12] MEDS: MoRPHine SULFATE 4 MG/ML 1 ML CARP\\VIAL IV PRN ×4 (04:56→21:41)
[2021-05-12] MEDS: PROMETHAZINE HCL 12.5 MG in SODIUM CHLORIDE 0.9% 50 ML IV PRN ×3 (05:23→18:05)
[2021-05-12] MEDS: D5W AND NSS 1,000 ML IV SCH ×2 (05:26→17:36)
[2021-05-12] MEDS: SODIUM CHLORIDE 0.9% 1000ML 1,000 ML IV SCH (05:28)
[2021-05-12] MEDS ORDERED: ERTAPENEM CONSULT ACTIVE PRN (06:00)
--- NOTE | 2021-05-12 08:07 | Surgery Progress Note ---
Date of Service May 12, 2021 Assessment & Plan (1) Diverticulitis of colon with perforation: Plan: Patient here with diverticulitis with microperforation, no abscess Labs pending, WBC yesterday 13. Vital signs are stable, afebrile On exam patient's abdomen is soft, with tenderness in the LLQ Agree with ongoing conservative management, NPO for bowel rest, IVF, and IVF abx No plans for surgical intervention at this time, we will continue to follow closely Admission and Anticipated Discharge Date Admission Date: May 12, 2021 Supervising Physician Co-Signing Physician Notes Pnt seen and examined, labs and imaging reviewed, agree with above. 55 y/o female with diverticulitis with contained microperforation, vs stable, wbc slightly elevated. abd ttp in LLQ. cont iv abx, npo, ivfs. No surgical intervention at this time. surgery will follow. Subjective Patient feels about the same as last night. Rates her pain about a 6/10. Reports some mild nausea, no emesis. Was passing some flatus last night, not yet today. Physical Exam Physical Exam: awake/alert Gastrointestinal (Abdomen): Inspection/Auscultation: abdomen not distended Percussion/Palpation: + abdomen tender (in LLQ) and abdomen soft Results & Data ([facility]) Vital Signs (Past 12 Hours) Vital Signs Temp Pulse Pulse Resp BP BP Pulse Ox 05/12/21 07:22 36.5 C 74 18 125/80 98 05/12/21 05:05 37.0 C 85 18 105/65 96 05/11/21 22:00 86 16 129/79 97 05/11/21 21:30 86 13 144/94 H 98 05/11/21 21:02 15 135/77 97 05/11/21 20:45 15 96 PG Care Time/CCT Total # of Minutes Spent Total Time Spent with Patient: Total time spent is greater than 50% in coordination of care (as documented) at patient's floor/unit and/or counseling patient: Coding Level of Care Code 56661 Subseq Hosp Care Lvl 1 Diagnoses Diverticulitis of colon with perforation K57.20
[2021-05-12] MEDS ORDERED: CONSULT PHARMACY SCH (09:00)
[2021-05-12 09:24] LABS: Basophils # (auto) 0.01 K/uL (0-0.2); Basophils % (auto) 0.1 %; Eosinophils # (auto) 0.07 K/uL (0-0.5); Eosinophils % (auto) 0.9 %; Hematocrit (blood only) 37.1 % (37-47); Hemoglobin 12.1 g/dL (12.0-16.0); Immature Granulocytes # (auto) 0.01 K/uL (0.00-0.02); Immature Granulocytes % (auto) 0.1 %; Lymphocytes # (auto) 2.68 K/uL (1.2-3.4); Lymphocytes % (auto) 36.3 %; Mean Corpuscular Hemoglobin 28.8 pg (25-34); Mean Corpuscular Hgb Conc 32.6 g/dL (32-36); Mean Corpuscular Volume 88.3 fL (80-100); Monocytes # (auto) 0.46 K/uL (0.11-0.59); Monocytes % (auto) 6.2 %; Neutrophils # (auto) 4.16 K/uL (1.4-6.5); Neutrophils % (auto) 56.4 %; Platelet Count 238 K/uL (130-400); RDW Coefficient of Variation 13.4 % (11.5-14.5); RDW Standard Deviation 43.1 fL (36.4-46.3); White Blood Count 7.39 K/uL (4.8-10.8)
[2021-05-12] MEDS: KETOROLAC TROMETHAMINE 15 MG/ML VIAL IV PRN ×2 (09:45→15:05)
[2021-05-12] MEDS: ENOXAPARIN INJ 40 MG/0.4 ML SYR SQ SCH (09:46)
[2021-05-12 10:27] LABS: BUN Creatinine Ratio 14.2 (10-20); Calcium 8.2 mg/dl (8.5-10.1); Creatinine Clr Calc Pharmacy 82.2 ml/min; Est GFR (African American) 110.8 ml/min; Est GFR (Non-African American) 95.6 ml/min
--- NOTE | 2021-05-12 12:57 | Hospitalist Progress Note ---
Date of Service May 12, 2021 Assessment & Plan (1) Diverticulitis of large intestine with complication: (2) Lower abdominal pain: Plan: Diverticulitis of colon with microperforation Recurrent disease Failed outpatient treatment No signs or symptoms of sepsis Admit to [facility] General surgery on board, appreciate input Bowel rest IV fluids Analgesia and antiemetics NPO - per surg ok to resume essential meds IV ertapenem due to failed outpatient Cipro Flagyl and allergies Continue conservative treatment for now given hx of Cdiff, per outpt notes GI recommends daily oral vanco for prevention History of postoperative PE in 2019 Lovenox SQ for DVT prophylaxis Encourage ambulation Hypothyroidism resume levothyroxine and cytomel Anxiety/mood disorder/PTSD mood stable, continue desvenlafaxine, fluvoxamine and clonazepam Dispo: med/surg, not stable for discharge, expect to remain hospitalized next 1- 2 days PCP: Lorena FULL CODE Pt was seen and examined in collaboration with Dr. Garcia, please see addendum Admission and Anticipated Discharge Date Admission Date: May 12, 2021 Supervising Physician Co-Signing Physician Notes Patient seen and examined by me, care coordinated with Alvaro Nickerson PA-C. Please refer to her note above for further detail. Patient seen in follow-up of diverticulitis, with microperforation. Currently patient is lying in bed, in no acute distress. She reports abdominal discomfort, especially in her left lower quadrant. at the bedside, updated. She is otherwise awake alert oriented answering questions appropriately. Heart sounds regular. Lung sounds clear to auscultation bilaterally without any wheezing rhonchi or crackles. Abdomen is soft, tender to palpation especially in left lower quadrant. Denies any fevers chills. She is passing flatus. No BM. Continue IV antibiotics, IV fluids analgesia. Surgery following closely. Zion Garcia MD Subjective Patient was seen and examined in room 379. Follow-up acute diverticulitis with microperforation. She continues complain of left lower quadrant pain with occasional radiation to right lower quadrant. Pain is currently 6 out of 10. She continues to have nausea but no vomiting. She is passing flatus but no BM. She denies melena or hematochezia. She remains n.p.o. She denies fever, chills, sweats, chest pain or shortness of breath. Review of Systems Review of Systems: All systems reviewed & are unremarkable except as noted in HPI & below Physical Exam Physical Exam: Gen: WD/WN, NAD, A&O x3 HEENT: Normocephalic, atraumatic, conjunctivae moist, sclerae anicteric, mucous membranes moist. Lung: Clear to Auscultation bilaterally, no wheezes/rales/rhonchi Heart: Regular rate, regular rhythm, no murmurs, rubs, or gallops Abdomen: Soft, tender to palp LLQ with referred pain, ND +BS x 4 Extremities: No edema Skin: Warm, no rash, negative turgor. Results & Data Results & Data ([facility]) Vital Signs (Past 12 Hours) Vital Signs Temp Pulse Resp BP Pulse Ox 05/12/21 07:22 36.5 C 74 18 125/80 98 05/12/21 05:05 37.0 C 85 18 105/65 96 Laboratory Results Short CBC 05/11/21 05/12/21 Range/Units 18:10 08:43 WBC 13.79 H 7.39 (4.8-10.8) K/uL Hgb 14.1 12.1 (12.0-16.0) g/dL Hct 42.0 37.1 (37-47) % Plt Count 340 238 (130-400) K/uL BMP 05/11/21 05/12/21 18:10 08:43 Sodium 134 L 142 D Potassium 4.8 4.0 D Chloride 103 110 H Carbon Dioxide 27 25 BUN 15 10 D Creatinine 0.66 0.72 Glucose 93 88 Calcium 9.7 8.2 L D Liver Function 05/11/21 Range/Units 18:10 Total Bilirubin 0.4 (0.2-1) mg/dl AST 22 (15-37) U/L ALT 31 (12-78) U/L Alkaline Phosphatase 84 (45-117) U/L Albumin 3.4 (3.4-5.0) gm/dl Urine 05/11/21 Range/Units 18:00 Urine Color Yellow Urine Appearance Clear (Clear) Urine pH 5.0 (4.5-7.5) Ur Specific [place] 1.017 (1.000-1.030) Urine Protein Negative (Negative) Urine Glucose (UA) Negative (Negative) Medications Administered Current Inpatient Medications Enoxaparin Sodium (Enoxaparin Inj 40 Mg/0.4 Ml Syr) [address] [facility] Stop: 06/11/21 08:59 Last Admin: 05/12/21 09:46 Dose: 40 mg Documented by: Ertapenem (Ertapenem Consult Active) 1 ea N/A UD PRN PRN Reason: Consult Stop: 06/11/21 05:59 Dextrose/Sodium Chloride (D5w And Nss) 1,000 mls @ 75 mls/hr IV .[id number] [facility] Stop: 06/11/21 04:36 Last Admin: 05/12/21 05:26 Dose: 75 mls/hr Documented by: Promethazine HCl 12.5 mg/ (Sodium Chloride) 50.5 mls @ 202 mls/hr IV Q6H PRN PRN Reason: Nausea And Vomiting Stop: 06/11/21 04:36 Last Infusion: 05/12/21 13:00 Dose: Infused Documented by: Lorazepam (Ativan) 0.5 mg in 1 mls @ 1 mls/min IV Q4H PRN PRN Reason: Anxiety/Agitation Stop: 06/11/21 04:36 Acetaminophen (Ofirmev) 1,000 mg in 100 mls @ 400 mls/hr IV Q8H PRN PRN Reason: fever/pain Stop: 05/15/21 04:36 Ertapenem 1,000 mg/ Sodium (Chloride) 60 mls @ 100 mls/hr IV Q24H [facility] Stop: 05/22/21 21:59 Ketorolac Tromethamine (Ketorolac Tromethamine 15 Mg/Ml Vial) 15 mg IV Q6H PRN PRN Reason: Pain Stop: 05/17/21 04:36 Last Admin: 05/12/21 09:45 Dose: 15 mg Documented by: Morphine Sulfate (Morphine Sulfate 4 Mg/Ml 1 Ml Carp\Vial) 4 mg IV Q6H PRN PRN Reason: Pain Stop: 05/26/21 04:36 Last Admin: 05/12/21 11:50 Dose: 4 mg Documented by:
[2021-05-12] MEDS: RASPBERRY SYRUP 5 ML UDP PO SCH (15:34)
[2021-05-12] MEDS: VANCOMYCIN HCL 125 MG/2.5ML SOLN PO SCH (15:34)
[2021-05-12] MEDS ORDERED: [UNRECOGNIZED DRUG - OTHER] SCH (16:00)
--- NOTE | 2021-05-12 18:13 | XRay Report ---
KUB HISTORY: Left lower quadrant abdominal pain. COMPARISON: Chest and abdominal series 12/18/2018. Abdomen and pelvis CT 05/11/2021. FINDINGS: Nondilated gas-filled loops of large and small bowel are seen throughout the abdomen. No ev idence for bowel obstruction. Prior cholecystectomy. The patient's known acute diverticulitis with mi croperforation is not well visualized by this modality. No renal calculi. No ureteral calculi. IMPRESSION: 1. No evidence for bowel obstruction. 2. The patient's known acute diverticulitis with microperforation is not well visualized by this moda lity. ACT 112: Negative or not required by law. Electronically signed by: Jordan Morgan M.D. 05/12/2021 6:12 PM
[2021-05-12] MEDS: ACETAMINOPHEN 1,000 MG/100 ML VIAL IV PRN (20:07)
[2021-05-12] MEDS: LIOTHYRONINE SODIUM 5 MCG TAB PO SCH (20:13)
[2021-05-12] MEDS: clonazePAM 0.25 MG TAB PO SCH (21:40)
[2021-05-12] MEDS: ERTAPENEM SODIUM 1,000 MG in SODIUM CHLORIDE 0.9% 50 ML IV SCH (21:41)
[2021-05-12] MEDS ORDERED: ERTAPENEM SODIUM 1,000 MG in SYRINGE 0 ML IV SCH (22:00)
[2021-05-13] MEDS: PROMETHAZINE HCL 12.5 MG in SODIUM CHLORIDE 0.9% 50 ML IV PRN ×3 (01:06→17:53)
[2021-05-13] MEDS: KETOROLAC TROMETHAMINE 15 MG/ML VIAL IV PRN ×3 (01:07→18:00)
[2021-05-13] MEDS: LEVOTHYROXINE SODIUM 75 MCG TABLET PO SCH (05:19)
[2021-05-13] MEDS: MoRPHine SULFATE 4 MG/ML 1 ML CARP\\VIAL IV PRN ×4 (05:19→18:36)
--- NOTE | 2021-05-13 05:30 | Surgery Progress Note ---
Date of Service May 13, 2021 Assessment & Plan (1) Diverticulitis: Plan: Patient has been admitted to the hospital in the hospital service. We recommend continuing treatment as follows: IV fluid for hydration Bowel rest with n.p.o. status Analgesics Antiemetics Continue antibiotics: She is receiving ertapenem Consideration will be given to advancing the patient's diet once further clinical improvement is noted. pt continues to have pain in LLQ. states it has never left since her ER visit on APR 21. this is her first course of IV antibiotics. Has been here less than 2 days. WBC ok and afebrile. continue NPO/IV antibiotics. hopefully shows some clinical improvement in next 24 hours . will continue to follow closely. Admission and Anticipated Discharge Date Admission Date: May 12, 2021 Subjective Patient is resting in bed. She has intermittent nausea without vomiting. She denies any fevers, shakes, chills. She notes that she has not had any bowel movements since admission to the hospital. She continues to have pain greatest in the left lower quadrant with a small amount of improvement. Physical Exam Gastrointestinal (Abdomen): Abdomen is soft and nondistended. There is no rebound tenderness or guarding however patient does have pain with palpation in the left lower quadrant. Results & Data ([facility]) Vital Signs (Past 12 Hours) Vital Signs Temp Pulse Resp BP Pulse Ox 05/12/21 22:40 36.7 C 65 14 111/75 96 PG Care Time/CCT Total # of Minutes Spent Total Time Spent with Patient: Total time spent is greater than 50% in coordination of care (as documented) at patient's floor/unit and/or counseling patient: Coding Level of Care Code 36372 Subseq Hosp Care Lvl 2 Diagnoses Diverticulitis K57.92
[2021-05-13] MEDS: D5W AND NSS 1,000 ML IV SCH ×2 (08:00→21:02)
[2021-05-13] MEDS: fluvoxaMINE MALEATE 50 MG TAB PO SCH (08:05)
[2021-05-13] MEDS: LIOTHYRONINE SODIUM 5 MCG TAB PO SCH ×2 (08:05→22:05)
[2021-05-13] MEDS: ENOXAPARIN INJ 40 MG/0.4 ML SYR SQ SCH (08:05)
[2021-05-13] MEDS: DESVENLAFAXINE SUCCINATE ER TABLET PO SCH (08:06)
--- NOTE | 2021-05-13 08:22 | Hospitalist Progress Note ---
Date of Service May 13, 2021 Assessment & Plan (1) Diverticulitis of large intestine with complication: (2) Lower abdominal pain: Plan: Diverticulitis of colon with microperforation Recurrent disease Failed outpatient treatment No signs or symptoms of sepsis Admit to [facility] General surgery on board, appreciate input Bowel rest IV fluids Analgesia and antiemetics NPO - per surg ok to resume essential meds IV ertapenem due to failed outpatient Cipro Flagyl and allergies Continue conservative treatment for now given hx of Cdiff, per outpt notes GI recommends daily oral vanco for prevention History of postoperative PE in 2019 Lovenox SQ for DVT prophylaxis Encourage ambulation Hypothyroidism resume levothyroxine and cytomel Anxiety/mood disorder/PTSD mood stable, continue desvenlafaxine, fluvoxamine and clonazepam Dispo: med/surg, not stable for discharge, expect to remain hospitalized next 1-2 days PCP: Dr. Carrillo FULL CODE Admission and Anticipated Discharge Date Admission Date: May 12, 2021 Subjective Patient seen in follow-up of diverticulitis with microperforation She continues to complain of left lower quadrant pain She is passing flatus but no BM. She remains n.p.o. She denies fever, chills, sweats, chest pain or shortness of breath. Review of Systems Review of Systems: All systems reviewed & are unremarkable except as noted in Subjective Physical Exam Physical Exam: Gen: WD/WN, NAD, A &O x3 HEENT: Normo cephalic, atraumat ic, conjunctivae m oist, sclerae anic teric, mucous memb ranes moist. Lung: Clear to Ausculta tion bilaterally, no wheezes/rales/r honchi Heart: Regu lar rate, regular rhythm, no murmurs , rubs, or gallops Abdomen: Soft, te nder to palp LLQ w ith referred pain, ND +BS x 4 Extrem ities: No edema Sk in: Warm, no rash, negative turgor. Results & Data Results & Data ([facility]) Vital Signs (Past 12 Hours) Vital Signs Temp Pulse Resp BP Pulse Ox 05/12/21 22:40 36.7 C 65 14 111/75 96
[2021-05-13 08:28] LABS: Hemoglobin 11.5 g/dL (12.0-16.0); Mean Corpuscular Hemoglobin 28.5 pg (25-34); Mean Corpuscular Hgb Conc 31.9 g/dL (32-36); Mean Corpuscular Volume 89.1 fL (80-100); Platelet Count 215 K/uL (130-400); RDW Coefficient of Variation 13.1 % (11.5-14.5); RDW Standard Deviation 42.9 fL (36.4-46.3); Red Blood Count 4.04 M/uL (4.2-5.4); White Blood Count 4.46 K/uL (4.8-10.8)
[2021-05-13 09:03] LABS: BUN Creatinine Ratio 16.4 (10-20); Calcium 7.9 mg/dl (8.5-10.1); Creatinine Clr Calc Pharmacy 120.7 ml/min; Est GFR (African American) 128.9 ml/min; Est GFR (Non-African American) 111.2 ml/min; Potassium 4.3 mmol/L (3.5-5.1)
[2021-05-13 09:04] LABS: Phosphorus 3.1 mg/dl (2.5-4.9)
[2021-05-13 09:09] LABS: Basophils # (auto) 0.01 K/uL (0-0.2); Basophils % (auto) 0.2 %; Eosinophils # (auto) 0.09 K/uL (0-0.5); Lymphocytes # (auto) 2.42 K/uL (1.2-3.4); Lymphocytes % (auto) 54.3 %; Monocytes # (auto) 0.41 K/uL (0.11-0.59); Monocytes % (auto) 9.2 %; Neutrophils # (auto) 1.53 K/uL (1.4-6.5); Neutrophils % (auto) 34.3 %
[2021-05-13] MEDS: VANCOMYCIN HCL 125 MG/2.5ML SOLN PO SCH (10:52)
[2021-05-13] MEDS: RASPBERRY SYRUP 5 ML UDP PO SCH (10:53)
[2021-05-13] MEDS: clonazePAM 0.25 MG TAB PO SCH (21:01)
[2021-05-13] MEDS: ERTAPENEM SODIUM 1,000 MG in SODIUM CHLORIDE 0.9% 50 ML IV SCH (21:01)
[2021-05-14] MEDS ORDERED: Nursing to Pharmacy Communication SCH (02:00)
[2021-05-14] MEDS: ACETAMINOPHEN 1,000 MG/100 ML VIAL IV PRN (05:38)
[2021-05-14] MEDS: LEVOTHYROXINE SODIUM 50 MCG TABLET PO SCH (05:38)
[2021-05-14] MEDS: D5W AND NSS 1,000 ML IV SCH ×2 (08:00→20:49)
--- NOTE | 2021-05-14 08:04 | Hospitalist Progress Note ---
Date of Service May 14, 2021 Assessment & Plan (1) Diverticulitis of large intestine with complication: (2) Lower abdominal pain: Plan: Diverticulitis of colon with microperforation Recurrent disease Failed outpatient treatment No signs or symptoms of sepsis Admitted to [facility] General surgery on board, appreciate input Bowel rest IV fluids Analgesia and antiemetics NPO - per surg ok to resume essential meds IV ertapenem due to failed outpatient Cipro Flagyl and allergies Continue conservative treatment for now given hx of Cdiff, per outpt notes GI recommends daily oral vanco for prevention History of postoperative PE in 2019 Lovenox SQ for DVT prophylaxis Encourage ambulation Hypothyroidism - levothyroxine and cytomel Anxiety/mood disorder/PTSD mood stable, continue desvenlafaxine, fluvoxamine and clonazepam Dispo: med/surg PCP: Dr. Carrillo FULL CODE Admission and Anticipated Discharge Date Admission Date: May 12, 2021 Subjective Patient seen in follow-up of diverticulitis with microperforation She continues to have left lower quadrant pain She is passing flatus but no BM. She remains n.p.o. She denies fever, chills, sweats, chest pain or shortness of breath. Surgery following closely Review of Systems Review of Systems: All systems reviewed & are unremarkable except as noted in Subjective Physical Exam Physical Exam: Gen: WD/WN, NAD, A &O x3 HEENT: Normo cephalic, atraumat ic, conjunctivae m oist, sclerae anic teric, mucous memb ranes moist. Lung: Clear to Ausculta tion bilaterally, no wheezes/rales/r honchi Heart: Regu lar rate, regular rhythm, no murmurs , rubs, or gallops Abdomen: Soft, te nder to palp LLQ w ith referred pain, ND +BS x 4 Extrem ities: No edema Sk in: Warm, dry Results & Data Results & Data ([facility]) Vital Signs (Past 12 Hours) Vital Signs Temp Pulse Resp BP BP Pulse Ox 05/14/21 07:44 36.6 C 80 17 109/70 98 05/13/21 22:55 36.8 C 68 16 104/67 96 Laboratory Results 05/14/21 05/14/21 Range/Units 09:36 09:36 WBC 5.46 (4.8-10.8) K/uL RBC 4.41 (4.2-5.4) M/uL Hgb 13.0 (12.0-16.0) g/dL Hct 38.1 (37-47) % MCV 86.4 (80-100) fL MCH 29.5 (25-34) pg MCHC 34.1 (32-36) g/dL RDW Std Deviation 40.0 (36.4-46.3) fL RDW Coeff of Lorri 12.4 (11.5-14.5) % Plt Count 237 (130-400) K/uL MPV 9.8 (7.4-10.4) fL Immature Gran % (Auto) 0.2 % Neut % (Auto) 68.4 % Lymph % (Auto) 26.7 % Davis % (Auto) 3.8 % Eos % (Auto) 0.5 % Baso % (Auto) 0.4 % Neut # (Auto) 3.73 (1.4-6.5) K/uL Lymph # (Auto) 1.46 (1.2-3.4) K/uL Davis # (Auto) 0.21 (0.11-0.59) K/uL Eos # (Auto) 0.03 (0-0.5) K/uL Baso # (Auto) 0.02 (0-0.2) K/uL Immature Gran # (Auto) 0.01 (0.00-0.02) K/uL Sodium 136 (136-145) mmol/L Potassium 3.9 (3.5-5.1) mmol/L Chloride 107 (98-107) mmol/L Carbon Dioxide 24 (21-32) mmol/L Anion Gap 5.0 (3-11) BUN 11 (7-18) mg/dl Creatinine 0.59 L (0.6-1.2) mg/dl Est Cr Clr Drug Dosing 100.3 ml/min Est GFR ( Amer) 121.3 ml/min Est GFR (Non-Af Amer) 104.6 ml/min BUN/Creatinine Ratio 18.4 (10-20) Glucose 79 (70-99) mg/dl Calcium 8.7 (8.5-10.1) mg/dl Phosphorus 2.7 (2.5-4.9) mg/dl Magnesium 2.0 (1.8-2.4) mg/dl Specimen Hemolysis Medications Administered Current Inpatient Medications Clonazepam (Clonazepam 0.25 Mg Tab) 0.25 mg PO HS [facility] Stop: 06/11/21 20:59 Last Admin: 05/13/21 21:01 Dose: 0.25 mg Documented by: Desvenlafaxine Succinate (Desvenlafaxine Succinate Er Tablet) 1 tab PO QAM [facility] Stop: 06/12/21 08:59 Last Admin: 05/13/21 08:06 Dose: 1 tab Documented by: Enoxaparin Sodium (Enoxaparin Inj 40 Mg/0.4 Ml Syr) 40 mg SQ QAM [facility] Stop: 06/11/21 08:59 Last Admin: 05/13/21 08:05 Dose: 40 mg Documented by: Ertapenem (Ertapenem Consult Active) 1 ea N/A UD PRN PRN Reason: Consult Stop: 06/11/21 05:59 Fluvoxamine Maleate (Fluvoxamine Maleate 50 Mg Tab) [facility] Stop: 06/12/21 08:59 Last Admin: 05/13/21 08:05 Dose: 25 mg Documented by: Dextrose/Sodium Chloride (D5w And Nss) 1,000 mls @ 75 mls/hr IV .[id number] [facility] Stop: 06/11/21 04:36 Last Admin: 05/14/21 08:00 Dose: 75 mls/hr Documented by: Promethazine HCl 12.5 mg/ (Sodium Chloride) 50.5 mls @ 202 mls/hr IV Q6H PRN PRN Reason: Nausea And Vomiting Stop: 06/11/21 04:36 Last Infusion: 05/13/21 18:16 Dose: Infused Documented by: Lorazepam (Ativan) 0.5 mg in 1 mls @ 1 mls/min IV Q4H PRN PRN Reason: Anxiety/Agitation Stop: 06/11/21 04:36 Acetaminophen (Ofirmev) 1,000 mg in 100 mls @ 400 mls/hr IV Q8H PRN PRN Reason: fever/pain Stop: 05/15/21 04:36 Last Infusion: 05/14/21 06:06 Dose: Infused Documented by: Ertapenem 1,000 mg/ Sodium (Chloride) 60 mls @ 100 mls/hr IV Q24H [facility] Stop: 05/22/21 21:59 Last Infusion: 05/13/21 21:59 Dose: Infused Documented by: Ketorolac Tromethamine (Ketorolac Tromethamine 15 Mg/Ml Vial) 15 mg IV Q6H PRN PRN Reason: Pain Stop: 05/17/21 04:36 Last Admin: 05/13/21 18:00 Dose: 15 mg Documented by: Levothyroxine Sodium (Levothyroxine Sodium 50 Mcg Tablet) 50 mcg PO Q2D@0630 [facility] Stop: 06/13/21 06:29 Last Admin: 05/14/21 05:38 Dose: 50 mcg Documented by: Levothyroxine Sodium (Levothyroxine Sodium 75 Mcg Tablet) 75 mcg PO Q2D@0630 [facility] Stop: 06/12/21 06:29 Last Admin: 05/13/21 05:19 Dose: 75 mcg Documented by: Liothyronine Sodium (Liothyronine Sodium 5 Mcg Tab) 5 mcg PO BID@0200,0900 [facility] Stop: 06/13/21 08:59 Morphine Sulfate (Morphine Sulfate 4 Mg/Ml 1 Ml Carp\Vial) 3 mg IV Q4H PRN PRN Reason: Pain Stop: 05/26/21 04:36 Last Admin: 05/13/21 18:36 Dose: 3 mg Documented by: Raspberry (Raspberry Syrup 5 Ml Udp) 5 ml PO DAILY [facility] Stop: 05/22/21 14:59 Last Admin: 05/13/21 10:53 Dose: 5 ml Documented by: Vancomycin HCl (Vancomycin Hcl 125 Mg/2.5ml Soln) 125 mg PO DAILY [facility] Stop: 05/22/21 14:59 Last Admin: 05/13/21 10:52 Dose: 125 mg Documented by:
[2021-05-14] MEDS ORDERED: LIOTHYRONINE SODIUM 5 MCG TAB PO SCH (09:00)
[2021-05-14] MEDS: ENOXAPARIN INJ 40 MG/0.4 ML SYR SQ SCH (09:24)
[2021-05-14] MEDS: fluvoxaMINE MALEATE 50 MG TAB PO SCH (09:24)
[2021-05-14] MEDS: VANCOMYCIN HCL 125 MG/2.5ML SOLN PO SCH (09:25)
[2021-05-14] MEDS: RASPBERRY SYRUP 5 ML UDP PO SCH (09:25)
[2021-05-14] MEDS: LIOTHYRONINE SODIUM 5 MCG TAB PO SCH ×2 (09:25→13:35)
[2021-05-14] MEDS: DESVENLAFAXINE SUCCINATE ER TABLET PO SCH (09:25)
[2021-05-14 10:01] LABS: Mean Corpuscular Hgb Conc 34.1 g/dL (32-36); Mean Platelet Volume 9.8 fL (7.4-10.4); Platelet Count 237 K/uL (130-400)
[2021-05-14 10:21] LABS: Basophils # (auto) 0.02 K/uL (0-0.2); Basophils % (auto) 0.4 %; Eosinophils # (auto) 0.03 K/uL (0-0.5); Eosinophils % (auto) 0.5 %; Hematocrit (blood only) 38.1 % (37-47); Immature Granulocytes # (auto) 0.01 K/uL (0.00-0.02); Immature Granulocytes % (auto) 0.2 %; Lymphocytes # (auto) 1.46 K/uL (1.2-3.4); Lymphocytes % (auto) 26.7 %; Mean Corpuscular Hemoglobin 29.5 pg (25-34); Mean Corpuscular Volume 86.4 fL (80-100); Monocytes # (auto) 0.21 K/uL (0.11-0.59); Monocytes % (auto) 3.8 %; Neutrophils # (auto) 3.73 K/uL (1.4-6.5); Neutrophils % (auto) 68.4 %; RDW Coefficient of Variation 12.4 % (11.5-14.5); Red Blood Count 4.41 M/uL (4.2-5.4); White Blood Count 5.46 K/uL (4.8-10.8)
[2021-05-14 10:33] LABS: BUN Creatinine Ratio 18.4 (10-20); Calcium 8.7 mg/dl (8.5-10.1); Creatinine Clr Calc Pharmacy 100.3 ml/min; Est GFR (African American) 121.3 ml/min; Est GFR (Non-African American) 104.6 ml/min; Phosphorus 2.7 mg/dl (2.5-4.9); Potassium 3.9 mmol/L (3.5-5.1)
--- NOTE | 2021-05-14 10:44 | Surgery Progress Note ---
Date of Service May 14, 2021 Assessment & Plan (1) Diverticulitis of large intestine with complication: Plan: Hopefully she is finally turning the corner. I still do not recommend initiating a diet. If she continues to do well I will start clear liquids tomorrow. Admission and Anticipated Discharge Date Admission Date: May 12, 2021 Subjective Patient seen. She is finally starting to feel better. The pain is much improved from yesterday. Physical Exam Physical Exam: Alert and oriented. No acute distress Abdomen is soft. She has minimal tenderness in the suprapubic and left lower quadrant but this is improved. There is no guarding. Results & Data ([facility]) Vital Signs (Past 12 Hours) Vital Signs Temp Pulse Resp BP BP Pulse Ox 05/14/21 07:44 36.6 C 80 17 109/70 98 05/13/21 22:55 36.8 C 68 16 104/67 96 PG Care Time/CCT Total # of Minutes Spent Total Time Spent with Patient: Total time spent is greater than 50% in coordination of care (as documented) at patient's floor/unit and/or counseling patient: Coding Level of Care Code 25162 Subseq Hosp Care Lvl 2 Diagnoses Diverticulitis of large intestine with complication K57.32
[2021-05-14] MEDS: KETOROLAC TROMETHAMINE 15 MG/ML VIAL IV PRN ×2 (12:41→23:21)
[2021-05-14] MEDS: PROMETHAZINE HCL 12.5 MG in SODIUM CHLORIDE 0.9% 50 ML IV PRN (12:42)
[2021-05-14] MEDS ORDERED: FEXOFENADINE 60 MG TAB PO PRN (13:10)
[2021-05-14] MEDS ORDERED: FEXOFENADINE 60 MG TAB PO ONE (13:30)
[2021-05-14] MEDS: MoRPHine SULFATE 4 MG/ML 1 ML CARP\\VIAL IV PRN ×3 (13:35→20:52)
[2021-05-14] MEDS: clonazePAM 0.25 MG TAB PO SCH (20:52)
[2021-05-14] MEDS: ERTAPENEM SODIUM 1,000 MG in SODIUM CHLORIDE 0.9% 50 ML IV SCH (23:08)
[2021-05-15] MEDS: PROMETHAZINE HCL 12.5 MG in SODIUM CHLORIDE 0.9% 50 ML IV PRN ×3 (01:41→17:51)
[2021-05-15] MEDS: MoRPHine SULFATE 4 MG/ML 1 ML CARP\\VIAL IV PRN ×4 (01:44→20:38)
[2021-05-15] MEDS: LEVOTHYROXINE SODIUM 75 MCG TABLET PO SCH (06:02)
[2021-05-15 07:41] LABS: Hemoglobin 12.3 g/dL (12.0-16.0); Mean Corpuscular Hemoglobin 28.9 pg (25-34); Mean Corpuscular Hgb Conc 34.2 g/dL (32-36); Mean Corpuscular Volume 84.7 fL (80-100); Mean Platelet Volume 9.8 fL (7.4-10.4); Platelet Count 211 K/uL (130-400); RDW Coefficient of Variation 12.5 % (11.5-14.5); RDW Standard Deviation 38.5 fL (36.4-46.3); Red Blood Count 4.25 M/uL (4.2-5.4); White Blood Count 3.69 K/uL (4.8-10.8)
[2021-05-15 08:00] LABS: BUN Creatinine Ratio 12.4 (10-20); Est GFR (African American) 127.2 ml/min; Est GFR (Non-African American) 109.8 ml/min; Magnesium 1.7 mg/dl (1.8-2.4); Potassium 3.5 mmol/L (3.5-5.1)
[2021-05-15 08:01] LABS: Phosphorus 2.5 mg/dl (2.5-4.9)
[2021-05-15] MEDS: ENOXAPARIN INJ 40 MG/0.4 ML SYR SQ SCH (08:38)
[2021-05-15] MEDS: LIOTHYRONINE SODIUM 5 MCG TAB PO SCH ×2 (08:39→14:14)
[2021-05-15] MEDS: RASPBERRY SYRUP 5 ML UDP PO SCH (08:39)
[2021-05-15] MEDS: fluvoxaMINE MALEATE 50 MG TAB PO SCH (08:39)
[2021-05-15] MEDS: DESVENLAFAXINE SUCCINATE ER TABLET PO SCH (08:40)
[2021-05-15] MEDS: VANCOMYCIN HCL 125 MG/2.5ML SOLN PO SCH (08:47)
[2021-05-15] MEDS: KETOROLAC TROMETHAMINE 15 MG/ML VIAL IV PRN ×2 (08:47→15:06)
[2021-05-15] MEDS: D5W AND NSS 1,000 ML IV SCH (08:51)
--- NOTE | 2021-05-15 11:52 | Surgery Progress Note ---
Date of Service May 15, 2021 Assessment & Plan (1) Diverticulitis of colon with perforation: Plan: Pt endorses some more pain this AM, crampy in nature WBC 3 and patient has stable vitals and is afebrile Unclear if related to constipation or worsening diverticulitis Will repeat CT a/p today for further evaluation If worsening may consider surgical intervention in next 24-48 hours...if stable may start clear liquids and mild laxative Continue IV abx as above. her pain has recurred. "crampy" pain in LLQ and RLQ. wbc normal. afebrile. repeat CT scan today and will make rec's accordingly. may need surgical intervention if no improvement clinically soon. Admission and Anticipated Discharge Date Admission Date: May 12, 2021 Subjective Pt endorses some more pain this AM than yesterday, describes it as more crampy. Also mild nausea, no vomiting. No BM yet. Physical Exam Physical Exam: awake/alert Gastrointestinal (Abdomen): soft, lower abdominal discomfort to palpation Results & Data ([facility]) Vital Signs (Past 12 Hours) Vital Signs Temp Pulse Resp BP Pulse Ox 05/15/21 08:14 37.0 C 68 16 121/79 97 PG Care Time/CCT Total # of Minutes Spent Total Time Spent with Patient: Total time spent is greater than 50% in coordination of care (as documented) at patient's floor/unit and/or counseling patient: Coding Level of Care Code 57058 Subseq Hosp Care Lvl 3 Diagnoses Diverticulitis of colon with perforation K57.20
--- NOTE | 2021-05-15 12:19 | CT Scan Report ---
CT SCAN OF THE ABDOMEN AND PELVIS WITHOUT IV CONTRAST CLINICAL HISTORY: Generalized abdominal pain. Diverticulitis. COMPARISON STUDY: Abdominal CT dated 05/11/2021. TECHNIQUE: CT scan of the abdomen and pelvis is performed from the lung bases to the proximal femora. Images are reviewed in the axial, sagittal, and coronal planes. IV contrast was not administered for this examination. Note that the examination was performed in significantly suboptimal fashion withou t oral and IV contrast. A dose lowering technique was utilized adhering to the principles of ALARA. CT DOSE: 297.28 mGy.cm FINDINGS: Lung bases: The heart is normal in size and without pericardial effusion. There is trace left pleural effusion and bibasilar atelectasis. Liver: The unenhanced liver is normal in size, contour, and attenuation. There is no intrahepatic harris iary ductal dilatation. Gallbladder: Surgically absent noting clips in the gallbladder fossa. Spleen: Normal in size and attenuation. A 1.5 cm splenic hypodensity is unchanged. Pancreas: The unenhanced pancreas is mildly atrophic and grossly unremarkable. Adrenal glands: Unremarkable. Kidneys: The unenhanced kidneys are normal in size and without hydronephrosis. There are no renal enrrique culi identified. There is no evidence of contour deforming renal mass lesion. Abdominal vasculature: The abdominal aorta is normal in course and caliber. Bowel: There is mild colonic diverticulosis with persistent diverticulitis of the distal descending/p roximal sigmoid colon. This has continued to improve as compared to 05/11/2021. Holly fluid collectio n is seen to suggest abscess on this unenhanced examination. No bowel obstruction is seen. The append ix is not identified. Peritoneum: There is no intraperitoneal free air or abdominal ascites. Lymphadenopathy: None. Pelvic viscera: The bladder is normal as visualized. The uterus is surgically absent. No adnexal lesi on is seen. Skeletal structures: No lytic or blastic lesions are seen. IMPRESSION: 1. Suboptimal examination without oral and IV contrast. 2. Colonic diverticulosis with persistent acute diverticulitis of the distal descending/proximal sigm oid colon. This has continued to improve as compared to 05/11/2021. 3. No intraperitoneal free air is identified and there is no organized fluid collection to suggest ab scess on this unenhanced examination. ACT 112: Negative or not required by law. Electronically signed by: Abe Gallardo M.D. 05/15/2021 12:18 PM
[2021-05-15] MEDS ORDERED: POTASSIUM CHLORIDE CRTAB 20 MEQ TABCR PO STA (13:42)
--- NOTE | 2021-05-15 13:53 | Hospitalist Progress Note ---
Date of Service May 15, 2021 Assessment & Plan (1) Diverticulitis of large intestine with complication: (2) Lower abdominal pain: Plan: Diverticulitis of colon with microperforation Recurrent disease Failed outpatient treatment No signs or symptoms of sepsis Admitted to [facility] General surgery on board, appreciate input Bowel rest IV fluids Analgesia and antiemetics NPO - per surg ok to resume essential meds IV ertapenem due to failed outpatient Cipro Flagyl and allergies Continue conservative treatment for now given hx of Cdiff, per outpt notes GI recommends daily oral vanco for prevention 05/15/21 - Patient feeling more cramps in her lower abdomen Repeat CT abd./pelvis (05/15) - 1. Suboptimal examination without oral and IV contrast. 2. Colonic diverticulosis with persistent acute diverticulitis of the distal descending/proximal sigmoid colon. This has continued to improve as compared to 05/11/2021. 3. No intraperitoneal free air is identified and there is no organized fluid collection to suggest abscess on this unenhanced examination. Per surgery, "crampiness" and pain may be secondary to constipation. Start diet and stool softeners Hypokalemia, hypomagnesemia -Secondary to n.p.o. status -Replace and monitor History of postoperative PE in 2019 Lovenox SQ for DVT prophylaxis Encourage ambulation Hypothyroidism - levothyroxine and cytomel Anxiety/mood disorder/PTSD mood stable, continue desvenlafaxine, fluvoxamine and clonazepam Dispo: med/surg PCP: Dr. Carrillo FULL CODE Admission and Anticipated Discharge Date Admission Date: May 12, 2021 Subjective Patient seen in follow-up of diverticulitis with microperforation She continues to have left lower quadrant pain, says it feels more crampy and also now in RLQ She is passing flatus but no BM. She remains n.p.o. She denies fever, chills, sweats, chest pain or shortness of breath. Surgery following closely - ordering CT abdomen to evaluate Review of Systems Review of Systems: All systems reviewed & are unremarkable except as noted in Subjective Physical Exam Physical Exam: Gen: WD/WN, NAD, A &O x3 HEENT: Normo cephalic, atraumat ic, conjunctivae m oist, sclerae anic teric, mucous memb ranes moist. Lung: Clear to Ausculta tion bilaterally, no wheezes/rales/r honchi Heart: Regu lar rate, regular rhythm, no murmurs , rubs, or gallops Abdomen: Soft, te nder to palp LLQ a nd RLQ ND +BS x 4 Extremities: No ed andi Skin: Warm, dr gifty Results & Data Results & Data ([facility]) Vital Signs (Past 12 Hours) Vital Signs Temp Pulse Resp BP Pulse Ox 05/15/21 08:14 37.0 C 68 16 121/79 97 Laboratory Results 05/15/21 05/15/21 Range/Units 07:21 07:21 WBC 3.69 L (4.8-10.8) K/uL RBC 4.25 (4.2-5.4) M/uL Hgb 12.3 (12.0-16.0) g/dL Hct 36.0 L (37-47) % MCV 84.7 (80-100) fL MCH 28.9 (25-34) pg MCHC 34.2 (32-36) g/dL RDW Std Deviation 38.5 (36.4-46.3) fL RDW Coeff of Lorri 12.5 (11.5-14.5) % Plt Count 211 (130-400) K/uL MPV 9.8 (7.4-10.4) fL Sodium 141 (136-145) mmol/L Potassium 3.5 (3.5-5.1) mmol/L Chloride 112 H (98-107) mmol/L Carbon Dioxide 21 (21-32) mmol/L Anion Gap 9.0 (3-11) BUN 6 L D (7-18) mg/dl Creatinine 0.51 L (0.6-1.2) mg/dl Est Cr Clr Drug Dosing 116.0 ml/min Est GFR ( Amer) 127.2 ml/min Est GFR (Non-Af Amer) 109.8 ml/min BUN/Creatinine Ratio 12.4 (10-20) Glucose 86 (70-99) mg/dl Calcium 8.0 L (8.5-10.1) mg/dl Phosphorus 2.5 (2.5-4.9) mg/dl Magnesium 1.7 L (1.8-2.4) mg/dl Medications Administered Current Inpatient Medications Bisacodyl (Bisacodyl 10 Mg Supp) 10 mg [place] BID PRN PRN Reason: Constipation Stop: 06/14/21 12:46 Clonazepam (Clonazepam 0.25 Mg Tab) 0.25 mg PO HS [facility] Stop: 06/11/21 20:59 Last Admin: 05/14/21 20:52 Dose: 0.25 mg Documented by: Desvenlafaxine Succinate (Desvenlafaxine Succinate Er Tablet) [facility] [place]: 06/12/21 08:59 Last Admin: 05/15/21 08:40 Dose: 1 tab Documented by: Enoxaparin Sodium (Enoxaparin Inj 40 Mg/0.4 Ml Syr) 40 mg SQ QAM [facility] Stop: 06/11/21 08:59 Last Admin: 05/15/21 08:38 Dose: 40 mg Documented by: Ertapenem (Ertapenem Consult Active) 1 ea N/A UD PRN PRN Reason: Consult Stop: 06/11/21 05:59 Fexofenadine HCl (Fexofenadine 60 Mg Tab) 60 mg PO BID PRN PRN Reason: Allergy Symptoms Stop: 06/13/21 20:59 Fluvoxamine Maleate (Fluvoxamine Maleate 50 Mg Tab) 25 mg PO QAM [facility] Stop: 06/12/21 08:59 Last Admin: 05/15/21 08:39 Dose: 25 mg Documented by: Dextrose/Sodium Chloride (D5w And Nss) 1,000 mls @ 75 mls/hr IV .[id number] [facility] Stop: 06/11/21 04:36 Last Admin: 05/15/21 08:51 Dose: 75 mls/hr Documented by: Promethazine HCl 12.5 mg/ (Sodium Chloride) 50.5 mls @ 202 mls/hr IV Q6H PRN PRN Reason: Nausea And Vomiting Stop: 06/11/21 04:36 Last Infusion: 05/15/21 09:20 Dose: Infused Documented by: Lorazepam (Ativan) 0.5 mg in 1 mls @ 1 mls/min IV Q4H PRN PRN Reason: Anxiety/Agitation Stop: 06/11/21 04:36 Ertapenem 1,000 mg/ Sodium (Chloride) 60 mls @ 100 mls/hr IV Q24H [facility] Stop: 05/22/21 21:59 Last Infusion: 05/14/21 23:47 Dose: Infused Documented by: Magnesium Sulfate/Dextrose (Magnesium Sulfate / D5w) 1 gm in 100 mls @ 50 mls/hr IV ONE ONE Stop: 05/15/21 15:59 Ketorolac Tromethamine (Ketorolac Tromethamine 15 Mg/Ml Vial) 15 mg IV Q6H PRN PRN Reason: Pain Stop: 05/17/21 04:36 Last Admin: 05/15/21 08:47 Dose: 15 mg Documented by: Levothyroxine Sodium (Levothyroxine Sodium 50 Mcg Tablet) 50 mcg PO Q2D@0630 [facility] Stop: 06/13/21 06:29 Last Admin: 05/14/21 05:38 Dose: 50 mcg Documented by: Levothyroxine Sodium (Levothyroxine Sodium 75 Mcg Tablet) 75 mcg PO Q2D@0630 [facility] Stop: 06/12/21 06:29 Last Admin: 05/15/21 06:02 Dose: 75 mcg Documented by: Liothyronine Sodium (Liothyronine Sodium 5 Mcg Tab) 5 mcg PO BID@0900,1400 [facility] Stop: 06/13/21 08:59 Last Admin: 05/15/21 08:39 Dose: 5 mcg Documented by: Morphine Sulfate (Morphine Sulfate 4 Mg/Ml 1 Ml Carp\\Vial) 3 mg IV Q4H PRN PRN Reason: Pain Stop: 05/26/21 04:36 Last Admin: 05/15/21 11:54 Dose: 3 mg Documented by: Raspberry (Raspberry Syrup 5 Ml Udp) 5 ml PO DAILY [facility] Stop: 05/22/21 14:59 Last Admin: 05/15/21 08:39 Dose: 5 ml Documented by: Vancomycin HCl (Vancomycin Hcl 125 Mg/2.5ml Soln) 125 mg PO DAILY [facility] Stop: 05/22/21 14:59 Last Admin: 05/15/21 08:47 Dose: 125 mg Documented by:
[2021-05-15] MEDS ORDERED: MAGNESIUM SULFATE / D5W 1 GM/100 ML BAG IV ONE (14:00)
[2021-05-15] MEDS: bisacodyL 10 MG SUPP PR PRN (14:14)
[2021-05-15] MEDS ORDERED: PROMETHAZINE HCL 6.25 MG in SODIUM CHLORIDE 0.9% 50 ML IV STA (18:08)
[2021-05-15] MEDS: clonazePAM 0.25 MG TAB PO SCH (21:43)
[2021-05-15] MEDS: ERTAPENEM SODIUM 1,000 MG in SODIUM CHLORIDE 0.9% 50 ML IV SCH (22:06)
--- NOTE | 2021-05-16 06:09 | Hospitalist Progress Note ---
Date of Service May 16, 2021 Assessment & Plan (1) Diverticulitis of large intestine with complication: (2) Lower abdominal pain: Plan: Diverticulitis of colon with microperforation Recurrent disease Failed outpatient treatment No signs or symptoms of sepsis Admitted to [facility] General surgery on board, appreciate input Bowel rest IV fluids Analgesia and antiemetics NPO - per surg ok to resume essential meds IV ertapenem due to failed outpatient Cipro Flagyl and allergies Continue conservative treatment for now given hx of Cdiff, per outpt notes GI recommends daily oral vanco for prevention 05/15/21 - Patient feeling more cramps in her lower abdomen Repeat CT abd./pelvis (05/15) - 1. Suboptimal examination without oral and IV contrast. 2. Colonic diverticulosis with persistent acute diverticulitis of the distal descending/proximal sigmoid colon. This has continued to improve as compared to 05/11/2021. 3. No intraperitoneal free air is identified and there is no organized fluid collection to suggest abscess on this unenhanced examination. Per surgery, "crampiness" and pain may be secondary to constipation. Started diet and stool softeners 05/16 -patient had several loose bowel movements since yesterday Hypokalemia, hypomagnesemia -Secondary to n.p.o. status -Replace and monitor History of postoperative PE in 2019 Lovenox SQ for DVT prophylaxis Encourage ambulation Hypothyroidism - levothyroxine and cytomel Anxiety/mood disorder/PTSD mood stable, continue desvenlafaxine, fluvoxamine and clonazepam Dispo: med/surg PCP: Dr. Carrillo FULL CODE Admission and Anticipated Discharge Date Admission Date: May 12, 2021 Subjective Patient seen in follow-up of diverticulitis with microperforation She continues to have left lower quadrant pain, "crampy feeling" and also now in RLQ She is passing flatus and had multiple loose stools since yesterday She is tolerating clear liquid diet - for now, will not advance She denies fever, chills, sweats, chest pain or shortness of breath. Surgery following closely - repeated CT abdomen yesterday to re-evaluate Review of Systems Review of Systems: All systems reviewed & are unremarkable except as noted in Subjective Physical Exam Physical Exam: Gen: WD/WN, NAD, A &O x3 HEENT: NC/AT , sclerae anicteri c, mucous membrane s moist. Lung: Danny ar to Auscultation bilaterally, no w heezes/rales/rhonc hi Heart: Regular rate, regular rhyt hm, no murmurs, ru bs, or gallops Abd omen: Soft, tender to palp LLQ and R LQ ND +BS x 4 Extr emities: No edema Skin: Warm, dry Results & Data Results & Data ([facility]) Vital Signs (Past 12 Hours) Vital Signs Temp Pulse Resp BP Pulse Ox 05/15/21 23:28 36.7 C 97 H 16 113/74 92 Laboratory Results 05/16/21 05/16/21 Range/Units 07:16 07:16 WBC 4.12 L (4.8-10.8) K/uL RBC 4.47 (4.2-5.4) M/uL Hgb 12.9 (12.0-16.0) g/dL Hct 37.7 (37-47) % MCV 84.3 (80-100) fL MCH 28.9 (25-34) pg MCHC 34.2 (32-36) g/dL RDW Std Deviation 38.3 (36.4-46.3) fL RDW Coeff of Lorri 12.5 (11.5-14.5) % Plt Count 224 (130-400) K/uL MPV 10.0 (7.4-10.4) fL Sodium 142 (136-145) mmol/L Potassium 3.6 (3.5-5.1) mmol/L Chloride 111 H (98-107) mmol/L Carbon Dioxide 23 (21-32) mmol/L Anion Gap 8.0 (3-11) BUN 4 L (7-18) mg/dl Creatinine 0.56 L (0.6-1.2) mg/dl Est Cr Clr Drug Dosing 105.6 ml/min Est GFR ( Amer) 123.4 ml/min Est GFR (Non-Af Amer) 106.5 ml/min BUN/Creatinine Ratio 7.1 L (10-20) Glucose 82 (70-99) mg/dl Calcium 8.2 L (8.5-10.1) mg/dl Phosphorus 2.4 L (2.5-4.9) mg/dl Magnesium 2.0 (1.8-2.4) mg/dl Medications Administered Current Inpatient Medications Bisacodyl (Bisacodyl 10 Mg Supp) 10 mg [place] BID PRN PRN Reason: Constipation Stop: 06/14/21 12:46 Last Admin: 05/16/21 09:35 Dose: 10 mg Documented by: Clonazepam (Clonazepam 0.25 Mg Tab) 0.25 mg PO HS [facility] Stop: 06/11/21 20:59 Last Admin: 05/15/21 21:43 Dose: 0.25 mg Documented by: Desvenlafaxine Succinate (Desvenlafaxine Succinate Er Tablet) [facility] [place] Stop: 06/12/21 08:59 Last Admin: 05/16/21 08:16 Dose: 1 tab Documented by: Enoxaparin Sodium (Enoxaparin Inj 40 Mg/0.4 Ml Syr) 40 mg SQ QAM [facility] Stop: 06/11/21 08:59 Last Admin: 05/16/21 08:16 Dose: 40 mg Documented by: Ertapenem (Ertapenem Consult Active) 1 ea N/A UD PRN PRN Reason: Consult Stop: 06/11/21 05:59 Fexofenadine HCl (Fexofenadine 60 Mg Tab) 60 mg PO BID PRN PRN Reason: Allergy Symptoms Stop: 06/13/21 20:59 Fluvoxamine Maleate (Fluvoxamine Maleate 50 Mg Tab) [facility] [place] Stop: 06/12/21 08:59 Last Admin: 05/16/21 08:15 Dose: 25 mg Documented by: Promethazine HCl 12.5 mg/ (Sodium Chloride) 50.5 mls @ 202 mls/hr IV Q6H PRN PRN Reason: Nausea And Vomiting Stop: 06/11/21 04:36 Last Infusion: 05/15/21 18:10 Dose: Infused Documented by: Lorazepam (Ativan) 0.5 mg in 1 mls @ 1 mls/min IV Q4H PRN PRN Reason: Anxiety/Agitation Stop: 06/11/21 04:36 Ertapenem 1,000 mg/ Sodium (Chloride) 60 mls @ 100 mls/hr IV Q24H [facility] Stop: 05/22/21 21:59 Last Infusion: 05/15/21 22:54 Dose: Infused Documented by: Ketorolac Tromethamine (Ketorolac Tromethamine 15 Mg/Ml Vial) 15 mg IV Q6H PRN PRN Reason: Pain Stop: 05/17/21 04:36 Last Admin: 05/15/21 15:06 Dose: 15 mg Documented by: Levothyroxine Sodium (Levothyroxine Sodium 50 Mcg Tablet) 50 mcg PO Q2D@0630 [facility] Stop: 06/13/21 06:29 Last Admin: 05/16/21 06:22 Dose: 50 mcg Documented by: Levothyroxine Sodium (Levothyroxine Sodium 75 Mcg Tablet) 75 mcg PO Q2D@0630 [facility] Stop: 06/12/21 06:29 Last Admin: 05/15/21 06:02 Dose: 75 mcg Documented by: Liothyronine Sodium (Liothyronine Sodium 5 Mcg Tab) 5 mcg PO BID@0900,1400 [facility] Stop: 06/13/21 08:59 Last Admin: 05/16/21 08:15 Dose: 5 mcg Documented by: Morphine Sulfate (Morphine Sulfate 4 Mg/Ml 1 Ml Carp\\Vial) 3 mg IV Q4H PRN PRN Reason: Pain Stop: 05/26/21 04:36 Last Admin: 05/15/21 20:38 Dose: 3 mg Documented by: Raspberry (Raspberry Syrup 5 Ml Udp) 5 ml PO DAILY [facility] Stop: 05/22/21 14:59 Last Admin: 05/16/21 08:15 Dose: 5 ml Documented by: Vancomycin HCl (Vancomycin Hcl 125 Mg/2.5ml Soln) 125 mg PO DAILY [facility] Stop: 05/22/21 14:59 Last Admin: 05/16/21 08:15 Dose: 125 mg Documented by:
[2021-05-16] MEDS: LEVOTHYROXINE SODIUM 50 MCG TABLET PO SCH (06:22)
[2021-05-16 07:54] LABS: Hematocrit (blood only) 37.7 % (37-47); Hemoglobin 12.9 g/dL (12.0-16.0); Mean Corpuscular Hemoglobin 28.9 pg (25-34); Mean Corpuscular Hgb Conc 34.2 g/dL (32-36); Mean Corpuscular Volume 84.3 fL (80-100); Platelet Count 224 K/uL (130-400); RDW Coefficient of Variation 12.5 % (11.5-14.5); RDW Standard Deviation 38.3 fL (36.4-46.3); Red Blood Count 4.47 M/uL (4.2-5.4); White Blood Count 4.12 K/uL (4.8-10.8)
[2021-05-16 08:14] LABS: BUN Creatinine Ratio 7.1 (10-20); Calcium 8.2 mg/dl (8.5-10.1); Creatinine Clr Calc Pharmacy 105.6 ml/min; Est GFR (African American) 123.4 ml/min; Est GFR (Non-African American) 106.5 ml/min; Potassium 3.6 mmol/L (3.5-5.1)
[2021-05-16 08:15] LABS: Phosphorus 2.4 mg/dl (2.5-4.9)
[2021-05-16] MEDS: LIOTHYRONINE SODIUM 5 MCG TAB PO SCH ×2 (08:15→13:04)
[2021-05-16] MEDS: RASPBERRY SYRUP 5 ML UDP PO SCH (08:15)
[2021-05-16] MEDS: fluvoxaMINE MALEATE 50 MG TAB PO SCH (08:15)
[2021-05-16] MEDS: VANCOMYCIN HCL 125 MG/2.5ML SOLN PO SCH (08:15)
[2021-05-16] MEDS: ENOXAPARIN INJ 40 MG/0.4 ML SYR SQ SCH (08:16)
[2021-05-16] MEDS: DESVENLAFAXINE SUCCINATE ER TABLET PO SCH (08:16)
[2021-05-16] MEDS: bisacodyL 10 MG SUPP PR PRN (09:35)
[2021-05-16] MEDS ORDERED: POTASSIUM CHLORIDE CRTAB 20 MEQ TABCR PO STA (09:47)
[2021-05-16] MEDS: KETOROLAC TROMETHAMINE 15 MG/ML VIAL IV PRN ×2 (10:23→22:28)
--- NOTE | 2021-05-16 11:08 | Surgery Progress Note ---
Date of Service May 16, 2021 Assessment & Plan (1) Diverticulitis of large intestine with complication: Plan: Slow improvement but she does seem to be improving. Her CT scan looks better she is afebrile with no leukocytosis. I think we should continue conservative management. I would like to keep her on clear liquids at this time rather than advancing. She does have concerns over C. difficile since she had this in the past. We will add a probiotic for her at this time. Admission and Anticipated Discharge Date Admission Date: May 12, 2021 Subjective Continues to have some mild generalized abdominal discomfort/cramping as well as some mild left lower quadrant diverticular type pain. This is improved from yesterday and she admittedly is feeling better than she was yesterday. CT scan showed persistent diverticulitis but some improvement in the inflammatory process. She continues to be afebrile with normal WBCs. She did have multiple loose bowel movements since yesterday. Physical Exam Constitutional: WD/WN, vitals as above no acute distress and not ill appearing Eyes: PERRL, conjunctivae normal, anicteric sclerae EOM intact bilaterally ENMT: external ear and nose normal, oropharynx normal Ears: no hearing impairment Neck: trachea midline, no thyromegaly Respiratory: normal respiratory effort; no respiratory distress and does not use accessory muscles Cardiovascular: Rate/Rhythm: regular rate and regular rhythm Gastrointestinal (Abdomen): Soft. Mild left lower quadrant tenderness. No guarding or rebound. Skin: no rashes, warm and dry Psychiatric: Orientation: alert, oriented x 3 and cooperative Results & Data ([facility]) Vital Signs (Past 12 Hours) Vital Signs Temp Pulse Resp BP Pulse Ox 05/16/21 07:13 36.7 C 63 16 125/79 98 05/15/21 23:28 36.7 C 97 H 16 113/74 92 PG Care Time/CCT Total # of Minutes Spent Total Time Spent with Patient: Total time spent is greater than 50% in coordination of care (as documented) at patient's floor/unit and/or counseling patient: Coding Level of Care Code 00448 Subseq Hosp Care Lvl 2 Diagnoses Diverticulitis of large intestine with complication K57.32
[2021-05-16] MEDS: ADVANCED PROBIOTIC 1250 MG CAPSULE PO SCH (13:04)
[2021-05-16] MEDS: MoRPHine SULFATE 4 MG/ML 1 ML CARP\\VIAL IV PRN (13:04)
[2021-05-16] MEDS: PROMETHAZINE HCL 12.5 MG in SODIUM CHLORIDE 0.9% 50 ML IV PRN (13:04)
[2021-05-16] MEDS: clonazePAM 0.25 MG TAB PO SCH (20:11)
[2021-05-16] MEDS: ERTAPENEM SODIUM 1,000 MG in SODIUM CHLORIDE 0.9% 50 ML IV SCH (22:25)
[2021-05-17] MEDS: LEVOTHYROXINE SODIUM 75 MCG TABLET PO SCH (06:15)
[2021-05-17 08:53] LABS: Hematocrit (blood only) 39.8 % (37-47); Hemoglobin 13.7 g/dL (12.0-16.0); Mean Corpuscular Hemoglobin 29.1 pg (25-34); Mean Corpuscular Hgb Conc 34.4 g/dL (32-36); Mean Corpuscular Volume 84.7 fL (80-100); Mean Platelet Volume 9.6 fL (7.4-10.4); Platelet Count 238 K/uL (130-400); RDW Coefficient of Variation 12.5 % (11.5-14.5); RDW Standard Deviation 39.3 fL (36.4-46.3); White Blood Count 4.52 K/uL (4.8-10.8)
[2021-05-17] MEDS: RASPBERRY SYRUP 5 ML UDP PO SCH (09:12)
[2021-05-17] MEDS: VANCOMYCIN HCL 125 MG/2.5ML SOLN PO SCH (09:12)
[2021-05-17] MEDS: LIOTHYRONINE SODIUM 5 MCG TAB PO SCH ×2 (09:12→14:06)
[2021-05-17] MEDS: ADVANCED PROBIOTIC 1250 MG CAPSULE PO SCH (09:13)
[2021-05-17] MEDS: fluvoxaMINE MALEATE 50 MG TAB PO SCH (09:13)
[2021-05-17] MEDS: DESVENLAFAXINE SUCCINATE ER TABLET PO SCH (09:14)
[2021-05-17] MEDS: ENOXAPARIN INJ 40 MG/0.4 ML SYR SQ SCH (09:14)
[2021-05-17 09:16] LABS: BUN Creatinine Ratio 6.9 (10-20); Calcium 8.8 mg/dl (8.5-10.1); Creatinine Clr Calc Pharmacy 88.3 ml/min; Est GFR (African American) 116.3 ml/min; Est GFR (Non-African American) 100.4 ml/min; Magnesium 1.9 mg/dl (1.8-2.4); Phosphorus 2.5 mg/dl (2.5-4.9); Potassium 4.1 mmol/L (3.5-5.1)
--- NOTE | 2021-05-17 10:37 | Hospitalist Progress Note ---
Date of Service May 17, 2021 Assessment & Plan (1) Diverticulitis of large intestine with complication: (2) Lower abdominal pain: Plan: Diverticulitis of colon with microperforation Recurrent disease Failed outpatient treatment No signs or symptoms of sepsis Admitted to [facility] General surgery on board, appreciate input Bowel rest IV fluids Analgesia and antiemetics NPO - per surg ok to resume essential meds IV ertapenem due to failed outpatient Cipro Flagyl and allergies Continue conservative treatment for now given hx of Cdiff, per outpt notes GI recommends daily oral vanco for prevention 05/15/21 - Patient feeling more cramps in her lower abdomen Repeat CT abd./pelvis (05/15) - 1. Suboptimal examination without oral and IV contrast. 2. Colonic diverticulosis with persistent acute diverticulitis of the distal descending/proximal sigmoid colon. This has continued to improve as compared to 05/11/2021. 3. No intraperitoneal free air is identified and there is no organized fluid collection to suggest abscess on this unenhanced examination. Per surgery, "crampiness" and pain may be secondary to constipation. Started diet and stool softeners 05/16 -patient had several loose bowel movements since yesterday 05/17 -patient seems to be improving, tolerating clear liquid diet, having bowel movements, advance to diet today Hypokalemia, hypomagnesemia -Secondary to n.p.o. status -Replace and monitor History of postoperative PE in 2019 Lovenox SQ for DVT prophylaxis Encourage ambulation Hypothyroidism - levothyroxine and cytomel Anxiety/mood disorder/PTSD mood stable, continue desvenlafaxine, fluvoxamine and clonazepam Dispo: med/surg PCP: Dr. Carrillo FULL CODE Admission and Anticipated Discharge Date Admission Date: May 12, 2021 Subjective Patient seen in follow-up of diverticulitis with microperforation She continues to have left lower quadrant discomfort, but overall is feeling better She is having bowel movements now and was advancing her diet this morning She denies fever, chills, sweats, chest pain or shortness of breath. Surgery following closely Review of Systems Review of Systems: All systems reviewed & are unremarkable except as noted in Subjective Physical Exam Physical Exam: Gen: WD/WN, NAD, A &O x3 HEENT: NC/AT , sclerae anicteri c, mucous membrane s moist. Lung: Danny ar to Auscultation bilaterally, no w heezes/rales/rhonc hi Heart: Regular rate, regular rhyt hm, no murmurs, ru bs, or gallops Abd omen: Soft, tender to palp LLQ and R LQ (improved) ND + BS x 4 Extremities : No edema Skin: W arm, dry Results & Data Results & Data ([facility]) Vital Signs (Past 12 Hours) Vital Signs Temp Pulse Resp BP Pulse Ox 05/17/21 06:35 36.4 C L 65 16 115/78 96 05/16/21 23:35 36.9 C 72 16 122/79 96 Laboratory Results 05/17/21 05/17/21 Range/Units 08:41 08:41 WBC 4.52 L (4.8-10.8) K/uL RBC 4.70 (4.2-5.4) M/uL Hgb 13.7 (12.0-16.0) g/dL Hct 39.8 (37-47) % MCV 84.7 (80-100) fL MCH 29.1 (25-34) pg MCHC 34.4 (32-36) g/dL RDW Std Deviation 39.3 (36.4-46.3) fL RDW Coeff of Lorri 12.5 (11.5-14.5) % Plt Count 238 (130-400) K/uL MPV 9.6 (7.4-10.4) fL Sodium 140 (136-145) mmol/L Potassium 4.1 (3.5-5.1) mmol/L Chloride 107 (98-107) mmol/L Carbon Dioxide 24 (21-32) mmol/L Anion Gap 9.0 (3-11) BUN 5 L (7-18) mg/dl Creatinine 0.67 (0.6-1.2) mg/dl Est Cr Clr Drug Dosing 88.3 ml/min Est GFR ( Amer) 116.3 ml/min Est GFR (Non-Af Amer) 100.4 ml/min BUN/Creatinine Ratio 6.9 L (10-20) Glucose 92 (70-99) mg/dl Calcium 8.8 (8.5-10.1) mg/dl Phosphorus 2.5 (2.5-4.9) mg/dl Magnesium 1.9 (1.8-2.4) mg/dl Medications Administered Current Inpatient Medications Bisacodyl (Bisacodyl 10 Mg Supp) 10 mg [place] BID PRN PRN Reason: Constipation Stop: 06/14/21 12:46 Last Admin: 05/16/21 09:35 Dose: 10 mg Documented by: Clonazepam (Clonazepam 0.25 Mg Tab) 0.25 mg PO HS [facility] Stop: 06/11/21 20:59 Last Admin: 05/16/21 20:11 Dose: 0.25 mg Documented by: Desvenlafaxine Succinate (Desvenlafaxine Succinate Er Tablet) [facility] Stop: 06/12/21 08:59 Last Admin: 05/17/21 09:14 Dose: 1 tab Documented by: Enoxaparin Sodium (Enoxaparin Inj 40 Mg/0.4 Ml Syr) 40 mg SQ QAM [facility] Stop: 06/11/21 08:59 Last Admin: 05/17/21 09:14 Dose: 40 mg Documented by: Ertapenem (Ertapenem Consult Active) 1 ea N/A UD PRN PRN Reason: Consult Stop: 06/11/21 05:59 Fexofenadine HCl (Fexofenadine 60 Mg Tab) 60 mg PO BID PRN PRN Reason: Allergy Symptoms Stop: 06/13/21 20:59 Fluvoxamine Maleate (Fluvoxamine Maleate 50 Mg Tab) 25 mg PO QAM [facility] Stop: 06/12/21 08:59 Last Admin: 05/17/21 09:13 Dose: 25 mg Documented by: Promethazine HCl 12.5 mg/ (Sodium Chloride) 50.5 mls @ 202 mls/hr IV Q6H PRN PRN Reason: Nausea And Vomiting Stop: 06/11/21 04:36 Last Infusion: 05/16/21 13:30 Dose: Infused Documented by: Lorazepam (Ativan) 0.5 mg in 1 mls @ 1 mls/min IV Q4H PRN PRN Reason: Anxiety/Agitation Stop: 06/11/21 04:36 Ertapenem 1,000 mg/ Sodium (Chloride) 60 mls @ 100 mls/hr IV Q24H [facility] Stop: 05/22/21 21:59 Last Infusion: 05/16/21 23:10 Dose: Infused Documented by: Lactobacillus Acidoph/Casei/Rhamnos (Advanced Probiotic 1250 Mg Capsule) 2 cap PO DAILY [facility] Stop: 06/15/21 10:59 Last Admin: 05/17/21 09:13 Dose: 2 cap Documented by: Levothyroxine Sodium (Levothyroxine Sodium 50 Mcg Tablet) 50 mcg PO Q2D@0630 [facility] Stop: 06/13/21 06:29 Last Admin: 05/16/21 06:22 Dose: 50 mcg Documented by: Levothyroxine Sodium (Levothyroxine Sodium 75 Mcg Tablet) 75 mcg PO Q2D@0630 [facility] Stop: 06/12/21 06:29 Last Admin: 05/17/21 06:15 Dose: 75 mcg Documented by: Liothyronine Sodium (Liothyronine Sodium 5 Mcg Tab) 5 mcg PO BID@0900,1400 [facility] Stop: 06/13/21 08:59 Last Admin: 05/17/21 09:12 Dose: 5 mcg Documented by: Morphine Sulfate (Morphine Sulfate 4 Mg/Ml 1 Ml Carp\\Vial) 3 mg IV Q4H PRN PRN Reason: Pain Stop: 05/26/21 04:36 Last Admin: 05/16/21 13:04 Dose: 3 mg Documented by: Raspberry (Raspberry Syrup 5 Ml Udp) 5 ml PO DAILY [facility] Stop: 05/22/21 14:59 Last Admin: 05/17/21 09:12 Dose: 5 ml Documented by: Vancomycin HCl (Vancomycin Hcl 125 Mg/2.5ml Soln) 125 mg PO DAILY [facility] Stop: 05/22/21 14:59 Last Admin: 05/17/21 09:12 Dose: 125 mg Documented by:
--- NOTE | 2021-05-17 12:35 | Surgery Progress Note ---
Date of Service May 17, 2021 Assessment & Plan (1) Diverticulitis of colon with perforation: Plan: 55 y/o female with improving diverticulitis. advance to low fiber continue abx cont vanc for cdiff prevention possible d/c tomorrow if tolerates and continues to improve f/u with GI as outpatient oral abx selection per primary team patient requesting antiemetics and tramadol along with vanc and oral abx at discharge f/u with surgery in future to discuss possible elective sigmoidectomy Admission and Anticipated Discharge Date Admission Date: May 12, 2021 Subjective 55 y/o female admitted with diverticulitis. Improvement, then over weekend had increased pain, repeat CT with improvement. WBC normal. Feeling much better, tolerated clears. Concerned about full liquids due to intolerance to dairy. Physical Exam Constitutional: WD/WN, vitals as above Gastrointestinal (Abdomen): Percussion/Palpation: + abdomen tender (minimal llq ttp) and abdomen soft; no guarding, abdomen not rigid and no hepatosplenomegaly Results & Data ([facility]) Vital Signs (Past 12 Hours) Vital Signs Temp Pulse Resp BP Pulse Ox 05/17/21 06:35 36.4 C L 65 16 115/78 96 Laboratory Results Laboratory Results - last 24 hr 05/17/21 05/17/21 08:41 08:41 WBC 4.52 L RBC 4.70 Hgb 13.7 Hct 39.8 MCV 84.7 MCH 29.1 MCHC 34.4 RDW Std Deviation 39.3 RDW Coeff of Lorri 12.5 Plt Count 238 MPV 9.6 Sodium 140 Potassium 4.1 Chloride 107 Carbon Dioxide 24 Anion Gap 9.0 BUN 5 L Creatinine 0.67 Est Cr Clr Drug Dosing 88.3 Est GFR ( Amer) 116.3 Est GFR (Non-Af Amer) 100.4 BUN/Creatinine Ratio 6.9 L Glucose 92 Calcium 8.8 Phosphorus 2.5 Magnesium 1.9 PG Care Time/CCT Total # of Minutes Spent Total Time Spent with Patient: Total time spent is greater than 50% in coordination of care (as documented) at patient's floor/unit and/or counseling patient: Coding Level of Care Code 48538 Inpt Consult Level 1 Diagnoses Diverticulitis of colon with perforation K57.20
[2021-05-17] MEDS: KETOROLAC TROMETHAMINE 15 MG/ML VIAL IV PRN ×2 (14:06→20:42)
[2021-05-17] MEDS: clonazePAM 0.25 MG TAB PO SCH (20:42)
[2021-05-17] MEDS: ERTAPENEM SODIUM 1,000 MG in SODIUM CHLORIDE 0.9% 50 ML IV SCH (21:19)
[2021-05-18] MEDS: PROMETHAZINE HCL 12.5 MG in SODIUM CHLORIDE 0.9% 50 ML IV PRN (02:19)
[2021-05-18] MEDS: KETOROLAC TROMETHAMINE 15 MG/ML VIAL IV PRN (02:19)
[2021-05-18] MEDS: LEVOTHYROXINE SODIUM 50 MCG TABLET PO SCH (06:17)
[2021-05-18 06:44] LABS: Hematocrit (blood only) 38.1 % (37-47); Mean Corpuscular Hemoglobin 28.8 pg (25-34); Mean Corpuscular Hgb Conc 34.1 g/dL (32-36); Mean Corpuscular Volume 84.3 fL (80-100); Platelet Count 206 K/uL (130-400); RDW Coefficient of Variation 12.7 % (11.5-14.5); RDW Standard Deviation 38.9 fL (36.4-46.3); Red Blood Count 4.52 M/uL (4.2-5.4); White Blood Count 4.61 K/uL (4.8-10.8)
[2021-05-18 07:13] LABS: Calcium 8.7 mg/dl (8.5-10.1); Magnesium 2.1 mg/dl (1.8-2.4); Potassium 3.6 mmol/L (3.5-5.1)
[2021-05-18 07:25] LABS: Phosphorus 3.1 mg/dl (2.5-4.9)
[2021-05-18] MEDS: LIOTHYRONINE SODIUM 5 MCG TAB PO SCH (07:38)
[2021-05-18] MEDS: VANCOMYCIN HCL 125 MG/2.5ML SOLN PO SCH (07:38)
[2021-05-18] MEDS: fluvoxaMINE MALEATE 50 MG TAB PO SCH (07:38)
[2021-05-18] MEDS: RASPBERRY SYRUP 5 ML UDP PO SCH (07:39)
[2021-05-18] MEDS: ENOXAPARIN INJ 40 MG/0.4 ML SYR SQ SCH (07:39)
[2021-05-18] MEDS: ADVANCED PROBIOTIC 1250 MG CAPSULE PO SCH (07:39)
[2021-05-18] MEDS: DESVENLAFAXINE SUCCINATE ER TABLET PO SCH (07:40)
--- NOTE | 2021-05-18 08:32 | Surgery Progress Note ---
Date of Service May 18, 2021 Assessment & Plan (1) Diverticulitis of colon with perforation: Plan: WBC 4.6, VSS and pt afebrile Tolerating low fiber diet Abdominal pain and symptoms continue to improve Okay for discharge to home today if cleared by medicine Complete course of po abx at home for diverticulitis F/U with GI as outpt Can f/u with surgery in future to discuss possible elective sigmoidectomy Admission and Anticipated Discharge Date Admission Date: May 12, 2021 Supervising Physician Co-Signing Physician Notes pnt S&E, agree with above. Resolving diverticulitis, tolerating low fiber. afvss, nad, aaox3. Mild ttp llq, no guarding. wbc normal. okay to d/c to home. f/u with gi, continue oral abx and oral vanc. asked for antiemetic and tramadol at discharge. f/u in general surgery clinic in future to discuss possible elective sigmoidectomy. Subjective Patient endorses some gas like pains, but otherwise says she is improving. She is tolerating a low fiber diet. No nausea/vomiting. She is passing BM's Physical Exam Physical Exam: awake/alert Gastrointestinal (Abdomen): Inspection/Auscultation: abdomen not distended Percussion/Palpation: + abdomen tender (mild discomfort to palpation in the llq) and abdomen soft Results & Data ([facility]) Vital Signs (Past 12 Hours) Vital Signs Temp Pulse Resp BP Pulse Ox 05/18/21 07:06 37.1 C 71 18 109/78 97 05/17/21 22:03 36.3 C L 84 16 122/82 97 PG Care Time/CCT Total # of Minutes Spent Total Time Spent with Patient: Total time spent is greater than 50% in coordination of care (as documented) at patient's floor/unit and/or counseling patient: Coding Level of Care Code 27304 Subseq Hosp Care Lvl 1 Diagnoses Diverticulitis of colon with perforation K57.20
--- NOTE | 2021-05-18 09:38 | Hospitalist Progress Note ---
Date of Service May 18, 2021 Assessment & Plan (1) Diverticulitis of large intestine with complication: (2) Lower abdominal pain: Plan: Diverticulitis of colon with microperforation Recurrent disease Failed outpatient treatment No signs or symptoms of sepsis Admitted to [facility] General surgery on board, appreciate input Bowel rest IV fluids Analgesia and antiemetics NPO - per surg ok to resume essential meds IV ertapenem due to failed outpatient Cipro Flagyl and allergies Continue conservative treatment for now given hx of Cdiff, per outpt notes GI recommends daily oral vanco for prevention 05/15/21 - Patient feeling more cramps in her lower abdomen Repeat CT abd./pelvis (05/15) - 1. Suboptimal examination without oral and IV contrast. 2. Colonic diverticulosis with persistent acute diverticulitis of the distal descending/proximal sigmoid colon. This has continued to improve as compared to 05/11/2021. 3. No intraperitoneal free air is identified and there is no organized fluid collection to suggest abscess on this unenhanced examination. Per surgery, "crampiness" and pain may be secondary to constipation. Started diet and stool softeners 05/16 -patient had several loose bowel movements since yesterday 05/17 -patient seems to be improving, tolerating clear liquid diet, having bowel movements, advance to diet today 05/18 -patient tolerating low fiber diet, plan for discharge and follow-up as outpatient Hypokalemia, hypomagnesemia -Secondary to poor oral intake -Replace and monitor History of postoperative PE in 2019 Lovenox SQ for DVT prophylaxis Encourage ambulation Hypothyroidism - levothyroxine and cytomel Anxiety/mood disorder/PTSD mood stable, continue desvenlafaxine, fluvoxamine and clonazepam Dispo: med/surg PCP: Dr. Carrillo FULL CODE Admission and Anticipated Discharge Date Admission Date: May 12, 2021 Subjective Patient seen in follow-up of diverticulitis with microperforation She continues to have left lower quadrant discomfort, but overall is feeling much better She is having bowel movements now and is tolerating low fiber diet. She denies fever, chills, sweats, chest pain or shortness of breath. Surgery following closely - okay for discharge and follow-up as outpatient Review of Systems Review of Systems: All systems reviewed & are unremarkable except as noted in Subjective Physical Exam Physical Exam: Gen: WD/WN, NAD, A &O x3 HEENT: NC/AT , sclerae anicteri c, mucous membrane s moist. Lung: Danny ar to Auscultation bilaterally, no w heezes/rales/rhonc hi Heart: Regular rate, regular rhyt hm, no murmurs, ru bs, or gallops Abd omen: Soft, tender to palp LLQ and R LQ (much improved) ND +BS x 4 Extrem ities: No edema Sk in: Warm, dry Results & Data Results & Data ([facility]) Vital Signs (Past 12 Hours) Vital Signs Temp Pulse Resp BP Pulse Ox 05/18/21 07:06 37.1 C 71 18 109/78 97 05/17/21 22:03 36.3 C L 84 16 122/82 97 Laboratory Results 05/18/21 05/18/21 Range/Units 06:03 06:03 WBC 4.61 L (4.8-10.8) K/uL RBC 4.52 (4.2-5.4) M/uL Hgb 13.0 (12.0-16.0) g/dL Hct 38.1 (37-47) % MCV 84.3 (80-100) fL MCH 28.8 (25-34) pg MCHC 34.1 (32-36) g/dL RDW Std Deviation 38.9 (36.4-46.3) fL RDW Coeff of Lorri 12.7 (11.5-14.5) % Plt Count 206 (130-400) K/uL MPV 10.0 (7.4-10.4) fL Sodium 141 (136-145) mmol/L Potassium 3.6 (3.5-5.1) mmol/L Chloride 110 H (98-107) mmol/L Carbon Dioxide 26 (21-32) mmol/L Anion Gap 5.0 (3-11) BUN 9 (7-18) mg/dl Creatinine 0.73 (0.6-1.2) mg/dl Est Cr Clr Drug Dosing 81.0 ml/min Est GFR ( Amer) 109.0 ml/min Est GFR (Non-Af Amer) 94.0 ml/min BUN/Creatinine Ratio 13.0 (10-20) Glucose 80 (70-99) mg/dl Calcium 8.7 (8.5-10.1) mg/dl Phosphorus 3.1 (2.5-4.9) mg/dl Magnesium 2.1 (1.8-2.4) mg/dl Medications Administered Current Inpatient Medications Bisacodyl (Bisacodyl 10 Mg Supp) 10 mg UT BID PRN PRN Reason: Constipation Stop: 06/14/21 12:46 Last Admin: 05/16/21 09:35 Dose: 10 mg Documented by: Clonazepam (Clonazepam 0.25 Mg Tab) 0.25 mg PO HS [facility] Stop: 06/11/21 20:59 Last Admin: 05/17/21 20:42 Dose: 0.25 mg Documented by: Desvenlafaxine Succinate (Desvenlafaxine Succinate Er Tablet) [facility] Stop: 06/12/21 08:59 Last Admin: 05/18/21 07:40 Dose: 1 tab Documented by: Enoxaparin Sodium (Enoxaparin Inj 40 Mg/0.4 Ml Syr) 40 mg SQ QAM [facility] Stop: 06/11/21 08:59 Last Admin: 05/18/21 07:39 Dose: 40 mg Documented by: Ertapenem (Ertapenem Consult Active) 1 ea N/A UD PRN PRN Reason: Consult Stop: 06/11/21 05:59 Fexofenadine HCl (Fexofenadine 60 Mg Tab) 60 mg PO BID PRN PRN Reason: Allergy Symptoms Stop: 06/13/21 20:59 Fluvoxamine Maleate (Fluvoxamine Maleate 50 Mg Tab) 25 mg PO QAM [facility] Stop: 06/12/21 08:59 Last Admin: 05/18/21 07:38 Dose: 25 mg Documented by: Promethazine HCl 12.5 mg/ (Sodium Chloride) 50.5 mls @ 202 mls/hr IV Q6H PRN PRN Reason: Nausea And Vomiting Stop: 06/11/21 04:36 Last Infusion: 05/18/21 02:40 Dose: Infused Documented by: Lorazepam (Ativan) 0.5 mg in 1 mls @ 1 mls/min IV Q4H PRN PRN Reason: Anxiety/Agitation Stop: 06/11/21 04:36 Ertapenem 1,000 mg/ Sodium (Chloride) 60 mls @ 100 mls/hr IV Q24H [facility] Stop: 05/22/21 21:59 Last Infusion: 05/17/21 22:02 Dose: Infused Documented by: Ketorolac Tromethamine (Ketorolac Tromethamine 15 Mg/Ml Vial) 15 mg IV Q6H PRN PRN Reason: Pain Stop: 05/22/21 13:00 Last Admin: 05/18/21 02:19 Dose: 15 mg Documented by: Lactobacillus Acidoph/Casei/Rhamnos (Advanced Probiotic 1250 Mg Capsule) 2 cap PO DAILY [facility] Stop: 06/15/21 10:59 Last Admin: 05/18/21 07:39 Dose: 2 cap Documented by: Levothyroxine Sodium (Levothyroxine Sodium 50 Mcg Tablet) 50 mcg PO Q2D@0630 [facility] Stop: 06/13/21 06:29 Last Admin: 05/18/21 06:17 Dose: 50 mcg Documented by: Levothyroxine Sodium (Levothyroxine Sodium 75 Mcg Tablet) 75 mcg PO Q2D@0630 [facility] Stop: 06/12/21 06:29 Last Admin: 05/17/21 06:15 Dose: 75 mcg Documented by: Liothyronine Sodium (Liothyronine Sodium 5 Mcg Tab) 5 mcg PO BID@0900,1400 [facility]EN[facility] Stop: 06/13/21 08:59 Last Admin: 05/18/21 07:38 Dose: 5 mcg Documented by: Morphine Sulfate (Morphine Sulfate 4 Mg/Ml 1 Ml Carp\\Vial) 3 mg IV Q4H PRN PRN Reason: Pain Stop: 05/26/21 04:36 Last Admin: 05/16/21 13:04 Dose: 3 mg Documented by: Raspberry (Raspberry Syrup 5 Ml Udp) 5 ml PO DAILY [facility]ENDA Stop: 05/22/21 14:59 Last Admin: 05/18/21 07:39 Dose: 5 ml Documented by: Vancomycin HCl (Vancomycin Hcl 125 Mg/2.5ml Soln) 125 mg PO DAILY [facility]ENDA Stop: 05/22/21 14:59 Last Admin: 05/18/21 07:38 Dose: 125 mg Documented by:
--- NOTE | 2021-05-18 10:43 | Discharge Summary ---
Date of Service May 18, 2021 Admission HPI Per Admitting Provider History obtained from patient and records. Medical history significant for recurrent diverticulitis, postop pulmonary embolism status post anticoagulation, fibromyalgia, anxiety/mood disorder/PTSD, hypothyroidism, otosclerosis as per records Last confinement 2018 for pulmonary embolism post robotic hysterectomy. Patient discharged and subsequently completed anticoagulation. 2 weeks ago, patient noted achy left lower abdominal discomfort reminiscent of diverticulitis pain. No fever, no chills. Patient evaluated at the ER. Imaging showed diverticulitis. Patient discharged home on Cipro Flagyl course. Patient returned to ER a few days later because of diarrhea. Repeat CAT scan showed improved diverticulitis. Outpatient colorectal surgery referral contemplated by PCP for recurrent diverticulitis. 2 days ago, patient noted worsening discomfort with nausea vomiting. No fever, no chills. Transient hematochezia. Patient given Ertapenem at the ER for complicated diverticulitis. 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 Admission Exam Per Admitting Provider GENERAL: Slightly uncomfortable, no respiratory distress SKIN: Normal color, warm HEENT: Bespectacled, [place] palpebral conjunctivae, no ptosis, dry buccal mucosa NECK : Supple, no tenderness CHEST : CTA, no tenderness HEART : RRR, no obvious murmurs ABDOMEN: Some distention, hypogastric tenderness EXTREMITIES : No LE swelling/tenderness, no other conspicuous deformities noted NEUROLOGIC : Coherent, no facial asymmetry, no other gross focality Principal Diagnosis Acute diverticulitis with microperforation Discharge Exam Gen: WD/WN, NAD, A&O x3 HEENT: NC/AT, sclerae anicteric, mucous membranes moist. Lung: Clear to Auscultation bilaterally, no wheezes/rales/rhonchi Heart: Regular rate, regular rhythm, no murmurs, rubs, or gallops Abdomen: Soft, tender to palp LLQ and RLQ (much improved) ND +BS x 4 Extremities: No edema Skin: Warm, dry Discharge Data Allergies Allergy/AdvReac Type Severity Reaction Status Date / Time codeine Allergy Intermediate Hives Verified 05/11/21 20:34 guaifenesin Allergy Intermediate Hives Verified 05/11/21 20:34 morphine Allergy Intermediate Hives Verified 05/11/21 20:34 pseudoephedrine Allergy Intermediate Hives Verified 05/11/21 20:34 Sulfa (Sulfonamide Allergy Intermediate Hives Verified 05/11/21 20:34 Antibiotics) thimerosal Allergy Intermediate ulcerations Verified 05/11/21 20:34 in eye Penicillins Allergy Mild Hives Verified 05/11/21 20:34 pentosan polysulfate sodium Allergy Unknown Unknown Verified 05/12/21 17:49 [From [facility]] Consultations 05/11/21 21:25 ED Decision to Admit Stat Ordered Studies 05/11/21 20:24 CT abd pelvis IV con only Stat IMPRESSION: 1. Progressively worsened acute diverticulitis of the descending sigmoid junction with mild microperforation, new from 05/01/2021. No abscess. 2. No bowel obstruction. 3. Cholecystectomy. 4. Additional findings as above. 05/15/21 10:26 CT abd pelvis wo con Stat IMPRESSION: 1. Suboptimal examination without oral and IV contrast. 2. Colonic diverticulosis with persistent acute diverticulitis of the distal descending/proximal sigmoid colon. This has continued to improve as compared to 05/11/2021. 3. No intraperitoneal free air is identified and there is no organized fluid collection to suggest abscess on this unenhanced examination. Hospital Course (1) Diverticulitis of large intestine with complication: (2) Lower abdominal pain: Diverticulitis of colon with microperforation Recurrent disease Failed outpatient treatment No signs or symptoms of sepsis Admitted to [facility] General surgery on board, appreciate input Bowel rest IV fluids Analgesia and antiemetics NPO - per surg ok to resume essential meds IV ertapenem due to failed outpatient Cipro Flagyl and allergies Continue conservative treatment for now given hx of Cdiff, per outpt notes GI recommends daily oral vanco for prevention 05/15/21 - Patient feeling more cramps in her lower abdomen Repeat CT abd./pelvis (05/15) - 1. Suboptimal examination without oral and IV contrast. 2. Colonic diverticulosis with persistent acute diverticulitis of the distal descending/proximal sigmoid colon. This has continued to improve as compared to 05/11/2021. 3. No intraperitoneal free air is identified and there is no organized fluid collection to suggest abscess on this unenhanced examination. Per surgery, "crampiness" and pain may be secondary to constipation. Started diet and stool softeners 05/16 -patient had several loose bowel movements since yesterday 05/17 -patient seems to be improving, tolerating clear liquid diet, having bowel movements, advance to diet today 05/18 -patient tolerating low fiber diet, plan for discharge and follow-up as outpatient Hypokalemia, hypomagnesemia -Secondary to poor oral intake -Replace and monitor History of postoperative PE in 2019 Lovenox SQ for DVT prophylaxis Encourage ambulation Hypothyroidism - levothyroxine and cytomel Anxiety/mood disorder/PTSD mood stable, continue desvenlafaxine, fluvoxamine and clonazepam Total Time Total Time Spent Total Time Spent (In Minutes): 40 Discharge Plan Discharge Items Patient Disposition: Home - Self-Care Reason For Visit: CPMPLICATED DIVERTICULITIS Discharge Diagnosis: Acute diverticulitis with microperforation Activity: Per Instructions section Non-emergency contact: Primary Care Provider, Surgeon and [employer] Booker Call non-emergency contact if: you have any medication questions and your symptoms worsen Follow-up/Referrals: Itz Tilley DO, [place] [Physician] - (Follow up within 1 month to discuss possible surgical planning) Dominique Carrillo DO [Primary Care Provider] - (Date & Time 05/24/2021 2:20 PM Provider Dominique Carrillo DO Department [facility] ) Diet: Low Fiber and Low Fat Addtl Attending Provider Instructions: Follow-up with the primary care doctor, the appointment was scheduled for you for May 24. Continue antibiotic treatment for diverticulitis, with Ciprofloxacin and Flagyl. Also continue vancomycin, to prevent C. difficile infection. For pain, take Tylenol up to 3000 mg a day. For more severe pain, take oxycodone as prescribed (this can cause some constipation). You can also take ibuprofen 200mg, up to twice a day. Pending Studies at Discharge: No Stand-Alone Forms: My [employer], Smoking Cessation Medications and DC Order Prescriptions: New vancomycin 125 mg capsule 125 mg PO QAM 10 Days Qty: 10 RF: 0 ciprofloxacin HCl 500 mg tablet 500 mg PO BID 7 Days Qty: 14 RF: 0 oxycodone 5 mg tablet 5 mg PO Q8H Qty: 14 RF: 0 ondansetron HCl [Zofran] 4 mg tablet 4 mg PO BID PRN (Reason: nausea and vomiting) Qty: 7 RF: 0 metronidazole 500 mg tablet 500 mg PO TID 10 Days Qty: 30 RF: 0 Continued albuterol sulfate 90 mcg/actuation HFA aerosol inhaler 2 puffs inhalation Q6H PRN (Reason: shortness of breath or wheezing) Qty: 18 RF: 3 levothyroxine 50 mcg tablet 50 mcg PO Q OTHER DAY RF: 0 levothyroxine 75 mcg tablet 75 mcg PO Q OTHER DAY Qty: 45 RF: 1 liothyronine [Cytomel] 5 mcg tablet 5 mcg PO BID 90 Days Qty: 180 RF: 3 fluvoxamine 25 mg tablet 25 mg PO QAM RF: 0 [id number] oil-vit D3 [Fish Oil-Vit D3] 300-1,000-1,000 mg-mg-unit capsule 1 cap PO DAILY Qty: 30 RF: 0 Probiotic 3 billion cell capsule 3,000 mmu cells PO HS RF: 0 (DME) Aerochamber MV spacer See Dose Instructions .ROUTE .MEDSUPPLY Qty: 1 RF: 0 (DME) nebulizer and compressor device See Dose Instructions [id number] .MEDSUPPLY Qty: 1 RF: 0 (DME) nebulizer accessories kit See Dose Instructions .ROUTE .MEDSUPPLY Qty: 1 RF: 0 desvenlafaxine succinate 100 mg Tablet Extended Release 24 Hr 100 mg PO QAM RF: 0 clonazepam 0.5 mg tablet 0.25 mg PO HS RF: 0 cholecalciferol (vitamin D3) [Vitamin D3] 125 mcg (5,000 unit) Tablet 125 mcg PO HS RF: 0 fluticasone propionate 50 mcg/actuation spray,suspension 2 spray intranasal BID RF: 0 tramadol 50 mg tablet 50 mg PO BID PRN (Reason: pain) Qty: 6 RF: 0 sennosides-docusate sodium [Senokot-S] 8.6-50 mg tablet 1 - 2 tab-cap PO BID PRN (Reason: constipation) Qty: 60 RF: 2 acetaminophen [Tylenol] 325 mg Tablet 650 mg PO QID RF: 0 ondansetron HCl 4 mg tablet 4 mg PO Q4H RF: 0 Discontinued doxycycline hyclate 100 mg capsule 100 mg PO QID RF: 0 Discharge Orders: Discharge Order (Routine); Ordered 05/18/21 Ordered By: Shola Garcia Admission Data Admit Date/Time: 05/12/21 03:22 Attending Provider: Shola Garcia Admit Provider: Santos Hatfield Primary Care Provider: Dominique Carrillo Other Providers: Santos Hatfield ; Madyson Nickerson ; David Birch
== END 2021-05-18 13:21 | disposition home or self-care (01) | DRG 392 ==
LOC: ED 15:52 → 3N 05-12 03:22 → SUATTDRO 05-12 03:22 → 3N 05-12 03:56

== ENCOUNTER 2021-06-16 05:49 | Inpatient (IN) ==
--- NOTE | 2021-06-08 12:43 | Anesthesiology Consultation ---
Date of Service June 08, 2021 Assessment & Plan (1) Encounter for pre-operative examination: - COVID screening: Per assessment on 06/08: Travel screen negative, no known COVID-19 positive contacts or current COVID-19 related symptoms. Patient vaccinated. Surgeon arranging preop COVID testing. Awaiting results. - Pulmonary office visit (12/14/20): "I had an extensive discussion with both the patient and her . Her constellation of symptoms have been difficult to fully comprehend. She clearly antedates prehysterectomy as feeling well and extremely fit utilizing her stationary bicycle and exercise routine compared to how she felt post hysterectomy. There are just some things that cannot be fully explained. I have suggested that she slowly but with a assuredly increase her exercise routine to improve her level of fitness. I thought there was a great chance she could eventually resume and improve her exercise program and fitness regimen in the near future. Lyme disease or a tickborne illness may have attributed to her symptom complex and requires no further treatment. Will refer back to primary care." F/U as needed. - Cardiology office visit (01/25/21): "Atypical chest pain.. Ongoing episodes of dyspnea, lightheadedness, atypical chest discomfort. Recent lab work and cardiac testing unremarkable. Symptoms unlikely to be cardiac in nature as albuterol helps her dyspnea- but does cause her some jitteriness. Symptoms somewhat improved since undergoing a 21 day course of doxycycline for Lyme disease.. Would recommend 2nd opinion with pulmonology (followed with [facility] in the past).. Recommend updated fasting cholesterol panel.. History of pulmonary embolism.. Following her hysterectomy in 2019. Hypercoagulable workup negative. Most recent CT a of the chest negative for recurrent PE. No evidence of pulmonary hypertension per right heart catheterization.. Orthostatic hypotension.. Asymptomatic. Tilt-table test completed in the past. Symptoms improved with increased hydration and liberal salt intake. Notes that her blood pressure is better she wears her compression socks.. Continue use of compression socks and increase hydration with salt intake.. Lyme disease.. Recently diagnosed with Lyme disease at the end of October. Treated with a 21 day course of doxycycline, symptoms improved somewhat." - PCP office visit (05/24/21): "Respiratory: Negative for cough, chest tightness, shortness of breath and wheezing.. Pulmonary: Effort: Pulmonary effort is normal. No respiratory distress. Breath sounds: Normal breath sounds. No wheezing or rales.. Diverticulitis of colon.. Plan.. Scheduling will work to get CT scheduled [facility]. Will await results. Advised to take Zofran and pain medication if needed. Push fluids. ED with worsening pain or fever." - Patient acceptable risk for surgery pending medical necessity (In light of COVID surgery/OR limitations, case reviewed by Dr. Hayes and deemed medically necessary/okay to proceed as scheduled from his perspective. Still awaiting medical necessity documentation from surgeon). Chart Review Chart Review: Patient NOT seen in Pre Admission Testing History Surgery Operation Date: 06/16/21 07:15 Proposed Procedures p Laparoscopic Bowel Resection - Itz Tilley DO, FACS Height/Weight Height: 5 ft 6 in Weight: 64.41 kg Allergies Allergy/AdvReac Type Severity Reaction Status Date / Time codeine Allergy Intermediate Hives Verified 06/08/21 11:21 guaifenesin Allergy Intermediate Hives Verified 06/08/21 11:21 pseudoephedrine Allergy Intermediate Hives Verified 06/08/21 11:21 Sulfa (Sulfonamide Allergy Intermediate Hives Verified 06/08/21 11:21 Antibiotics) thimerosal Allergy Intermediate Eye Verified 06/08/21 12:59 ulcerations Penicillins Allergy Mild Hives Verified 06/08/21 11:21 prochlorperazine Allergy Mild Rash Verified 06/08/21 12:59 [From Compazine] pentosan polysulfate sodium Allergy Unknown Unknown Verified 06/08/21 12:59 [From Elmiron] Medications Home Medications Medication Instructions Recorded Confirmed Last Taken desvenlafaxine succinate 100 mg 100 mg PO QAM 08/21/18 06/08/21 05/11/21 tablet,extended release 24 hr inhalational spacing device #1 ea 03/14/19 06/08/21 Unknown (Aerochamber MV) nebulizer accessories #1 ea 03/14/19 06/08/21 Unknown nebulizer and compressor #1 ea 03/14/19 06/08/21 Unknown albuterol sulfate 90 mcg/actuation 2 puffs INHALATION Q6H PRN #18 gm 09/20/19 06/08/21 04/20/21 aerosol inhaler clonazepam 0.5 mg tablet 0.25 mg PO HS 07/07/20 06/08/2105/10/21 ck-3-clf-epa-fish oil-vit D3 300 1 cap PO DAILY #30 cap 10/07/20 06/08/21 05/10/21 mg-1,000 mg-1,000 unit capsule (Fish Oil-Vit D3) lactobacillus combination no.4 3 3,000 mmu cells PO HS 11/09/20 06/08/21 05/10/21 billion cell capsule (Probiotic) levothyroxine 50 mcg tablet 50 mcg PO Q OTHER DAY tab 03/23/21 06/08/21 05/10/21 levothyroxine 75 mcg tablet 75 mcg PO Q OTHER DAY #45 tab 03/23/21 06/08/21 05/11/21 fluvoxamine 25 mg tablet 25 mg PO QAM 04/07/21 06/08/21 05/11/21 liothyronine 5 mcg tablet (Cytomel) 5 mcg PO BID 90 Days #180 tab 04/13/21 06/08/21 05/11/21 cholecalciferol (vitamin D3) 125 125 mcg PO HS 04/21/21 06/08/21 05/10/21 mcg (5,000 unit) tablet (Vitamin D3) fluticasone propionate 50 2 spray INTRANASAL BID 04/21/21 06/08/21 05/11/21 mcg/actuation nasal spray,suspension acetaminophen 325 mg tablet 650 mg PO QID PRN 05/11/21 06/08/21 05/11/21 (Tylenol) ondansetron HCl 4 mg tablet 4 mg PO BID PRN #7 tab 05/18/21 06/08/21 Unknown (Zofran) oxycodone 5 mg tablet 5 mg PO Q8H #14 tab 05/18/21 06/08/21 Unknown fexofenadine 180 mg tablet 180 mg PO QAM 06/08/21 06/08/21 Unknown levofloxacin 750 mg tablet 750 mg PO DAILY 06/08/21 06/08/21 Unknown metronidazole 500 mg tablet 500 mg PO TID 06/08/21 06/08/21 Unknown Past Medical History Medical History Anxiety and depression Asthma "Mild"/stable 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 with unrestricted hearing of right ear Diverticulitis Fibromyalgia GERD (gastroesophageal reflux disease) Heartburn Hypothyroidism Post traumatic stress disorder Pulmonary embolism Post-op hysterectomy (2019)- was on Eliquis x 3 months Restless leg syndrome "Mild" Spinal stenosis Urinary frequency Past Family History Family History Father Family history of diabetes mellitus Family hx colonic polyps Family/Other Family history of diabetes mellitus 1st cousin Mother Family hx colonic polyps Other No family history of adverse response to anesthesia Past Surgical History Surgical History H/O colonoscopy History of esophagogastroduodenoscopy (EGD) History of hysterectomy History of tonsillectomy and adenoidectomy History of tooth extraction Hx of appendectomy Hx of carpal tunnel repair Right Hx of cholecystectomy Hx of laparoscopy Nausea and vomiting after administration of anesthetic agent Social History Smoking Status: Never smoker Hx Alcohol Use: No Hx Substance Use: No substance use type: does not use Testing Laboratory Results 06/07/21 WBC 7.72 H/H 14.3/44.0 PLATELETS 257 SODIUM 143 POTASSIUM 4.7 CHLORIDE 105 CO2 25 BUN 10 CREATININE 0.7 GLUCOSE 98 Electrocardiogram Date: 09/28/20 Normal sinus rhythm at 79 bpm. Low voltage QRS. Nonspecific ST abnormality. No significant change compared to 07/07/2020 per blade changer review. Chest X-Ray Date: 08/26/20 FINDINGS: PA and lateral chest radiographs are compared to study dated 12/18/2018 and correlated with chest CT dated 07/07/2020. The cardiomediastinal silhouette is unremarkable. The lungs and pleural spaces are clear. There is no pneumothorax. The bony thorax appears intact. Cholecystectomy clips are noted in the right upper quadrant. IMPRESSION: No active disease in the chest. Echocardiogram Date: 10/23/20 LVEF 60-64%. No regional motion abnormality. Grade 1 diastolic dysfunction. Mildly increased concentric LV wall thickness. No significant valvular disease. Stress Test Date: 11/27/20 Type: exercise Treadmill exercise test was normal. There was normal exercise heart rate and blood pressure response without symptoms or EKG evidence of ischemia. Exercise capacity is average. Blood pressure response to exercise was normal. 9.5 METS. 108% MPHR. Cardiac Catheterization Date: 05/21/19 Right heart cath: Taylor cardiac output 3.11 L/min Thermodilution cardiac output 3.4 L/min Hemodynamics Rest Ao:: n/a Final Ao: n/a LV: n/a RA: Mean pressure was 12 mmHg RV: 29 over 10 mmHg PA: 20 over 7 mmHg PW: 15 mmHg Recommendations Recommendations: Medical Therapy and/or Counseling Other Testing CT Abdomen/pelvis (05/31/21): Persistent mild uncomplicated diverticulitis changes within the left lower quadrant. No evidence of obstructive uropathy.
[2021-06-16] MEDS ORDERED: LR 15ML/HR IV SCH (06:00)
[2021-06-16] MEDS ORDERED: cefOXitin 2,000 MG in DEXTROSE 5% 50 ML IV SCH (06:00)
[2021-06-16] MEDS ORDERED: ATROPINE SULFATE 0.1 MG/ML 10ML SYR IV PRN (06:28)
[2021-06-16] MEDS ORDERED: ONDANSETRON INJ 2 MG/ML 2 ML VIAL IV PRN (06:28)
[2021-06-16] MEDS ORDERED: PROPOFOL IV EMULSION 10 MG/ML 20 ML VIAL IV ONE ×7 (06:50→09:03)
[2021-06-16] MEDS ORDERED: SCOPOLAMINE 1 MG TDSY TD ONE (06:51)
[2021-06-16] MEDS ORDERED: fentaNYL citrate 100 MCG/2 ML VIAL ONE (06:51)
[2021-06-16] MEDS ORDERED: MIDAZOLAM HCL 1 MG/ML 2ML VIAL ONE (06:51)
[2021-06-16] MEDS ORDERED: SCOPOLAMINE 1 MG TDSY TD SCH (07:00)
[2021-06-16] MEDS ORDERED: DexMEDEtomidine HCL IV 100 MCG/ML VIAL ONE (07:12)
[2021-06-16] MEDS ORDERED: ROCURONIUM BROMIDE 10 MG/ML 5 ML VIAL IV ONE ×6 (07:13→08:23)
[2021-06-16] MEDS ORDERED: ONDANSETRON INJ 2 MG/ML 2 ML VIAL ONE ×2 (07:13→10:47)
--- NOTE | 2021-06-16 07:14 | History & Physical Bridge Note ---
Date of Service June 16, 2021 History & Physical Bridge Note I have examined the patient, reviewed the History & Physical and in the interval since the performance of the History & Physical I have noted the following changes of clinical significance: no changes noted
[2021-06-16] MEDS ORDERED: BUPIVACAINE LIPOSOME 1.3% 266 MG/20 ML VIAL ONE (07:26)
[2021-06-16] MEDS ORDERED: BUPIVACAINE 0.5 % 5 MG/1 ML MPF 30ML VIAL ONE (07:26)
[2021-06-16] MEDS ORDERED: KETAMINE 50 MG/5 ML SYRINGE ONE (08:02)
[2021-06-16] MEDS ORDERED: ACETAMINOPHEN 1000 MG/100 ML IV IV ONE (08:03)
[2021-06-16] MEDS ORDERED: SUGAMMADEX SODIUM 200 MG/2 ML VIAL IV ONE (08:04)
[2021-06-16] MEDS ORDERED: ePHEDrine sulfate 50 MG/ML SYR ONE (09:29)
[2021-06-16] MEDS ORDERED: PHENYLEPHRINE 100MCG/ML 5ML SYR ONE ×2 (09:29→09:39)
[2021-06-16] MEDS ORDERED: DEXAMETHASONE SOD INJ 4 MG/ML VIAL ONE ×2 (09:39)
--- NOTE | 2021-06-16 10:46 | Post Operative Brief Note ---
PG Immediate Post Op with CF Date of Surgery June 16, 2021 Pre & Post Diagnosis Operation Date: 06/16/21 07:15 Pre-Op Diagnosis: Diverticulitis of the Large Intestine with Complication Post-Op Diagnosis: Diverticulitis of the Large Intestine with Complication I identified the patient and participated in the time-out.: Yes Procedure Operation Date: 06/16/21 07:15 Actual Procedures p Laparoscopic Assisted Lysis of Adhesions, Laparoscopic Mobilization of Splenic Flexure, Laparoscopic Sigmoidectomy(Not Applicable) - Itz Tilley DO, FACS Surgeon Itz Tilley DO, FACS Meteorologist Liaison Vasyl Jiménez Estimated Blood Loss 20 Findings Consistent with Post-Op Diagnosis Omental adhesions to abdominal wall from prior surgery taken down laparoscopically with harmonic and blunt dissection. Some diverticulosis with some focal inflammation in the proximal sigmoid colon. Redundant sigmoid colon. Colon was mobilized from lateral to medial, splenic flexure mobilized. Colon exteriorized and resected, end-to-end anastomosis performed with 28 mm EEA. Leak test negative. Exparel injected, good hemostasis. Specimens Specimen Description: Permanent Specimen A: Sigmoid Colon Drains Donald Catheter Disposition Accompanied Patient To Recovery: No Disposition: Recovery Room
[2021-06-16] MEDS: fentaNYL citrate 100 MCG/2 ML VIAL IV PRN ×5 (11:06→12:01)
--- NOTE | 2021-06-16 11:13 | Operative Report ---
PG Post Operative Report Pre & Post Diagnosis Operation Date: 06/16/21 07:15 Pre-Op Diagnosis: Diverticulitis of the Large Intestine with Complication Post-Op Diagnosis: Diverticulitis of the Large Intestine with Complication I identified the patient and participated in the time-out.: Yes Procedure Operation Date: 06/16/21 07:15 Actual Procedures p Laparoscopic Assisted Lysis of Adhesions, Laparoscopic Mobilization of Splenic Flexure, Laparoscopic Sigmoidectomy(Not Applicable) - Itz Tilley DO, FACS Surgeon Itz Tilley DO, [place] Power Tong Operator Vasyl Jiménez Estimated Blood Loss 20 Findings Consistent with Post-Op Diagnosis Omental adhesions to abdominal wall from prior surgery taken down laparoscopically with harmonic and blunt dissection. Some diverticulosis with some focal inflammation in the proximal sigmoid colon. Redundant sigmoid colon. Colon was mobilized from lateral to medial, splenic flexure mobilized. Colon exteriorized and resected, end-to-end anastomosis performed with 28 mm EEA. Leak test negative. Exparel injected, good hemostasis. Specimens sigmoid colon Anesthesia Type General Complications none Disposition Accompanied Patient To Recovery: No Disposition: Recovery Room Indications 55-year-old female with several recent admissions and ER visits for diverticulitis since early April. She continues to have symptoms. She did have a prior colonoscopy few years ago. After discussion of her options, patient elected for surgery. Plan for laparoscopic assisted sigmoidectomy, possible open, possible ostomy. The risks of the procedure were discussed, all questions were answered, and the patient agreed to proceed with surgery as planned. Description of Procedure The patient was properly identified, consented, and taken to the operating room where she was placed in the low lithotomy position. General endotracheal anesthesia was induced. SCDs and a safety belt were placed. Preoperative antibiotics were administered. A Donald catheter was placed. The patient's abdomen was prepped and draped in the standard sterile fashion. Surgical timeout was performed and all parties were in agreement that this was the correct patient and procedure to be performed and we continued as planned. A vertical midline infraumbilical incision was made with electrocautery and deepened down to the fascia with blunt dissection. The base of the umbilicus was grasped with a Laurie. There was a small umbilical hernia present that was noted at this time. The Laurie was elevated towards the ceiling and the fascia was incised with a knife. Stay sutures were placed on either side of the midline. The Kyrie trocar was then placed and the abdomen insufflated with carbon dioxide which the patient tolerated without incident. The laparoscope was inserted and the abdomen inspected. No damage from initial trocar placement was noted. There was some omental adhesions which made it difficult to visualize. A 5 mm port was placed in the subxiphoid position just to the right of midline. Adhesions from the prior open appendectomy were taken down with the Sonicision. Next, 5 mm ports were then placed in the midline just above the pubic symphysis and in the midline below the xiphoid. The patient was placed in Trendelenburg position and the rotated towards the right. The small bowel was swept out of the way. The entire colon was redundant and quite floppy. The cecum extended into the pelvis. There was evidence of a prior appendectomy. There was also evidence of a hysterectomy. Sigmoid colon was examined and appeared to be quite supple and healthy with some diverticulosis. There was an area of focal inflammation in the mesentery in the proximal sigmoid colon. We began by performing a lateral to medial dissection taking down the white line of Toldt using Sonicision. This was extended distally to the intraperitoneal rectum and proximally to the splenic flexure. The splenic flexure was then mobilized. The omentum was taken down along the splenic flexure and the colon was mobilized off its retroperitoneal attachments. Portion of the splenocolic ligament was taken down. Colon appeared that it would reach easily and so we chose to exteriorize the colon for the resection. Laparoscopy was ceased and the infraumbilical midline incision was extended inferiorly for a length of approximately 7 cm. The wound protector was placed within the wound after the fascia was opened and the colon was exteriorized. The colon reached easily as did the small bowel. A window was created in the mesentery and the colon was divided with a purple loaded 60 mm stapler approximately 5 cm proximal to the area of inflammation. The sigmoid colon was divided distally at the splaying of the Tenia in a similar fashion. We then completed the resection of the mesentery using the Sonicisionl. The sigmoidal artery and vein were ligated with 2-0 silk ties x2. Hemostasis appeared excellent. An end to end anastomosis was then created with a 28mm EEA stapler. The staple line was excision and the anvil was placed in the distal left colon and a pursestring suture with 2-0 prolene was used to secure it into place. The GelPort was placed and laparoscopy was resumed. The stapler was inserted through the rectum and the anastomosis was completed under direct visualization. There were 2 complete donuts. There was no twisting of the colon and the anastomosis appeared to be under a minimal amount of tension. We then mobilized more of the splenic flexure and the anastomosis appeared free of any tension. A leak test was performed by submerging the anastomosis under saline and inflating it with air using the proctoscope. There was no evidence of a leak. The abdomen was then irrigated with warm saline. The abdomen was again inspected laparoscopically and there is no evidence of significant bleeding or complication. The ports were removed and laparoscopy was ceased. The fascia was then injected with exparel mixed with 0.5% marcaine. The fascia was closed with a #1 looped PDS x1. The wound was irrigated and the incision was then closed with ganesh. The remaining port sites were closed with ganesh. Sterile dressings were placed. The patient was extubated in the operating room and taken to the PACU where she recovered without apparent incident. All sponge, instrument, and needle counts were correct. The patient tolerated the procedure well. The colon specimen was sent to Pathology. The physician's pharmacist assistant was present and scrubbed for the entirety of the procedure. He was critical in positioning the patient, prepping and draping, retraction and exposure, driving the laparoscope, resection of the colon, creation the anastomosis, closure the incisions, and placement of the dressings. I attest to the content of the Intraoperative Record and any orders documented therein. Any exceptions are noted below.
[2021-06-16] MEDS ORDERED: MoRPHine SULFATE 10 MG/ML CARP/VIAL ONE (12:21)
[2021-06-16] MEDS: MoRPHine SULFATE 10 MG/ML CARP/VIAL IV PRN ×5 (12:22→13:00)
[2021-06-16] MEDS: LACTATED RINGER'S 1,000 ML IV SCH ×2 (13:35→20:37)
[2021-06-16] MEDS ORDERED: NALOXONE HCL 0.4 MG/1 ML VIAL/CARP IV PRN (13:50)
[2021-06-16] MEDS ORDERED: ALBUTEROL HFA 8 GM INHALER INH PRN (13:50)
[2021-06-16] MEDS ORDERED: HYDROmorphone PCA 30 MG/30 ML IV PRN (13:50)
--- NOTE | 2021-06-16 14:53 | Anesthesiology Progress Note ---
Date of Service June 16, 2021 Anesthesia Post Procedure Vital Signs Vital Signs: Temp Pulse Pulse Resp BP Pulse Ox 06/16/21 14:28 36.7 C 97 H 16 125/80 93 06/16/21 13:57 36.6 C 16 116/74 06/16/21 13:50 36.8 C 97 H 16 114/72 97 06/16/21 12:55 36.5 C 103 H 15 111/70 100 06/16/21 12:45 85 15 108/66 100 06/16/21 12:35 85 14 111/68 100 06/16/21 12:25 94 H 16 106/69 100 06/16/21 12:15 88 18 117/69 100 06/16/21 12:05 88 14 108/66 100 06/16/21 11:55 94 H 13 105/59 L 100 06/16/21 11:45 83 13 105/58 L 100 06/16/21 11:35 88 13 101/60 100 06/16/21 11:25 78 12 112/69 98 06/16/21 11:15 81 14 114/81 99 06/16/21 11:05 76 15 111/74 100 06/16/21 10:59 36.5 C 90 18 103/70 100 06/16/21 06:22 36.7 C 85 18 132/82 98 Pain Intensity Abdomen: Pain Intensity: 8 Transfer of Care Handoff Completed per policy Notes Mental Status: alert / awake / arousable and participated in evaluation Patient Amnestic to Procedure: Yes Nausea / Vomiting: adequately controlled Pain: adequately controlled Airway Patency, RR, SpO2: stable & adequate BP & HR: stable & adequate Hydration State: stable & adequate Anesthetic Complications: no major complications apparent and Pt Satisfied with anesthetic care
[2021-06-16] MEDS: ONDANSETRON INJ 2 MG/ML 2 ML VIAL IV PRN ×2 (15:01→19:48)
[2021-06-16] MEDS: SODIUM CHLORIDE 0.9% 1000ML 1,000 ML IV SCH (15:15)
[2021-06-16] MEDS: cefOXitin 2,000 MG in DEXTROSE 5% 50 ML IV SCH ×2 (15:22→20:35)
[2021-06-16] MEDS ORDERED: CHECK SCOPOLAMINE PATCH PLACEMENT SCH (16:00)
[2021-06-16] MEDS: ACETAMINOPHEN 1,000 MG/100 ML VIAL IV SCH (16:37)
[2021-06-16] MEDS: KETOROLAC TROMETHAMINE 15 MG/ML VIAL IV SCH ×2 (16:37→21:44)
[2021-06-16] MEDS: METOCLOPRAMIDE HCL INJ 5 MG/ML 2 ML VIAL IV PRN (20:12)
[2021-06-16] MEDS: FLUTICASONE PROPIONATE NA SPR 16 GM BTL SCH (20:15)
[2021-06-16] MEDS: LIOTHYRONINE SODIUM 5 MCG TAB PO SCH (20:16)
[2021-06-16] MEDS: clonazePAM 0.25 MG TAB PO PRN (21:44)
[2021-06-17] MEDS: ACETAMINOPHEN 1,000 MG/100 ML VIAL IV SCH ×2 (00:41→08:29)
[2021-06-17] MEDS: ONDANSETRON INJ 2 MG/ML 2 ML VIAL IV PRN ×2 (03:16→21:47)
[2021-06-17] MEDS: cefOXitin 2,000 MG in DEXTROSE 5% 50 ML IV SCH ×2 (03:25→08:30)
[2021-06-17] MEDS: KETOROLAC TROMETHAMINE 15 MG/ML VIAL IV SCH ×4 (03:31→22:40)
[2021-06-17] MEDS: METOCLOPRAMIDE HCL INJ 5 MG/ML 2 ML VIAL IV PRN (03:37)
[2021-06-17] MEDS: LACTATED RINGER'S 1,000 ML IV SCH ×3 (05:52→22:37)
[2021-06-17 06:20] LABS: Eosinophils # (auto) 0.01 K/uL (0-0.5); Eosinophils % (auto) 0.1 %; Hematocrit (blood only) 34.2 % (37-47); Hemoglobin 11.3 g/dL (12.0-16.0); Immature Granulocytes # (auto) 0.02 K/uL (0.00-0.02); Immature Granulocytes % (auto) 0.2 %; Lymphocytes # (auto) 1.37 K/uL (1.2-3.4); Lymphocytes % (auto) 11.1 %; Mean Corpuscular Volume 87.9 fL (80-100); Mean Platelet Volume 9.2 fL (7.4-10.4); Monocytes # (auto) 1.18 K/uL (0.11-0.59); Monocytes % (auto) 9.5 %; Neutrophils # (auto) 9.79 K/uL (1.4-6.5); Neutrophils % (auto) 79.1 %; Platelet Count 200 K/uL (130-400); RDW Standard Deviation 45.2 fL (36.4-46.3); Red Blood Count 3.89 M/uL (4.2-5.4); White Blood Count 12.37 K/uL (4.8-10.8)
[2021-06-17] MEDS ORDERED: LEVOTHYROXINE SODIUM 75 MCG TABLET PO SCH (06:30)
[2021-06-17 06:54] LABS: BUN Creatinine Ratio 7.2 (10-20); Calcium 8.3 mg/dl (8.5-10.1); Est GFR (African American) 114.6 ml/min; Est GFR (Non-African American) 98.9 ml/min; Potassium 3.9 mmol/L (3.5-5.1)
--- NOTE | 2021-06-17 08:51 | Surgery Progress Note ---
Date of Service June 17, 2021 Assessment & Plan (1) Diverticulitis of large intestine with complication: Plan: POD 1 lap assisted sigmoid resection consider full later if nausea improves add phenergan ambulate cont SAMPLE MAKER HAND Admission and Anticipated Discharge Date Admission Date: June 16, 2021 Supervising Physician Co-Signing Physician Notes pnt s&e, agree with above. POD#1 lap assisted sigmoidectomy. Doing well, nausea improved, pain controlled but falls behind with interdisciplinary professor. has ambulated. + flatus. passed some blood clot via rectum. tolerating clears. incision with dressing, c/d/i. abd soft, appropriately ttp. adv diet to fulls tonight, d/c interdisciplinary professor and iv APAP, transition to oral pain meds, cont iv toradol. possible d/c tomorrow, likely over weekend. Subjective some nausea but tolerating liquids and having flatus, walking to bathroom Physical Exam Constitutional: WD/WN, vitals as above Gastrointestinal (Abdomen): Inspection/Auscultation: + abdominal surgical incision (minimal bloody drainage, dressing changed); abdomen not distended Percussion/Palpation: abdomen soft Results & Data ([facility]) Vital Signs (Past 12 Hours) Vital Signs Temp Pulse Resp BP Pulse Ox 06/17/21 07:36 36.8 C 81 12 115/74 98 06/17/21 03:30 36.9 C 78 21 116/76 97 06/17/21 02:30 36.7 C 75 14 109/69 94 06/16/21 22:30 36.9 C 91 H 20 108/69 95 PG Care Time/CCT Total # of Minutes Spent Total Time Spent with Patient: Total time spent is greater than 50% in coordination of care (as documented) at patient's floor/unit and/or counseling patient: Coding Level of Care Code None Diagnoses Diverticulitis of large intestine with complication K57.32
[2021-06-17] MEDS ORDERED: NON-FORMULARY MEDICATION (Desvenlafaxine Succinate [Pristiq] 100 mg Tablet Extended Releas PO SCH (09:00)
[2021-06-17] MEDS: ENOXAPARIN INJ 30 MG/0.3 ML SYR SQ SCH (09:11)
[2021-06-17] MEDS: DESVENLAFAXINE SUCCINATE ER 100 MG TABLET PO SCH (09:12)
[2021-06-17] MEDS: FEXOFENADINE HCL 180 MG TAB PO SCH (09:12)
[2021-06-17] MEDS: LIOTHYRONINE SODIUM 5 MCG TAB PO SCH ×3 (09:12→20:09)
[2021-06-17] MEDS: FLUTICASONE PROPIONATE NA SPR 16 GM BTL SCH ×2 (09:13→20:09)
[2021-06-17] MEDS: PROMETHAZINE HCL 12.5 MG in SODIUM CHLORIDE 0.9% 50 ML IV PRN ×3 (09:51→22:39)
[2021-06-17] MEDS ORDERED: oxyCODONE/ACETAMINOPHEN 5mg/325mg TAB PO PRN (13:36)
[2021-06-17] MEDS ORDERED: MoRPHine SULFATE 2 MG/ML CARP IV PRN (13:36)
[2021-06-17] MEDS: SODIUM CHLORIDE 0.9% 1000ML 1,000 ML IV SCH (14:06)
[2021-06-17] MEDS: oxyCODONE/ACETAMINOPHEN 5mg/325mg TAB PO PRN ×2 (14:07→20:05)
[2021-06-17] MEDS: clonazePAM 0.25 MG TAB PO PRN (20:11)
[2021-06-18] MEDS: oxyCODONE/ACETAMINOPHEN 5mg/325mg TAB PO PRN (02:53)
[2021-06-18] MEDS: KETOROLAC TROMETHAMINE 15 MG/ML VIAL IV SCH ×2 (04:21→10:02)
[2021-06-18] MEDS ORDERED: LEVOTHYROXINE SODIUM 50 MCG TABLET PO SCH (06:30)
[2021-06-18 07:38] LABS: Basophils # (auto) 0.01 K/uL (0-0.2); Basophils % (auto) 0.1 %; Eosinophils # (auto) 0.16 K/uL (0-0.5); Eosinophils % (auto) 1.6 %; Hematocrit (blood only) 34.1 % (37-47); Immature Granulocytes # (auto) 0.02 K/uL (0.00-0.02); Immature Granulocytes % (auto) 0.2 %; Lymphocytes # (auto) 3.88 K/uL (1.2-3.4); Mean Corpuscular Hemoglobin 28.7 pg (25-34); Mean Corpuscular Hgb Conc 32.3 g/dL (32-36); Mean Platelet Volume 9.5 fL (7.4-10.4); Monocytes # (auto) 0.62 K/uL (0.11-0.59); Monocytes % (auto) 6.2 %; Neutrophils # (auto) 5.27 K/uL (1.4-6.5); Neutrophils % (auto) 52.9 %; Platelet Count 208 K/uL (130-400); RDW Coefficient of Variation 14.3 % (11.5-14.5); Red Blood Count 3.83 M/uL (4.2-5.4); White Blood Count 9.96 K/uL (4.8-10.8)
[2021-06-18] MEDS: FEXOFENADINE HCL 180 MG TAB PO SCH (07:51)
[2021-06-18] MEDS: LIOTHYRONINE SODIUM 5 MCG TAB PO SCH (07:51)
[2021-06-18] MEDS: ENOXAPARIN INJ 30 MG/0.3 ML SYR SQ SCH (07:51)
[2021-06-18] MEDS: FLUTICASONE PROPIONATE NA SPR 16 GM BTL SCH (07:51)
[2021-06-18] MEDS: DESVENLAFAXINE SUCCINATE ER 100 MG TABLET PO SCH (07:51)
[2021-06-18] MEDS: ONDANSETRON INJ 2 MG/ML 2 ML VIAL IV PRN (07:56)
[2021-06-18 08:08] LABS: BUN Creatinine Ratio 5.5 (10-20); Calcium 8.2 mg/dl (8.5-10.1); Creatinine Clr Calc Pharmacy 101.5 ml/min; Est GFR (African American) 120.6 ml/min; Est GFR (Non-African American) 104.1 ml/min; Potassium 3.6 mmol/L (3.5-5.1)
[2021-06-18] MEDS ORDERED: oxyCODONE HCL IR 5 MG TAB (IMMEDIATE RELEASE) PO PRN ×2 (08:53)
[2021-06-18] MEDS ORDERED: ACETAMINOPHEN 325 MG TAB PO SCH (09:00)
--- NOTE | 2021-06-18 09:23 | Surgery Progress Note ---
Date of Service June 18, 2021 Assessment & Plan (1) Diverticulitis of large intestine with complication: Plan: POD 2 lap assisted sigmoid resection WBC 9.9, Hbg 11, VSS Tolerating full liquids, will advance to low fiber today Incisions c/d/i, wear abdominal binder for comfort as able + bowel function, some bloody BM's to be expected. will continue to monitor. Hbg and vitals are stable Will split oxycodone and tylenol orally for pt If doing very well can consider discharge after lunch today, if prefers to stay until tomorrow that is okay Admission and Anticipated Discharge Date Admission Date: June 16, 2021 Supervising Physician Co-Signing Physician Notes pnt s&e, agree with above. POD#2 lap assisted sigmoidectomy. Doing well, +flatus, tolerated full liquids. has ambulated. incision w/o infection. abd soft, appropriately ttp. adv diet to low fiber, separate APAP from oxycodone tabs, cont iv toradol. possible d/c today or over weekend. Dr. Carlos covering. Subjective Patient doing well. Tolerating full liquids. Abdomen rumbling. Having some BM's, some mixed with blood. Pain is controlled with PO pain, but she met the limit for Tylenol today so is starting to have a little more pain this AM. Phenergan helped her nausea. Physical Exam Physical Exam: awake/alert Gastrointestinal (Abdomen): Inspection/Auscultation: + abdominal surgical incision (c/d/i with ganesh, no signs of infection); abdomen not distended Percussion/Palpation: abdomen soft Results & Data ([facility]) Vital Signs (Past 12 Hours) Vital Signs Temp Pulse Resp BP Pulse Ox 06/18/21 07:12 36.7 C 77 16 120/82 96 06/17/21 22:25 36.5 C 75 16 124/83 100 PG Care Time/CCT Total # of Minutes Spent Total Time Spent with Patient: Total time spent is greater than 50% in coordination of care (as documented) at patient's floor/unit and/or counseling patient: Coding Level of Care Code None Diagnoses Diverticulitis of large intestine with complication K57.32
[2021-06-18] MEDS: ACETAMINOPHEN 325 MG TAB PO SCH ×2 (09:56→13:01)
--- NOTE | 2021-06-22 14:24 | Discharge Summary ---
Date of Service June 18, 2021 Principal Diagnosis Complicated diverticulitis Discharge Exam Constitutional WD/WN, vitals as above Gastrointestinal (Abdomen) Inspection/Auscultation: + abdominal surgical incision (dry, no erythema); abdomen not distended Percussion/Palpation: abdomen soft Discharge Data Allergies Allergy/AdvReac Type Severity Reaction Status Date / Time codeine Allergy Intermediate Hives Verified 06/16/21 06:15 guaifenesin Allergy Intermediate Hives Verified 06/16/21 06:15 pseudoephedrine Allergy Intermediate Hives Verified 06/16/21 06:15 Sulfa (Sulfonamide Allergy Intermediate Hives Verified 06/16/21 06:15 Antibiotics) thimerosal Allergy Intermediate Eye Verified 06/16/21 06:15 ulcerations Penicillins Allergy Mild Hives Verified 06/16/21 06:15 prochlorperazine Allergy Mild Rash Verified 06/16/21 06:15 [From Compazine] Procedures Performed Operation Date: 06/16/21 07:15 Actual Procedures p Laparoscopic Assisted Lysis of Adhesions, Laparoscopic Mobilization of Splenic Flexure, Laparoscopic Sigmoidectomy(Not Applicable) - Itz Tilley DO, FACS Hospital Course (1) Diverticulitis of large intestine with complication: 56 y/o female with recent admission for diverticulitis with perforation now taken to the OR for laparoscopic sigmoid resection and primary anastomosis. The procedure was well tolerated. She was started on clears liquids on day 1. By day two she was having bowel movements and was able to tolerate advancing diet and oral analgesics. She was stable for discharge home later that evening. Total Time Total Time Spent Total Time Spent (In Minutes): 15 Discharge Plan Discharge Items Patient Disposition: Home - Self-Care Reason For Visit: Persistent Diverticulitis Discharge Diagnosis: laparoscopic sigmoid colon resection Activity: Per Instructions section Lifting: No more than 10 pounds Bathing Comment: may shower; no soaking in tubs/pools Exercise/Sports: Wait until after follow-up appointment Driving/Machine Use: no driving while taking narcotics for pain Non-emergency contact: Surgeon Call non-emergency contact if: you have any medication questions, your symptoms worsen, your pain is not controlled, your pain is worsening, you have a fever, your temperature is above 101.5, your wound has increased redness, your wound has increased drainage and your wound pain has increased Follow-up/Referrals: Chambers,Itz M., DO, FACS [Physician] - (Please call to schedule follow up in clinic within 2 weeks) Dominique Carrillo DO [Primary Care Provider] - Diet: Low Fiber Addtl Attending Provider Instructions: Your surgical ganesh will be removed at your follow up appointment You may purchase Tylenol over the counter for additional pain control. Do not exceed >3grams of Acetaminophen within a 24 hour time period. You may also purchase Ibuprofen over the counter if needed for additional pain control, take with food. Pending Studies at Discharge: Yes Studies:: surgical pathology Stand-Alone Forms: [facility], Smoking Cessation Medications and DC Order Prescriptions: Continued albuterol sulfate 90 mcg/actuation HFA aerosol inhaler 2 puffs inhalation Q6H PRN (Reason: shortness of breath or wheezing) Qty: 18 RF: 3 levothyroxine 50 mcg tablet 50 mcg PO Q OTHER DAY RF: 0 levothyroxine 75 mcg tablet 75 mcg PO Q OTHER DAY Qty: 45 RF: 1 liothyronine [Cytomel] 5 mcg tablet 5 mcg PO BID 90 Days Qty: 180 RF: 3 fluvoxamine 25 mg tablet 25 mg PO QAM RF: 0 [id number] oil-vit D3 [Fish Oil-Vit D3] 300-1,000-1,000 mg-mg-unit capsule 1 cap PO DAILY Qty: 30 RF: 0 Probiotic 3 billion cell capsule 3,000 mmu cells PO HS RF: 0 (DME) Aerochamber MV spacer See Dose Instructions .ROUTE .MEDSUPPLY Qty: 1 RF: 0 (DME) nebulizer and compressor device See Dose Instructions [id number] .MEDSUPPLY Qty: 1 RF: 0 (DME) nebulizer accessories kit See Dose Instructions .ROUTE .MEDSUPPLY Qty: 1 RF: 0 desvenlafaxine succinate [Pristiq] 100 mg Tablet Extended Release 24 Hr 100 mg PO QAM RF: 0 clonazepam [Klonopin] 0.5 mg tablet 0.25 mg PO HS RF: 0 fexofenadine 180 mg Tablet 180 mg PO QAM RF: 0 cholecalciferol (vitamin D3) [Vitamin D3] 125 mcg (5,000 unit) Tablet 125 mcg PO HS RF: 0 fluticasone propionate [Flonase Allergy Relief] 50 mcg/actuation spray,suspension 2 spray intranasal BID RF: 0 acetaminophen [Tylenol] 325 mg Tablet 650 mg PO QID PRN (Reason: Pain) RF: 0 ondansetron HCl [Zofran] 4 mg tablet 4 mg PO BID PRN (Reason: nausea and vomiting) Qty: 7 RF: 0 Discontinued levofloxacin 750 mg tablet 750 mg PO DAILY RF: 0 metronidazole 500 mg tablet 500 mg PO TID Qty: 21 RF: 0 oxycodone 5 mg tablet 5 mg PO Q8H PRN (Reason: Pain) RF: 0 No Action oxycodone 5 mg tablet 5 - 10 mg PO Q6H PRN (Reason: pain) Qty: 20 RF: 0 Discharge Orders: Discharge Order (Routine); Ordered 06/18/21 Ordered By: China Vargas/Other Patient Handouts: DVT Post Op Prevention Admission Data Admit Date/Time: 06/16/21 11:00 Attending Provider: Itz Tilley Admit Provider: Itz Tilley Primary Care Provider: Dominique Carrillo Other Interventions: Discharge Summary Assessment (RN) Last Done: 06/18/21 13:25 Coding Level of Care Code D/C DAY MANAGEMENT <30 MINS Diagnoses Diverticulitis of large intestine with complication K57.32
== END 2021-06-18 14:17 | disposition home or self-care (01) | DRG 330 ==
LOC: ASU 05:49 → 3N 11:00
DX: J45.909 Unspecified asthma, uncomplicated; Z20.822 Contact with and (suspected) exposure to COVID-19; F43.10 Post-traumatic stress disorder, unspecified; R11.0 Nausea; Z88.2 Allergy status to sulfonamides; E03.9 Hypothyroidism, unspecified; Z79.890 Hormone replacement therapy; Z88.5 Allergy status to narcotic agent; M79.7 Fibromyalgia; Z79.2 Long term (current) use of antibiotics; Z88.8 Allergy status to other drugs, medicaments and biological substances; K57.32 Diverticulitis of large intestine without perforation or abscess without bleeding; Q43.8 Other specified congenital malformations of intestine; Z79.899 Other long term (current) drug therapy; Z86.711 Personal history of pulmonary embolism; Z20.828 Contact with and (suspected) exposure to other viral communicable diseases; Z88.0 Allergy status to penicillin